=== PATIENT | male | born 1965 | race Caucasian/White ===

== ENCOUNTER 2021-10-19 17:02 | Emergency (ER) | payer OTHER, SELFPAY ==
[2021-10-19 17:09] VITALS: BP 161/99; PULSE 106; RESP 18; TEMP 36.9; O2SAT 98
--- NOTE | 2021-10-19 17:16 | ED.URI ---
HPI - URI/Sore Throat General Chief Complaint: Upper Respiratory Infection Stated Complaint: sinu drainage and ear pain Time Seen by Provider: 10/19/21 17:18 Source: patient and RN notes reviewed Mode of arrival: ambulatory Limitations: no limitations History of Present Illness HPI Narrative: 56-year-old male presents with concern for 7-day history of facial pressure, nasal congestion, cough, chest congestion, postnasal drip, left ear pain. Reports he is taking multisymptom cold medicine for 3 days without relief. He denies fever, bodies, chills, sweats, nausea, vomit, diarrhea. Denies drainage from left ear. MD elicited complaint: cough and sore throat Related Data Home Medications Medication Instructions Recorded Confirmed amlodipine 5 mg tablet 5 mg DAILY 10/19/21 10/19/21 atenolol 50 mg tablet 50 mg DAILY 10/19/21 10/19/21 atorvastatin 40 mg tablet 1 tablet DAILY 10/19/21 10/19/21 budesonide-formoterol HFA 160 2 inh inhalation BID 10/19/21 10/19/21 mcg-4.5 mcg/actuation aerosol inhaler (Symbicort) citalopram 40 mg tablet 40 tablet DAILY 10/19/21 10/19/21 hydrocodone 10 mg-acetaminophen 1 tablet TID 10/19/21 10/19/21 325 mg tablet methocarbamol 500 mg tablet 1 tablet BID 10/19/21 10/19/21 pantoprazole 40 mg tablet,delayed 1 tablet PO DAILY 10/19/21 10/19/21 release trazodone 50 mg tablet 1 tablet DAILY 10/19/21 10/19/21 Allergies Allergy/AdvReac Type Severity Reaction Status Date / Time No Known Allergies Allergy Verified 10/19/21 17:15 Review of Systems Review of Systems: CONSTITUTIONAL: Denies malaise chills, sweats, or fever. EYES: Denies visual changes, redness, or discharge. ENT: Reports rhinorrhea, congestion, sinus pain, otalgia. Sore throat. CARDIOVASCULAR: Denies chest pain, palpitations, or edema. RESPIRATORY: Reports cough. Denies dyspnea. GASTROINTESTINAL: Denies abdominal pain, nausea, vomiting, diarrhea SKIN: Denies rash or itching. MUSCULOSKELETAL: Denies myalgia. NEUROLOGIC: Denies headache. All systems reviewed & are unremarkable except as noted in HPI and below PMFSH Comments At time of signature, agree with nursing past medical, surgical, social and family history. There is no relevant family history pertinent to the presenting complaint Exam Narrative: GENERAL: Nontoxic-appearing and in no acute distress. HEAD: Normocephalic EYES: PERRLA, conjunctivae clear ENT: Nares clear, turbinates edematous and erythematous, sinus tenderness. Mucous membranes moist. Right TM pearly avilez with dull light reflex, left TM erythematous and bulging; no tragal tenderness. Oropharynx not erythematous without lesions. Tonsils not enlarged and without exudate, no drooling, no hoarseness, no trismus, uvula midline. NECK: Supple. No lymphadenopathy CHEST: Clear to auscultation, breath sounds equal. No wheezing, rhonchi, rales, or stridor. No respiratory distress, speaks in full sentences. HEART: Regular rate and rhythm. No murmur heard. SKIN: Warm, dry, no rash. NEURO: Alert and oriented x3. PSYCH: Normal mood and affect Course Course Emergency Course: Patient is aware of diagnosis, understands and agrees to treatment plan. Anticipatory guidance given. Patient agrees to follow-up as directed and is aware of reasons to seek care at the emergency department. Portions of this record may have been created with voice recognition software Level of Care: Express Care Visit Vital Signs Vital signs: Vital Signs Temperature 98.4 F 10/19/21 17:09 Pulse Rate 106 H 10/19/21 17:09 Respiratory Rate 18 10/19/21 17:09 Blood Pressure 161/99 H 10/19/21 17:09 Pulse Oximetry 98 10/19/21 17:09 Oxygen Delivery Room Air 10/19/21 17:09 Temperature 98.4 F 10/19/21 17:09 Pulse Rate 106 H 10/19/21 17:09 Respiratory Rate 18 10/19/21 17:09 Blood Pressure 161/99 H 10/19/21 17:09 Pulse Oximetry 98 10/19/21 17:09 Oxygen Delivery Room Air 10/19/21 17:09 Reviewed. MDM - URI/So
== END 2021-10-19 17:38 | disposition home or self-care (01) ==
PROVIDERS: Emergency Provider Nurse Practitioner; PCP Internal Medicine
DX: H66.002 Acute suppurative otitis media without spontaneous rupture of ear drum, left ear (principal); E78.00 Pure hypercholesterolemia, unspecified; I10 Essential (primary) hypertension; J44.9 Chronic obstructive pulmonary disease, unspecified; G62.9 Polyneuropathy, unspecified
CPT/HCPCS: 99213; G0463

== ENCOUNTER 2022-09-06 15:20 | Emergency (ER) | payer OTHER, SELFPAY ==
[2022-09-06 15:27] VITALS: BP 144/85; PULSE 100; RESP 16; TEMP 37.2; O2SAT 97
--- NOTE | 2022-09-06 15:29 | ED.URI ---
HPI - URI/Sore Throat General Chief Complaint: Upper Respiratory Infection Stated Complaint: head/throat/ears Source: patient and RN notes reviewed History of Present Illness HPI Narrative: 57 yo M presents to urgent care with complaints of worsening congestion, facial pressure and pain behind the corners of the eyes, cough, and chest congestion. Pt states he has had his symptoms for the last 3 days. Denies any fevers, chills, vomiting, diarrhea, chest pain, or SOB. PT has been taking OTC cold and flu meds with minimal relief. Related Data Home Medications Medication Instructions Recorded Confirmed amlodipine 5 mg tablet 5 mg DAILY 10/19/21 10/19/21 atenolol 50 mg tablet 50 mg DAILY 10/19/21 10/19/21 atorvastatin 40 mg tablet 1 tablet DAILY 10/19/21 10/19/21 budesonide-formoterol HFA 160 2 inh inhalation BID 10/19/21 10/19/21 mcg-4.5 mcg/actuation aerosol inhaler (Symbicort) citalopram 40 mg tablet 40 tablet DAILY 10/19/21 10/19/21 hydrocodone 10 mg-acetaminophen 1 tablet TID 10/19/21 10/19/21 325 mg tablet methocarbamol 500 mg tablet 1 tablet BID 10/19/21 10/19/21 pantoprazole 40 mg tablet,delayed 1 tablet PO DAILY 10/19/21 10/19/21 release trazodone 50 mg tablet 1 tablet DAILY 10/19/21 10/19/21 Allergies Allergy/AdvReac Type Severity Reaction Status Date / Time No Known Allergies Allergy Verified 10/19/21 17:15 Review of Systems Review of Systems: Pertinent positives and pertinent negatives per HPI. PMFSH Comments At the time of my signature, I reviewed and agree with the nursing past medical, surgical, social, and family history. There is no relevant family history pertinent to the patient complaint. Exam Narrative: GENERAL: This is a well-nourished, well-developed patient, in no apparent distress. HEAD: normocephalic, atraumatic. EYES: Sclera clear/white. Vision is grossly intact. EARS: External ears normal, auditory canals clear and without drainage, TMs normal without perforation. Hearing grossly intact. NOSE: External nose normal with no obvious nasal discharge, nares erythremic and slightly edematous. THROAT: Mucous membranes moist, posterior pharynx clear. NECK: Neck supple, non-tender without lymphadenopathy, masses or thyromegaly. CARDIOVASCULAR: Regular rate and rhythm without murmurs, gallops, or rubs. RESPIRATORY: Clear to auscultation. Breath sounds equal bilaterally. No wheezes, rales, or rhonchi. SKIN: warm, intact with no suspicious lesions or rash, good texture and turgor. NEURO: awake, alert, and oriented to person, place and time. There were no obvious focal neurologic abnormalities. Course Course Level of Care: Express Care Visit Vital Signs Vital signs: Vital Signs Temperature 99 F 09/06/22 15:27 Pulse Rate 100 09/06/22 15:27 Respiratory Rate 16 09/06/22 15:27 Blood Pressure 144/85 H 09/06/22 15:27 Pulse Oximetry 97 09/06/22 15:27 Oxygen Delivery Room Air 09/06/22 15:27 Temperature 99 F 09/06/22 15:27 Pulse Rate 100 09/06/22 15:27 Respiratory Rate 16 09/06/22 15:27 Blood Pressure 144/85 H 09/06/22 15:27 Pulse Oximetry 97 09/06/22 15:27 Oxygen Delivery Room Air 09/06/22 15:27 Reviewed MDM - URI/Sore Throat MDM Narrative Medical decision making narrative: Go to the ER for any new or worsening symptoms. Avoid smoking/second-hand smoke. Continue to take Tylenol or Motrin for pain. Increase your Vitamin C intake. Use a humidifier or vaporizer at night. Take Medications as prescribed. Drink plenty of water. 8-10 glasses per day. Use flonase 2 times per day for 5 days then as needed Take mucinex 2 times per day and be sure to take with 8oz of water. Follow up with Primary provider if not getting better. Differential Diagnosis Differential diagnosis: Likely upper respiratory infection, otitis media and sinusitis Critical Care Time Critical Care Time Critical Care Time: No Discharge Plan Discharge Clinical Impress
== END 2022-09-06 15:44 | disposition home or self-care (01) ==
PROVIDERS: Emergency Provider Nurse Practitioner Family; PCP Internal Medicine
DX: J32.9 Chronic sinusitis, unspecified (principal); E78.00 Pure hypercholesterolemia, unspecified; I10 Essential (primary) hypertension; J44.9 Chronic obstructive pulmonary disease, unspecified
CPT/HCPCS: 99213; G0463

== ENCOUNTER 2023-06-20 13:47 | Emergency (ER) | payer OTHER, SELFPAY ==
[2023-06-20 13:50] VITALS: BP 113/72; PULSE 73; RESP 20; TEMP 37.1; O2SAT 97
--- NOTE | 2023-06-20 14:05 | ED.URI ---
HPI - URI/Sore Throat General Chief Complaint: Upper Respiratory Infection Stated Complaint: chills/weak/headache Time Seen by Provider: 06/20/23 14:05 Source: patient, RN notes reviewed and old records reviewed Mode of arrival: ambulatory Limitations: no limitations History of Present Illness HPI Narrative: 57 year old male old male presents to express care with complaints of feeling weak, having headache, body aches,cough, with some shortness of breath, fevers with chills which started suddenly yesterday. Patient reports history of COPD and continues to use tobacco daily, patient reports that he has Albuterol inhaler at home.Patient has no tachypnea noted, respirations even and nonlabored SAO2 97% on room air MD elicited complaint: fever, cough (shortness of breath) and other (headache, body aches) Pertinent past history: COPD Onset (ago): day(s) (day 2 of symptoms) Pain scale (0-10): 9 Able to tolerate fluids by mouth: Yes Treatments prior to arrival: acetaminophen Related Data Home Medications Medication Instructions Recorded Confirmed amlodipine 5 mg tablet 5 mg DAILY 10/19/21 06/20/23 atenolol 50 mg tablet 50 mg DAILY 10/19/21 06/20/23 atorvastatin 40 mg tablet 1 tablet DAILY 10/19/21 06/20/23 citalopram 40 mg tablet 40 tablet DAILY 10/19/21 06/20/23 methocarbamol 500 mg tablet 1 tablet BID 10/19/21 06/20/23 pantoprazole 40 mg tablet,delayed 1 tablet PO DAILY 10/19/21 06/20/23 release trazodone 50 mg tablet 1 tablet DAILY 10/19/21 06/20/23 Allergies Allergy/AdvReac Type Severity Reaction Status Date / Time No Known Allergies Allergy Verified 06/20/23 14:06 Review of Systems Review of Systems: CONSTITUTIONAL: Reports malaise, chills, sweats, or fever. EYES: Denies visual changes, redness, or discharge. ENT: Reports rhinorrhea, congestion,no sinus pain, otalgia and no sore throat. CARDIOVASCULAR: Denies chest pain, palpitations, or edema. RESPIRATORY: Reports cough.? Denies acute dyspnea, reports some ALFONSO. GASTROINTESTINAL: Denies abdominal pain, nausea, vomiting, diarrhea SKIN: Denies rash or itching. MUSCULOSKELETAL: Reports myalgia. NEUROLOGIC: Reports headache. All systems reviewed & are unremarkable except as noted in HPI and below PMFSH Past Medical History Medical History (Updated 06/21/23 @ 10:51 by Karrie Alba NP) COPD (chronic obstructive pulmonary disease) DDD (degenerative disc disease) Elevated cholesterol GERD (gastroesophageal reflux disease) Hypertension Surgical History Surgical History (Updated 06/21/23 @ 10:53 by Karrie Alba NP) H/O cervical spine surgery History of sinus surgery Social History Social History (Updated 06/21/23 @ 10:51 by Karrie Alba NP) Smoking packs per day: 1 Smoking cigarettes per day: 20.0 Smoking status: Current every day smoker Tobacco type: cigarettes Alcohol intake: unknown Substance use type: does not use Living arrangements: with family Gender identity (if verbalized by the patient): Male Comments At time of signature, agree with nursing past medical, surgical, social and family history. There is no relevant family history pertinent to the presenting complaint Exam Narrative: GENERAL: Well-appearing, well-nourished, and in no acute distress. HEAD: Normocephalic EYES: PERRLA, conjunctivae clear ENT: Nares clear, turbinates edematous and erythematous, clear discharge. Mucous membranes moist. TM pearly avilez with dull light reflex bilaterally; no tragal tenderness. Oropharynx erythematous without lesions. Tonsils not enlarged and without exudate, no drooling, no hoarseness, no trismus, uvula midline.post nasal drainage NECK: Supple. No lymphadenopathy CHEST: Clear to auscultation, breath sounds equal. No wheezing, rhonchi, rales, or stridor. No respiratory distress, speaks in full sentences.cough noted SAO2 97% on room air HEART: Regular rate and rhythm. No murmur heard. SKIN: [place]
== END 2023-06-20 14:20 | disposition home or self-care (01) ==
PROVIDERS: Emergency Provider Registered Nurse; PCP Internal Medicine
DX: U07.1 COVID-19 (principal); J44.9 Chronic obstructive pulmonary disease, unspecified; E78.00 Pure hypercholesterolemia, unspecified; K21.9 Gastro-esophageal reflux disease without esophagitis; I10 Essential (primary) hypertension; F17.210 Nicotine dependence, cigarettes, uncomplicated
CPT/HCPCS: 87426; 87804; 99213; G0463

== ENCOUNTER 2025-01-08 18:53 | Emergency (ER) | payer OTHER, SELFPAY ==
--- NOTE | 2025-01-08 18:54 | ED.EXTPRO ---
HPI - Extremity Problem General Chief complaint: Extremity Injury, Lower Stated complaint: right knee swollen/itchy Time Seen by Provider: 01/08/25 18:54 Source: patient Mode of arrival: ambulatory Limitations: no limitations History of Present Illness HPI Narrative: Jose is a 59-year-old male patient presenting to the clinic today with complaints of right knee swelling/itching. He reports he thinks he got bitten by an insect. Has a couple spots on the right knee in 1 spot on the left knee that are itching and painful when he itches some. Denies any fevers, chills, body aches. No difficulty breathing, chest pain, shortness of breath. Related Data Home Medications ?Medication ?Instructions ?Recorded ?Confirmed ?Last Taken ?Type amlodipine 5 mg tablet 5 mg DAILY 10/19/21 06/20/23 Unknown History atenolol 50 mg tablet 50 mg DAILY 10/19/21 06/20/23 Unknown History atorvastatin 40 mg tablet 1 tablet DAILY 10/19/21 06/20/23 Unknown History citalopram 40 mg tablet 40 tablet DAILY 10/19/21 06/20/23 Unknown History methocarbamol 500 mg tablet 1 tablet BID 10/19/21 06/20/23 Unknown History pantoprazole 40 mg tablet,delayed 1 tablet PO DAILY 10/19/21 06/20/23 Unknown History release trazodone 50 mg tablet 1 tablet DAILY 10/19/21 06/20/23 Unknown History clopidogrel 75 mg tablet mg 01/08/25 Unknown History hydrocodone 10 mg-acetaminophen tablet 01/08/25 Unknown History 325 mg tablet Allergies Allergy/AdvReac Type Severity Reaction Status Date / Time No Known Allergies Allergy Verified 01/08/25 18:57 Review of Systems Review of Systems: Pertinent positives per HPI. Patient denies any fever, chills, rash, headache, visual changes, dizziness, cough, runny nose, sore throat, shortness of breath, chest pain, palpitations, nausea, vomiting, diarrhea, constipation, abdominal pain, or any urinary issues. [facility] Past Medical History Medical History GERD (gastroesophageal reflux disease) DDD (degenerative disc disease) Hypertension Elevated cholesterol COPD (chronic obstructive pulmonary disease) Surgical History Surgical History History of sinus surgery H/O cervical spine surgery Social History Social History Smoking packs per day: 1 Smoking cigarettes per day: 20.0 Smoking status: Current every day smoker Tobacco type: cigarettes Alcohol intake: unknown Substance use type: does not use Living arrangements: with family Gender identity (if verbalized by the patient): Male Comments At the time of my signature, I reviewed and agree with the nursing past medical, surgical, social, and family history. There is no relevant family history pertinent to the patient complaint. Exam Narrative: General: Well-developed, well nourished, in no apparent distress Head: Normocephalic, atraumatic. Cardio: Regular rate and rhythm, s1 and s2 normal, no murmur appreciated. Resp: Clear to auscultation bilaterally, no rhonchi, rales, wheezing or rubs. Integumentary: [place], warm, and dry, itching, raised, mildly indurated insect bites to the right knee and left knee Course Course Emergency Course: Portions of this record may have been created with voice recognition software. Level of Care: Express Care Visit Vital Signs Vital signs: Vital signs reviewed MDM - Extremity (Nontraumatic) MDM Narrative Medical decision making narrative: At the time of visit patient is resting comfortably on the exam table. Patient appears to be nontoxic. Complaints of right knee swelling/itching. He reports he thinks he got bitten by an insect. Has a couple spots on the right knee in 1 spot on the left knee that are itching and painful when he itches some. Denies any fevers, chills, body aches. No difficulty breathing, chest pain, shortness of breath. Plan: I suspect patient has general allergic reaction to insect bite to bilateral knees. Prescription for triamcinolone cream was sent to the pharmacy. Supportive measures were discussed with the patient and they voiced understanding discharge instructions and agrees to treatment plan. Return precautions reviewed Differential Diagnosis Differential diagnosis: Likely herpes zoster, gout, cellulitis and other (Insect bite, general allergic reaction, eczema,) Discharge Plan Discharge Clinical Impression: Allergic reaction to insect bite Patient Disposition: Home Condition: Stable Instructions: Antibiotic Form, Insect Bite or Sting (ED), General Allergic Reaction (ED) Additional Instructions: I suspect you have allergic reaction due to an insect bite Apply triamcinolone cream to the affected area twice daily as directed Avoid hot showers Avoid scratching and this causes rash to spread May take benadryl 25-50mg every 6 hours as needed for itching. Follow up with your PCP in 3-5 days if symptoms persist or sooner if they worsen Go to the Emergency Room if symptoms worsen- fever, rash spreading with treatment, shortness of breath, tongue swelling, drooling, or chest pain Patient Language: Macedonian Prescriptions: New triamcinolone acetonide 0.1 % cream 1 applic topical BID 7 Days Qty: 30 0RF No Action atorvastatin 40 mg tablet 1 tablet DAILY methocarbamol 500 mg tablet 1 tablet BID citalopram 40 mg tablet 40 tablet DAILY trazodone 50 mg tablet 1 tablet DAILY amlodipine 5 mg tablet 5 mg DAILY pantoprazole 40 mg tablet,delayed release (DR/EC) 1 tablet PO DAILY atenolol 50 mg tablet 50 mg DAILY clopidogrel 75 mg tablet hydrocodone-acetaminophen 10-325 mg tablet Follow-up/Referrals: Dyllan,Benny More MD [Primary Care Provider] - Time of Disposition: 19:10 Quality NIHSS Nursing Documentation ED NIHSS nursing documentation: reviewed/agree
--- OUTSIDE RECORDS SUMMARY | 2025-01-08 18:56 | XMS_ITS | Clinical Summary ---
Author Organization [facility] Address [address] [place] [address] Care Team Providers Care Small Business Consultant Name Role Phone Unavailable Primary Care Provider Unavailabl e Source Comments [facility],non-owned Affiliates and Associated Physician Practices is amultiple site organization consisting of ambulatory clinics and hospital sitesin [place], [place], [place] and [place]. This disclosure is being madepursuant to the Care Everywhere program and may not contain all information available regarding this patient. Last updated 18.[employer] Allergies No known active allergies Medications * Be aware that medications may not be up to date on this document. Alwaysverify current medications with the patient. gabapentin (NEURONTIN) 300 MG capsule Take 300 mg by mouth at bedtime. Active Active Problems Problem Noted Date Diagnosed Date Pain in joint, shoulder region 07/25/2011 Social History Tobacco Use Types Packs/Day Years Used Date Smoking Tobacco: Every Day Sex and Gender Information Value Date Recorded Sex Assigned at Not on file Legal Sex Male 6:19 AM [employer] Gender Identity Not on file Sexual Orientation Not on file Last Filed Vital Signs Vital Sign Reading Time Taken Comments Blood Pressure 130/86 07/25/2011 11:05 AM [employer] Pulse 69 07/25/2011 11:05 AM [employer] Temperature - - Respiratory Rate 16 07/25/2011 11:05 AM [employer] Oxygen Saturation 97% 07/25/2011 11:05 AM [employer] Inhaled Oxygen Concentration - - Weight - - Height - - Body Mass Index - - Plan of Treatment Health Maintenance Due Date Last Done Comments COLOGUARD (AGES 45-75) - COL ON CA SCREENING 1967 COLON MONITORING 1967 COLONOSCOPY - COLON CA SCREENING 1967 CT COLONOGRAPHY - COLON CA SCREENING 1967 Colorectal Cancer Screening 1967 FIT - COLON CA SCREENING 1967 FLEX SIG - COLON CA SCREENING 1967 LIPID TESTING 1967 HIV SCREENING 08/23/1982 HEPATITIS C SCREENING 08/19/1985 DTAP/TDAP/TD VACCINES (1 - Tdap) 08/23/1986 HEPATITIS B VACCINE (1 of 3 - 19+ 3-dose series) 08/23/1986 PNEUMOCOCCAL VACCINE 50+ (1 of 1 - PCV) 08/23/2017 ZOSTER VACCINE (1 of 2) 08/23/2017 COVID-19 VACCINE (1 - 2023-2 5 season) 2024 DEPRESSION SCREENING 05/29/2024 INFLUENZA VACCINE (#1) 2025 HIB VACCINE Aged Out No longer eligi ble based on patient's age to complete this topic HPV VACCINE Aged Out No longer eligi ble based on patient's age to complete this topic MENINGOCOCCAL (Group B) VACC INE SHARED DECISION-MAKING Aged Out No longer eligibl e based on patient's age to complete this topic MENINGOCOCCAL GROUPS A/C/Y/W VACCINE Aged Out No longer eligible b ased on patient's age to complete this topic Insurance MEDICARE [facility] MEDICAID - OUT OF STATE
--- OUTSIDE RECORDS SUMMARY | 2025-01-08 18:56 | XMS_ITS | Clinical Summary ---
Author Organization [facility] Address [address] [place] [address] Phone Care Team Providers Care Forging Machine Operator Name Role Phone Jacque Ryder APRN, DRAFTER MARINE Unavailable Benny Mijares MD Primary Care Provider [phone] Maeve Lopez ELECTRICAL DESIGN ENGINEER, DRAFTER MARINE Unavailable Blaine Ashby MD Unavailable Chau Rush MD Unavailable Francesco Junior MD Unavailable [phone] Allergies No known active allergies Medications traZODone (DESYREL) 50 MG Tablet nightly as needed. 07/14/19 23 Active furosemide (LASIX) 20 MG Tablet Take 1 Tablet by mouth daily as needed (leg edema). 30 Tablet 3 03/14/20 23 Active Additional Information Patient not taking.Reported on 12/30/2024 citalopram (CeleXA) 40 MG Tablet Take 40 mg by mouth every morning. 05/31/19 24 Active cyclobenzaprine (FLEXERIL) 10 MG Tablet Take 1 Tablet by mouth 3 times daily as needed for Muscle spasms. 42 Tablet 05/21/20 24 Active HYDROcodone-acetam inophen (NORCO) 10-325 MG TabletIndications: Chronic pain syndrome Take 1 Tablet by mouth 3 times daily. By Pain Specialist 90 Tablet 06/18/19 25 Active albuterol 108 (90 Base) MCG/ACT Aerosol Solution take 1-2 Puffs by inhalation every 6 hours as needed for Wheezing. 18 g 2 07/16/19 25 Active gabapentin (NEURONTIN) 100 MG Capsule 100 mg 3 times daily as needed. 08/23/19 25 Active clopidogrel (Plavix) 75 MG Tablet Take 1 Tablet by mouth daily. 90 Tablet 3 09/28/19 25 Active aspirin 81 MG Chewable Tablet Take 1 Tablet by mouth daily. 09/28/19 25 Active amLODIPine (NORVASC) 5 MG Tablet Take 1 Tablet by mouth every morning. 90 Tablet 3 10/24/19 25 Active pantoprazole (PROTONIX) 40 MG Tablet Delayed ResponseIndication s:Gastroesophageal reflux disease, unspecified whether esophagitis present Take 1 Tablet by mouth daily. 90 Tablet 3 12/31/19 25 Active atenolol (TENORMIN) 50 MG TabletIndications: Primary hypertension Take 1 Tablet by mouth 2 times daily. 180 Tablet 3 12/31/19 25 Active atorvastatin (LIPITOR) 40 MG TabletIndications: Mixed hyperlipidemia Take 1 Tablet by mouth nightly. 90 Tablet 3 12/31/19 25 Active atorvastatin (LIPITOR) 40 MG Tablet Take 1 Tablet by mouth nightly. 90 Tablet 1 06/28/19 25 025 Discontinu ed(Reorder ) atenolol (TENORMIN) 50 MG Tablet Take 1 Tablet by mouth 2 times daily. 180 Tablet 1 08/22/19 25 025 Discontinu ed(Reorder ) pantoprazole (PROTONIX) 40 MG Tablet Delayed ResponseIndication s:Gastroesophageal reflux disease, unspecified whether esophagitis present Take 1 Tablet by mouth daily. 90 Tablet 3 08/30/19 25 025 Discontinu ed(Reorder ) ergocalciferol (VITAMIN D) 58509 UNIT CapsuleIndications :Vitamin D deficiency Take 1 Capsule by mouth once a week for 12 doses. 12 Capsule 10/07/19 25 025 Active Problems Problem Noted Date Diagnosed Date COVID-19 10/23/2024 Dizziness 10/06/2024 Dysphagia 10/01/2024 History of coronary artery stent placement 10/01 2-vessel coronary artery disease 09/27/2024 Abnormal findings on diagnos tic imaging of heart and coronary circulation 09/06/2024 Gastroesophageal reflux disease 08/29/[address] lung nodules on CT 08/29/2024 Positive cardiac stress test 08/29/2024 Thoracic outlet syndrome 08/29/2024 Abnormal cardiovascular stress test 08/10/2024 Tobacco abuse 05/13/2024 Chronic obstructive pulmonary disease 05/13/2024 Primary hypertension 05/13/2024 Chronic pain syndrome 05/13/2024 Stenosis of right carotid artery 05/13/2024 Chest pain 05/13/2024 Abnormal EKG 05/13/2024 Personal history of tobacco use, presenting hazards to health 05/13/2024 Hyperglycemia 05/13/2024 Vitamin D deficiency 05/13/2024 Mixed hyperlipidemia 11/07/2022 Centrilobular emphysema 11/07/2022 Benign essential HTN 09/21/2022 Hx of degenerative disc disease 09/21/2022 Herniated lumbar intervertebral disc 09/21/2022 Herniated cervical disc 09/21/2022 Dysthymic disorder 09/21/2022 Tobacco use 03/19/2020 Chronic bilateral low back pain with bilateral s ciatica 03/19/2020 Neuropathy 03/19/2020 Overview (09/21/2022): feet and legs GERD without esophagitis 02/18/2020 Resolved Problems Problem Noted Date Diagnosed Date Resolved Date GI bleed 09/21/2022 11/07/2022 Encounters Date Type Department Care Team Description 01/02/2025 1:00 PM CDT Office Visit [facility] - Cardiology [facility] [address] [place] [phone] Francesco Junior MD PAD (peripheral artery disease) (HCC) (Primary Dx); Benign essential HTN; Mixed hyperlipidemia; Primary hypertension; 2-vessel coronary artery disease Discharge Disposition: Discharged to home or Selfcare 12/31/2024 [facility] [address] [place] [address] Benny Mijares MD Medication Management 12/30/2024 11:15 AM CDT Office Visit [facility] Family Medicine [facility] [address] [place] [address] Benny Mijares MD Gastroesophageal reflux disease, unspecified whether esophagitis present (Primary Dx); Therapeutic drug monitoring; Primary hypertension; Mixed hyperlipidemia Discharge Disposition: Discharged to home or Selfcare 12/30/2024 Travel 12/23/2024 Telephone [facility] [address] [place] [address] Benny Mijares MD 11/05/2024 12:35 PM CDT - 11/05/2024 2:38 PM CDT Surgery [facility] Cardiac Head Sulfide Operator [address] [place] [address] Francesco Junior MD Staged PCI to RCA 11/05/2024 12:03 PM CDT - 11/05/2024 4:07 PM CDT Hospital Encounter [facility] Cardiac Head S[facility] Operator [address] [place] [address] Francesco Junior MD Discharge Disposition: Discharged to home or Selfcare 11/05/2024 Travel 11/04/2024 Prep for Procedure [facility] Laboratory Services [address] [place] [address] Francesco Junior MD Abnormal cardiovascular stress test (Primary Dx) 10/24/2024 11:37 AM CDT - 10/24/2024 2:40 PM CDT Hospital Encounter [facility] Cardiac Head Sulfide Operator [address] [place] [address] Francesco Junior MD 2-vessel coronary artery disease Discharge Disposition: Discharged to home or Selfcare 10/23/2024 11:30 AM CDT Telemedicine [facility] [address] [place] [address] Benny Mijares MD Primary hypertension (Primary Dx); COVID-19; Dizziness; Screening for prostate cancer 10/22/2024 10:30 AM CDT Office Visit [facility] General Surgery - [place] [address] [address] Benny Mijares MD Kumar, Raman, MD Esophageal spasm (Primary Dx); Gastroesophageal reflux disease, unspecified whether esophagitis present; Dysphagia, unspecified type Discharge Disposition: Discharged to home or Selfcare 10/22/2024 Results Follow-Up [facility] Adult Pediatric Inpatient Virtual [address] [place] [address] Maeve Lopez APRN, TORRIE ADULT TRANS THORACIC ECHO 2D COMPLETE 10/22/2024 Telephone [facility] Cardiology [facility] [address] [place] [address] Francesco Junior MD Results 10/22/2024 Travel 10/18/2024 Telephone [facility] Cardiology [facility] [address] [place] [address] Francesco Junior MD 10/17/2024 10:54 AM CDT - 10/17/2024 12:28 PM CDT Emergency [facility] Emergency [address] [place] [address] Qing Romero APRN, DRAFTER MARINE COVID Discharge Disposition: Discharged to home or Selfcare 10/17/2024 Telephone [facility] Family Medicine [facility] [address] [place] [address] Benny Mijares MD 10/17/2024 Travel 10/15/2024 4:57 PM CDT - 10/15/2024 11:59 PM CDT Hospital Encounter [facility] Cardiology Services [address] [place] [address] Maeve Lopez APRN, DRAFTER MARINE Discharge Disposition: Discharged to home or Selfcare 10/15/2024 Travel 10/08/2024 Telephone [facility] [address] [place] [address] Benny Mijares MD Referral from Last 3 Months Immunizations Immunization Administration Dates Next Due Influenza Vaccine 04/19/2024 Influenza Vaccine, MDCK,quad rivalent, pres free 03/17/2022,04/01/2021 Influenza Vaccine, Quadrivalent, PF 03/22/2023,0 02/18/2020,01/18/2016 Influenza, Seasonal, Injectable, Undefined 01/26 Pneumococcal conjugate PCV20 , polysaccharide [id number] conjugate, adjuvant, PF 12/26/2022 TDAP Vaccine 02/01/2016 Zoster Vaccine Recombinant 11/22/2022 Family History Medical History Relation Name Comments No Known Problems Daughter Hypertension Father No Known Problems Maternal Grandfather Diabetes Maternal Grandmother Aneurysm Mother brain Breast Cancer Mother Cancer Mother breast Osteoarthritis Mother Other-comment Mother DEGENERATIVE D ISC DISEASE No Known Problems Paternal Grandfather Heart Attack Paternal Grandmother Relation Name Status Comments Daughter Alive Father Alive Maternal Grandfather Maternal Grandmother Mother pulmonary embol ism Paternal Grandfather Paternal Grandmother Social History Tobacco Use Types Packs/Day Years Used Date Smoking Tobacco: Every Day Cigarettes 1 41.6 Started: 1983 Passive Smoke Exposure: Current Smokeless Tobacco: Former Chew Quit: 1989 Tobacco Cessation:Ready to Q uit: No; Counseling Given: Yes Alcohol Use Standard Drinks/Week Comments Yes 1 (1 standard drink = 0.6 oz pur e alcohol) once a month 6-7 beers [facility] Utilities Answer Date Recorded In the past 12 months has rumr, oil, or water [employer] threatened to shut off services in your home? No 08/29/2023 Social Connection and Isolation Panel Answer Date Recorded In a typical week, how many times do you talk on the phone with family, friends, or neighbors? More than three times a week 08/29/2023 How often do you get togethe r with friends or relatives? More than three times a week 08/29/2023 How often do you attend chur or quaker services? Never 08/29/2023 Do you belong to any clubs o r organizations such as mandaen groups, unions, fraternal or athletic groups, or school groups? No 08/29/2023 How often do you attend meet ings of the clubs or organizations you belong to? Never 08/29/2023 Are you , , di vorced, , never , or living with a partner? 08/29/2023 AUDIT-C Answer Date Recorded Q1: How often do you have a drink containing alc ohol? Monthly or less 08/29/2023 Q2: How many drinks containi ng alcohol do you have on a typical day when you are drinking? 1 or 2 08/29/2023 Q3: How often do you have si x or more drinks on one occasion? Less than monthly 08/29/2023 Overall Financial Resource Strain (CARDIA) Answe r Date Recorded How hard is it for you to pa y for the very basics like food, housing, medical care, and heating? Not hard at all 08/29/2023 PHQ-2 Answer Date Recorded Total Score - Questions 1-9 0 10/2024 [facility] - Occupational Stress Questionnaire Answer Date Recorded Do you feel stress - tense, restless, nervous, or anxious, or unable to sleep at night because your mind is troubled all the time - these days? Not at all 08/29/2023 Exercise Vital Sign Answer Date Recorde d On average, how many days pe r week do you engage in moderate to strenuous exercise (like a brisk walk)? 0 days 08/29/2023 On average, how many minutes do you engage in exercise at this level? 0 min 08/29/2023 Hunger Vital Sign Answer Date Recorded Within the past 12 months, y ou worried that your food would run out before you got the money to buy more. Never true 08/29/19 24 Within the past 12 months, t he food you bought just didn't last and you didn't have money to get more. Never true 08/29/2023 PRAPARE - Transportation Answer Date Re corded In the past 12 months, has l ack of transportation kept you from medical appointments or from getting medications? No 06/2023 In the past 12 months, has l ack of transportation kept you from meetings, work, or from getting things needed for daily living? No 08/29/2023 Housing Stability Vital Sign Answer Israel e Recorded In the last 12 months, was t here a time when you were not able to pay the mortgage or rent on time? No 08/29/2023 In the last 12 months, how many places have you lived? 2 08/29/2023 In the last 12 months, was t here a time when you did not have a steady place to sleep or slept in a half-way (including now)? No 08/29/2023 Sexually Active Control Partners Comments Not Currently Female Sex and Gender Information Value Date Recorded Sex Assigned at Male 01/10/2023 2:18 PM CDT Legal Sex Male 9:45 PM CDT Gender Identity Male 01/10/2023 2:18 PM CDT Sexual Orientation Not on file Last Filed Vital Signs Vital Sign Reading Time Taken Comments Blood Pressure 130/84 01/02/2025 1:01 PM CDT Pulse 84 01/02/2025 1:01 PM CDT Temperature 36.6 C (97.9 F) 01/02/2025 1:01 PM CDT Respiratory Rate 16 01/02/2025 1:01 PM CDT Oxygen Saturation 97% 01/02/2025 1:01 PM CDT Inhaled Oxygen Concentration - - Weight 104.3 kg (230 lb) 01/02/2025 1:01 PM CDT Height 175.3 cm (5' 9) 01/02/2025 1:01 PM CDT Body Mass Index 33.97 01/02/2025 1:01 PM CDT Plan of Treatment Upcoming Encounters Date Type Department Care Team (Late st Contact Info) Description 04/08/2025 2:00 PM PEOPLESOFT HCM DEVELOPER Office Visit [facility] - Cardiology [facility] [address] [place] [address] Francesco Junior MD [address] [address] [place] [address] 05/08/2025 11:00 AM PEOPLESOFT HCM DEVELOPER Office Visit [facility] - Family Medicine [facility] [address] [place] [address] Benny Mijares MD [address] [address] Health Maintenance Due Date Last Done Comments Hepatitis C Virus (HCV) Screening 1965 Hepatitis B Immunization (1 of 3 - 19+ 3-dose series) 08/23/1986 Cologuard 08/23/2012 Zoster Immunization (2 of 2) 01/17/2023 11/22/2022 Immunochemical Fecal Occult Blood 09/22/2023 09/21/2022 SARS-COV-2 Immunization (2 - season) 2024 10/09/2020 Influenza Immunization (#1) 01/27/202503/30, 03/22/2023, 03/17/2022, Additional history exists Td Immunization Every 10 Years (Adults With 1 Tdap) 01/31/2026 02/01/2016 Colonoscopy 10/01/2027 09/30/2022, 08/13/2018 Colorectal Cancer Screening 10/01/2027 Respiratory Syncytial Virus (RSV) Immunization (Adult) (1 - 1-dose 75+ series) 08/23/2042 DTaP/Tdap/Td Immunization Discontinued 02/01/2016 Pneumococcal Immunization (50+ years) Completed 12/26/2022 Pneumococcal Immunization Combined Discontinued 12/26/2022 PSA Discussion Completed 09/23/2023, 06/24/2021 Lung Cancer Screening Discontinued 06/10/2024 Human Papillomavirus (HPV) Immunization Aged Out No longer eligible based on patient's age to complete this topic Meningococcal Immunization (ACWY) Aged Out No longer eligible based on patient's age to complete this topic Rotavirus Immunization Aged Out No lo nger eligible based on patient's age to complete this topic Medical Devices Implanted Type Area Air Dispatcher Device Identifier Shelf Expiration Date Model / Serial / Lot System Coronary Stent Xience Skypoint Everolimus Eluting 3.25 Mm X 38 Mm / Rapid-Exchang e - [id number] Implanted:Qty : 1 on 09/26/2024 by Francesco Junior MD at [facility] IMPLANT [employer] [id number] 11/18/2026 [id number] / / [id number] System Coronary Stent Xience Skypoint Everolimus Eluting 4.00 Mm X 18 Mm / Rapid-Exchang e - [id number] Implanted:Qty : 1 on 11/05/2024 by Francesco Junior MD at [facility] IMPLANT N/A: Coronary [employer] [id number] 07/14/2027 [id number] / / [id number] Procedures Procedure Name Priority Date/Time Associated Diagnosis Comments URINE DRUG SCREEN Today 12/30/2024 Therapeutic drug monitoring PAIN CONSULT 12/26/2024 12:00 AM CDT PAIN CONSULT 11/25/2024 12:00 AM CDT INTERVENTIONAL CATH PROCEDURE Routine 11/05/2024 1:43 PM CDT 2-vessel coronary artery disease CBC WITH AUTO DIFFERENTIAL STAT 11/05/2024 12:07 PM CDT Abnormal cardiovascular stress test CMP (COMPREHENSIVE METABOLIC PANEL) STAT 11/05/2024 12:07 PM CDT Abnormal cardiovascular stress test COMPLETE BLOOD COUNT (CBC) WITH DIFF STAT 11/05/2024 12:07 PM CDT Abnormal cardiovascular stress test PAIN CONSULT 10/28/2024 12:00 AM CDT SARS-COV-2 BY MOLECULAR STAT 10/24/2024 1:15 PM CDT XR CHEST SINGLE VIEW STAT 10/17/2024 11:17 AM CDT RSV,SARS-COV-2,INFLUEN ZA A&B BY PCR STAT 10/17/2024 10:53 AM CDT ADULT TRANS THORACIC ECHO 2D COMPLETE Routine 10/15/2024 5:49 PM CDT Abnormal cardiovascular stress test Primary hypertension CT CHEST SCREENING WO Routine 06/10/2024 9:34 AM PEOPLESOFT HCM DEVELOPER Personal history of tobacco use, presenting hazards to health PSA SCREEN Routine 09/23/2023 11:14 AM CDT Screening for prostate cancer STOOL, OCCULT BLOOD, DIAGNOSTIC, VIA GUAIAC STAT 09/21/2022 3:49 PM CDT from Last 3 Months or Most Recently Relevant to Health Maintenance Results * URINE DRUG SCREEN (12/30/2024) Urine 12/30/2024 Benny Mijares MD URINE ORDERABLES Final Re sult * PAIN CONSULT (12/26/2024 12:00 AM CDT) Only the most recent of3 resultswithin the time period is included. 12/26/2024 us Provider Scan GENERIC SCAN ORDERS CONSULT Chelsea l Result SCAN * INTERVENTIONAL CATH PROCEDURE (11/05/2024 1:43 PM CDT) Anatomical Region Laterality Modality CARDIO N/A X-Ray Angiograph y Narrative 11/05/2024 1:42 PM CDT Cardiac Catheterization intervention Post-procedure note Date of Procedure: 11/05/24 Surgeon(s): Francesco Junior MD Procedure(s): Cardiac Cath Pre-operative Diagnosis: Coronary artery disease Post-operative Diagnosis: PCI to RCA Access: radial Estimated Blood Loss: Minimal Procedure details: Access obtained from the right radial artery with a 6 Anguillan sheath. Heparin and Nitroglycerine was used for anticoagulation and as an antispasmodic. A 6Fr JR4 guide catheter was passed into the left ventricle across aortic valve. LVEDP was documented. The catheter was then pulled back and placed in the right coronary artery. Angiographic report contrast injection in multiple planes. Angiography performed in multiple planes. The catheter was then removed. Sedation: 22 minutes of moderate sedation was provided under my direct supervision by a trained observer in the dye lab technician. Findings: Hemodynamics: Heart rate: 45 , BPM Blood pressure:118/89 mmHg, LVEDP: 8 mmHg Intervention details: Staged intervention to mid RCA. Patient was heparinized with ACT >300. The RCA was engaged using 6 Fr JR4 guide catheter. The mid RCA lesion was crossed using rebekah blue coronary wire. The mid RCA lesion was dilated with 3.0 x 8 mm NC balloon. IVUS was advanced distal to the lesion. The distal reference was 4.5 mm and proximal reference was 4.7 mm. The lesion consist of mixed plaque(mostly soft). Considering there was no plaque free area to land the stent. We decided to place 4.0 mm stent. The mid RCA lesion was stented with 4.0 x 18 mm Xience drug eluting stent at nominal pressure. The final angiogram showed no residual stenosis with ANDREA 3 flow without any dissection or perforation. Sedation: 1 mg Versed, 2 mg Morphine. Fluroscopy: Air Kerma: 261 mgy. Fluoro time: 4.7 Min Contrast Use: 50 Ml Complications: None Impression/assessment /plan Successful IVUS guided mid RCA PCI with 4.0 x 18 mm Xience drug eluting stent. Continue with aspirin 81 mg daily indefinitely Continue with Plavix 75 mg daily for at least 1 year Continue with high intensity statins. Follow up in 1 month with me. Signed: Francesco Junior MD, 11/05/2024, 1:35 PM CDT Francesco Junior MD IMG CARDIAC CATH Final Resul t * (ABNORMAL) CBC WITH AUTO DIFFERENTIAL (11/05/2024 12:07 PM CDT) WBC 8.64 4.00 - 12.00 10(3)/mcL 11/05/2024 12:26 PM CDT [facility] RBC 4.94 4.40 - 5.80 10(6)/mcL 11/05/2024 12:26 PM CDT [facility] HEMOGLOBIN (HGB) 15.4 13.0 - 16.5 g/dL 11/05/2024 12:26 PM CDT [facility] HEMATOCRIT (HCT) 46.1 38.0 - 50.0 % 11/05/2024 12:26 PM CDT [facility] MCV 93.3 82.0 - 96.0 fL 11/05/2024 12:26 PM CDT [facility] MCH 31.2 26.0 - 32.0 pg 11/05/2024 12:26 PM CDT [facility] MCHC 33.4 31.0 - 36.0 g/dL 11/05/2024 12:26 PM CDT [facility] PLATELET COUNT 281 140 - 440 10(3)/mcL 11/05/2024 12:26 PM CDT [facility] RDW 13.0 11.8 - 15.5 % 11/05/2024 12:26 PM CDT [facility] MPV 8.5 8.0 - 12.6 fL 11/05/2024 12:26 PM CDT [facility] NEUTROPHILS 68.7(H) 40.0 - 68.0 % 11/05/2024 12:26 PM CDT [facility] LYMPHOCYTES 19.7 19.0 - 49.0 % 11/05/2024 12:26 PM CDT [facility] MONOCYTES 9.3 3.0 - 13.0 % 11/05/2024 12:26 PM CDT [facility] EOSINOPHILS 2.1 0.0 - 8.0 % 11/05/2024 12:26 PM CDT [facility] BASOPHILS 0.2 0.0 - 1.0 % 11/05/2024 12:26 PM CDT [facility] ABSOLUTE NEUTROPHILS 5.94(H) 1.40 - 5.30 10(3)/mcL 11/05/2024 12:26 PM CDT [facility] ABSOLUTE LYMPHOCYTES 1.70 0.90 - 3.30 10(3)/mcL 11/05/2024 12:26 PM CDT [facility] ABSOLUTE MONOCYTES 0.80 0.10 - 0.90 10(3)/mcL 11/05/2024 12:26 PM CDT [facility] ABSOLUTE EOSINOPHIL 0.18 0.00 - 0.50 10(3)/mcL 11/05/2024 12:26 PM CDT [facility] ABSOLUTE BASOPHILS 0.02 0.00 - 0.10 10(3)/mcL 11/05/2024 12:26 PM CDT [facility] NRBC PER 100 WBC 0 11/06/19 25 12:26 PM CDT [facility] Blood Venipuncture / Unknown 11/05/2024 12:07 PM CDT 11/05/2024 12:18 PM CDT Francesco Junior MD HEMATOLOGY ORDERABLES Final Result [facility] [address] [place] [address] * (ABNORMAL) CMP (COMPREHENSIVE METABOLIC PANEL) (11/05/2024 12:07 PM CDT) SODIUM 139 136 - 145 mmol/L 11/05/2024 12:43 PM CDT [facility] POTASSIUM 4.6 3.5 - 5.1 mmol/L 11/05/2024 12:43 PM CDT [facility] CHLORIDE 103 98 - 107 mmol/L 11/05/2024 12:43 PM CDT [facility] CO2, VENOUS 27 22 - 30 mmol/L 11/05/2024 12:43 PM CDT [facility] ANION GAP 13.6 <18.0 mmol/L 11/05/2024 12:43 PM CDT [facility] GLUCOSE 130(H) 70 - 99 mg/dL 11/05/2024 12:43 PM CDT [facility] BUN 11 8 - 26 mg/dL 11/05/2024 12:43 PM CDT [facility] CREATININE, BLOOD 0.90 0.70 - 1.30 mg/dL 11/05/2024 12:43 PM CDT [facility] BUN/CREATININE RATIO 12 12 - 20 ratio 11/05/2024 12:43 PM CDT [facility] TOTAL PROTEIN 7.2 6.0 - 8.0 g/dL 11/05/2024 12:43 PM CDT [facility] ALBUMIN 4.0 3.5 - 5.0 g/dL 11/05/2024 12:43 PM CDT [facility] A/G RATIO 1.3 1.0 - 2.2 11/05/2024 12:43 PM CDT [facility] CALCIUM 9.1 8.7 - 10.5 mg/dL 11/05/2024 12:43 PM CDT [facility] T BILI 0.7 0.2 - 1.2 mg/dL 11/05/2024 12:43 PM CDT [facility] SGOT (AST) 19 <43 U/L 11/05/2024 12:43 PM CDT [facility] SGPT (ALT) 11 <56 U/L 11/05/2024 12:43 PM CDT [facility] ALKALINE PHOSPHATASE 108 40 - 150 U/L 11/05/2024 12:43 PM CDT [facility] IS THE PATIENT REQUIRED TO BE FASTING? No 11/05/2024 12:43 PM CDT [facility] GFR, ESTIMATED >60 >=60 11/05/2024 12:43 PM CDT [facility] Comment: Creatinine Clearance is the preferred criteria for selecting drug dose adjustments in renally impaired patients. The GFR is provided as additional pertinent clinical information. GFR is reported in mL/min/1.73 sq m. Calculation based on the Chronic Kidney Disease Epidemiology Collaboration (CKD- EPI) equation refit without adjustment for race. GFR, EST. >60 >=60 025 12:43 PM CDT [facility] GFR, EST. NONAFRICAN >60 >=60 11/05/2024 12:43 PM CDT [facility] Blood Venipuncture / Unknown 11/05/2024 12:07 PM CDT 11/05/2024 12:18 PM CDT us Francesco Junior MD CHEMISTRY ORDERABLES Final R esult [facility] [place] [address] * (ABNORMAL) SARS-COV-2 BY MOLECULAR (10/24/2024 1:15 PM CDT) SARSCOV2 DETECTED( A) (Referenc e Range for this test is Not Detected) 10/24/2024 2:08 PM CDT [facility] Comment:This test was perfor med by a Reverse Floorhand PCR Method. Other NASOPHARYNGEAL STRUCTURE / Unknown Non-Phlebotomy Collection / Unknown 10/24/2024 1:15 PM CDT 10/24/2024 1:36 PM CDT Francesco Junior MD MICROBIOLOGY - GENERAL ORDER HOA Final Result [facility] [place] [address] * XR CHEST SINGLE VIEW (10/17/2024 11:17 AM CDT) Anatomical Region Laterality Modality Chest N/A Digital Radiogra phy 10/17/2024 11:5 3 AM CDT Impressions 10/17/2024 11:55 AM CDT IMPRESSION: No acute cardiopulmonary abnormality. Narrative 10/17/2024 11:55 AM CDT EXAM DESCRIPTION: XR CHEST SINGLE VIEW REASON FOR STUDY: pt c/o generalized body aches, headache, fever, chills, and nonprodctive cough since last night around 2200. hx of CAD, COPD, HTN, and current smoker TECHNIQUE: 1 radiographic view(s) of the chest. COMPARISON: 04/19/2024 FINDINGS: LUNGS: No focal opacity, pleural effusion, or pneumothorax. HEART/MEDIASTINUM: Cardiac silhouette normal in size. Mediastinal and hilar contours appear normal. LINES/TUBES: None. BONES: No acute osseous abnormality. THIS IS AN ELECTRONICALLY VERIFIED FINAL REPORT 10/17/2024 11:53 AM - Electronically signed by Sarath Kinney M.D. KR: CHRISTINA Report ID: [id number] Reading Location: [id number] Procedure Note Sarath Kinney MD - 10/17/2024 EXAM DESCRIPTION: XR CHEST SINGLE VIEW REASON FOR STUDY: pt c/o generalized body aches, headache, fever, chills, and nonprodctive cough since last night around 2200. hx of CAD, COPD, HTN, and current smoker TECHNIQUE: 1 radiographic view(s) of the chest. COMPARISON: 04/19/2024 FINDINGS: LUNGS: No focal opacity, pleural effusion, or pneumothorax. HEART/MEDIASTINUM: Cardiac silhouette normal in size. Mediastinal and hilar contours appear normal. LINES/TUBES: None. BONES: No acute osseous abnormality. THIS IS AN ELECTRONICALLY VERIFIED FINAL REPORT 10/17/2024 11:53 AM - Electronically signed by Sarath Kinney M.D. KR: CHRISTINA Report ID: [id number] Reading Location: [id number] IMPRESSION: No acute cardiopulmonary abnormality. Qing Romero APRN, CNP IM DIAGNOSTIC ORD ERABLES Final Result * (ABNORMAL) RSV,SARS-COV-2,INFLUENZA A&B BY PCR (10/17/2024 10:53 AM CDT) FLU A Negative Negative, Error 10/17/2024 11:52 AM CDT [facility] FLU B Negative Negative 10/17/2024 11:52 AM CDT [facility] RESP SYNC VIRUS Negative Negative 10/17/2024 11:52 AM CDT [facility] SARSCOV2 DETECTED(A) (Reference Range for this test is Not Detected) 10/17/2024 11:52 AM CDT [facility] Swab NASOPHARYNGEAL WASHINGS / Unknown Non-Phlebotomy Collection / Unknown 10/17/2024 10:53 AM CDT 10/17/2024 11:08 AM CDT us Qasim Dotson DO MICROBIOLOGY - GENERAL ORDERABLES Final Result [facility] [address] [place] [address] * ADULT TRANS THORACIC ECHO 2D COMPLETE (10/15/2024 5:49 PM CDT) AV Peak Grad mmHg 4.33 mmHg RESULTING AGENCY Mean Aortic Valve Gradient (MAVG) 3 mmHg RESULTING AGENCY LV end sade diam cm 4.8 cm RESULTING AGENCY LV end sys diam cm 3.1 cm RESULTING AGENCY Aortic Root Diam cm 3.2 cm RESULTING AGENCY LA vol index ml/m2 13 ml/m2 RESULTING AGENCY LVOT Peak Hunter m/sec 0.846 m/sec RESULTING AGENCY AV Peak Hunter m/sec 1.04 m/sec RESULTING AGENCY MV Mean Grad mmHg 1 mmHg RESULTING AGENCY MVA by PHT cm2 3.1 cm2 RESUL TING AGENCY E/A Ratio 1.11 RESULTING AGENCY E/E' 6.3 RESULTING AGENCY AV Area (VTI) cm2 3.06 cm2 RESULTING AGENCY SEPTUM DIASTOLIC CM 1 cm RESULTING AGENCY PW DIASTOLIC CM 0.9 cm RESU LTING AGENCY LA VOLUME 28.8 ml RESULTING AGENCY LV EF(estimated)% 63 RESULTING AGENCY Anatomical Region Laterality Modality CARDIO N/A Ultrasound Narrative 10/17/2024 7:11 AM CDT Transthoracic Echocardiography Report (TTE) Patient name MILADYS Masters 1965 Patient ID (UPI) [id number] Indications: Abnormal ECG, Abnormal Stress Test, Hypertension and Chest pain. Study Date10/15/2024 Technical quality: Adequate Type of Study: TTE procedure: Adult Trans Thoracic Echo 2D Complete. Priority:RoutineHR: 54 bpmBP: 113/71 mmHg Conclusions Summary The left ventricle is normal in size. Wall thickness is normal. LV function is normal. There are no regional wall motion abnormalities. LV EF of 60-65%. Normal LV diastolic function. Findings Mitral Valve The mitral valve is normal. There is no evidence of mitral stenosis. There is no significant mitral regurgitation. Aortic Valve The aortic valve is trileaflet with normal leaflet excursion. There is no evidence of aortic valve stenosis. There is no significant aortic valve insufficiency. Tricuspid Valve The tricuspid valve is normal. There is no evidence of tricuspid stenosis. There is no significant tricuspid regurgitation. There is no evidence of pulmonary hypertension. Pulmonic Valve The pulmonic valve structure appears normal. There is no evidence of pulmonic stenosis. There is no significant pulmonic valve regurgitation. Left Atrium The left atrium size is normal. Left Ventricle The left ventricle is normal in size. Wall thickness is normal. LV function is normal. There are no regional wall motion abnormalities. LV EF of 60-65%. Normal LV diastolic function. Right Atrium The right atrium size is normal. Right Ventricle Normal right ventricular cavity size and normal systolic function. Pericardial Effusion Epicardial fat pad noted. Miscellaneous Aortic root and proximal ascending aorta are normal in size. Atrial septum appears intact. IVC is normal in size and respiratory response. Aortic arch appears normal. Valves Mitral Valve Area (PHT): 3.1 cm^2 Area (continuity): 3.09 cm^2 Peak E-Wave: 0.72 m/s Mean Velocity: 0.36 m/s Peak A-Wave: 0.65 m/s Mean Gradient: 1 mmHg Peak Gradient: 2.09 mmHg Deceleration Time: 241 msec P1/2t: 71 msec Tissue Doppler E' Velocity: 0.07 m/s E/E':6.3 E/A Ratio: 1.11 E/Lat E': 6.3 E/Med E':9.9 Aortic Valve Area (continuity): 3.06 cm^2 Mean Velocity: 0.75 m/s Area (VTI):3.06 cm^2 Mean Gradient: 3 mmHg Peak Velocity: 1.04 m/s AV VTI: 24 cm Peak Gradient: 4.33 mmHg Tricuspid Valve Peak E-Wave: 0.59 m/s Peak Gradient: 1.43 mmHg Pulmonic Valve Peak Velocity: 0.91 m/s Mean Velocity: 0.69 m/s Peak Gradient: 3.36 mmHg Mean Gradient: 2 mmHg LVOT Peak Velocity: 0.84 m/s Mean Velocity: 0.57 m/s Peak Gradient: 3 mmHg Mean Gradient: 2 mmHg LVOT Diameter: 2.2 cm LVOT VTI: 19.3 cm Stroke Volume: 73 ml Stroke Volume Index: 33.33 ml/m^2 Structures Left Ventricle Diastolic Dimension: 4.8 cm Systolic Dimension: 3.1 cm Septum Diastolic: 1 cm Septum Systolic: 1.3 cm PW Diastolic: 0.9 cm PW Systolic: 1.5 cm Diastolic Length: 31.1 cm Systolic Length: 17.1 cm EF Calculated: 61.39% CI: 1.81 l/min*m^2 CO: 3.96 l/min RWT: 0.38 LV EDV: 96.6 ml FS: 35.42 % LV EDV Index: 44 m^2 LV Length: 8.08 cm LV ESV: 37.3 ml LVOT Diameter: 2.2 cm LV ESV Index: 17 m^2 Global Longitudinal Strain:-15.8 Right Ventricle RVOT (PLAX) diameter:4.1 cm Tissue Doppler RV S': 15 TAPSE: 2.8 cm Left Atrium LA Systolic Pressure: 9.86 mmHg LA Area: 13.6 cm^2 LA Volume: 28.8 ml LA Index: 13ml/m^2 Right Atrium RA Area: 10.3 cm^2 Great Vessels Aorta Ascending Aorta: 3.3 cm Aorta Root:3.2 cm Ascending Aorta Index:1.51 cm/m^2 Demographics Age 59 Gender Male Race Height 69.02 in. Weight 230.01 lbs. BMI (BSA) 33.95 kg/m^2 (2.19 m^2) Seismograph Observer Angel Edgar Interpreting Vernon Referring Physician Francesco Physician Procedure Note Francesco Junior MD - 10/17/2024 Transthoracic Echocardiography Report (TTE) Patient name MILADYS Masters Dipika 1965 Patient ID (I) [id number] Indications: Abnormal ECG, Abnormal Stress Test, Hypertension and Chest pain. Study Date10/15/2024 Technical quality: Adequate Type of Study: TTE procedure: Adult Trans Thoracic Echo 2D Complete. Priority:RoutineHR: 54 bpmBP: 113/71 mmHg Conclusions Summary The left ventricle is normal in size. Wall thickness is normal. LV function is normal. There are no regional wall motion abnormalities. LV EF of 60-65%. Normal LV diastolic function. Findings Mitral Valve The mitral valve is normal. There is no evidence of mitral stenosis. There is no significant mitral regurgitation. Aortic Valve The aortic valve is trileaflet with normal leaflet excursion. There is no evidence of aortic valve stenosis. There is no significant aortic valve insufficiency. Tricuspid Valve The tricuspid valve is normal. There is no evidence of tricuspid stenosis. There is no significant tricuspid regurgitation. There is no evidence of pulmonary hypertension. Pulmonic Valve The pulmonic valve structure appears normal. There is no evidence of pulmonic stenosis. There is no significant pulmonic valve regurgitation. Left Atrium The left atrium size is normal. Left Ventricle The left ventricle is normal in size. Wall thickness is normal. LV function is normal. There are no regional wall motion abnormalities. LV EF of 60-65%. Normal LV diastolic function. Right Atrium The right atrium size is normal. Right Ventricle Normal right ventricular cavity size and normal systolic function. Pericardial Effusion Epicardial fat pad noted. Miscellaneous Aortic root and proximal ascending aorta are normal in size. Atrial septum appears intact. IVC is normal in size and respiratory response. Aortic arch appears normal. Valves Mitral Valve Area (PHT): 3.1 cm^2 Area (continuity): 3.09 cm^2 Peak E-Wave: 0.72 m/s Mean Velocity: 0.36 m/s Peak A-Wave: 0.65 m/s Mean Gradient: 1 mmHg Peak Gradient: 2.09 mmHg Deceleration Time: 241 msec P1/2t: 71 msec Tissue Doppler E' Velocity: 0.07 m/s E/E':6.3 E/A Ratio: 1.11 E/Lat E': 6.3 E/Med E':9.9 Aortic Valve Area (continuity): 3.06 cm^2 Mean Velocity: 0.75 m/s Area (VTI):3.06 cm^2 Mean Gradient: 3 mmHg Peak Velocity: 1.04 m/s AV VTI: 24 cm Peak Gradient: 4.33 mmHg Tricuspid Valve Peak E-Wave: 0.59 m/s Peak Gradient: 1.43 mmHg Pulmonic Valve Peak Velocity: 0.91 m/s Mean Velocity: 0.69 m/s Peak Gradient: 3.36 mmHg Mean Gradient: 2 mmHg LVOT Peak Velocity: 0.84 m/s Mean Velocity: 0.57 m/s Peak Gradient: 3 mmHg Mean Gradient: 2 mmHg LVOT Diameter: 2.2 cm LVOT VTI: 19.3 cm Stroke Volume: 73 ml Stroke Volume Index: 33.33 ml/m^2 Structures Left Ventricle Diastolic Dimension: 4.8 cm Systolic Dimension: 3.1 cm Septum Diastolic: 1 cm Septum Systolic: 1.3 cm PW Diastolic: 0.9 cm PW Systolic: 1.5 cm Diastolic Length: 31.1 cm Systolic Length: 17.1 cm EF Calculated: 61.39% CI: 1.81 l/min*m^2 CO: 3.96 l/min RWT: 0.38 LV EDV: 96.6 ml FS: 35.42 % LV EDV Index: 44 m^2 LV Length: 8.08 cm LV ESV: 37.3 ml LVOT Diameter: 2.2 cm LV ESV Index: 17 m^2 Global Longitudinal Strain:-15.8 Right Ventricle RVOT (PLAX) diameter:4.1 cm Tissue Doppler RV S': 15 TAPSE: 2.8 cm Left Atrium LA Systolic Pressure: 9.86 mmHg LA Area: 13.6 cm^2 LA Volume: 28.8 ml LA Index: 13ml/m^2 Right Atrium RA Area: 10.3 cm^2 Great Vessels Aorta Ascending Aorta: 3.3 cm Aorta Root:3.2 cm Ascending Aorta Index:1.51 cm/m^2 Demographics Age 59 Gender Male Race Height 69.02 in. Weight 230.01 lbs. BMI (BSA) 33.95 kg/m^2 (2.19 m^2) Seismograph Observer Angel Edgar Interpreting Junior Referring Physician Francesco Physician Maeveseble Early Jessica ELECTRICAL DESIGN ENGINEER, DRAFTER MARINE IMG ECHO ORDER HOA Edited Result - Final * CT CHEST SCREENING WO (06/10/2024 9:34 AM [employer] HCM DEVELOPER) Anatomical Region Laterality Modality Chest N/A Computed Tomogra phy 06/11/2024 8:05 AM [employer] HCM DEVELOPER Impressions 06/11/2024 8:07 AM [employer] HCM DEVELOPER IMPRESSION: Scattered pulmonary nodules with the largest measuring up to 0.5 cm. Mild emphysematous changes of lungs with scattered mild subsegmental atelectasis and scarring. Scattered mild bronchial wall thickening, which is likely related to mild chronic bronchitis/bronchiolitis. Lung-RADS category 2: Benign appearance or behavior. Recommendation: Low dose Screening CT of chest in 12 months. Narrative 06/11/2024 8:07 AM [employer] HCM DEVELOPER EXAM DESCRIPTION: CT CHEST SCREENING WO REASON FOR STUDY: Screening CT of the chest in a current smoker with a 30 pack year smoking history. Additional history: History of COPD and emphysema. History of exposure to diesel fumes.. TECHNIQUE: Low dose CT scan of the chest was performed without intravenous contrast using helical scanning technique. The exam extends from the lung apices through the lung bases. Automatic exposure control was used as a dose optimization technique. NOTE: This study was performed for the specific purposes of lung cancer screening and is not an alternative to diagnostic chest CT. RADIATION DOSE: CT dose index volume (CTDIvol) = 3.62 mGy COMPARISON: None FINDINGS: SMOKING RELATED LUNG DISEASE: There are mild emphysematous changes of lungs with scattered mild subsegmental atelectasis and scarring. There is no definite evidence of a pneumothorax. The central airways are grossly patent. There is scattered mild bronchial wall thickening, which is likely related to mild chronic bronchitis/bronchiolitis. There is no definite evidence of a focal consolidation or pleural effusion. LUNG NODULES: There are scattered pulmonary nodules noted. There is an elongated pulmonary nodule in the anterior right upper lobe measuring 0.5 cm (axial image 92). There is a subtle 0.3 cm pulmonary nodule in the posterolateral right upper lobe (axial image 100). There is a 0.3 cm pulmonary nodule in the lateral right upper lobe (axial image 83). There is a 0.4 cm pulmonary nodule in the lateral left upper lobe (axial image 117). There is a 0.4 cm pulmonary nodule in the lateral left upper lobe (axial image 119). There is a 0.4 cm pulmonary nodule in the lateral left upper lobe (axial image 123). CORONARY ARTERY CALCIFICATION: Present. OTHER: There is mild cardiomegaly. There is no definite evidence of pericardial effusion. There are mild atherosclerotic changes of the thoracic aorta and coronary vessels. There is no definite unenhanced CT evidence of mediastinal, hilar, or axillary lymphadenopathy. There are scattered prominent subcentimeter mediastinal lymph nodes noted with the largest measuring 0.9 cm in the subcarinal region (axial image 110). There is a small hiatal hernia. The visualized portions of the bilateral adrenal glands are grossly unremarkable. There is minimal levoscoliotic curvature of the spine with degenerative changes. THIS IS AN ELECTRONICALLY VERIFIED FINAL REPORT 06/11/2024 8:05 AM - Electronically signed by Jorge Melo D.O. PS: PS Report ID: [id number] Reading Location: [id number] Procedure Note Jorge Melo DO - 06/11/2024 EXAM DESCRIPTION: CT CHEST SCREENING WO REASON FOR STUDY: Screening CT of the chest in a current smoker with a 30 pack year smoking history. Additional history: History of COPD and emphysema. History of exposure to diesel fumes.. TECHNIQUE: Low dose CT scan of the chest was performed without intravenous contrast using helical scanning technique. The exam extends from the lung apices through the lung bases. Automatic exposure control was used as a dose optimization technique. NOTE: This study was performed for the specific purposes of lung cancer screening and is not an alternative to diagnostic chest CT. RADIATION DOSE: CT dose index volume (CTDIvol) = 3.62 mGy COMPARISON: None FINDINGS: SMOKING RELATED LUNG DISEASE: There are mild emphysematous changes of lungs with scattered mild subsegmental atelectasis and scarring. There is no definite evidence of a pneumothorax. The central airways are grossly patent. There is scattered mild bronchial wall thickening, which is likely related to mild chronic bronchitis/bronchiolitis. There is no definite evidence of a focal consolidation or pleural effusion. LUNG NODULES: There are scattered pulmonary nodules noted. There is an elongated pulmonary nodule in the anterior right upper lobe measuring 0.5 cm (axial image 92). There is a subtle 0.3 cm pulmonary nodule in the posterolateral right upper lobe (axial image 100). There is a 0.3 cm pulmonary nodule in the lateral right upper lobe (axial image 83). There is a 0.4 cm pulmonary nodule in the lateral left upper lobe (axial image 117). There is a 0.4 cm pulmonary nodule in the lateral left upper lobe (axial image 119). There is a 0.4 cm pulmonary nodule in the lateral left upper lobe (axial image 123). CORONARY ARTERY CALCIFICATION: Present. OTHER: There is mild cardiomegaly. There is no definite evidence of pericardial effusion. There are mild atherosclerotic changes of the thoracic aorta and coronary vessels. There is no definite unenhanced CT evidence of mediastinal, hilar, or axillary lymphadenopathy. There are scattered prominent subcentimeter mediastinal lymph nodes noted with the largest measuring 0.9 cm in the subcarinal region (axial image 110). There is a small hiatal hernia. The visualized portions of the bilateral adrenal glands are grossly unremarkable. There is minimal levoscoliotic curvature of the spine with degenerative changes. THIS IS AN ELECTRONICALLY VERIFIED FINAL REPORT 06/11/2024 8:05 AM - Electronically signed by Jorge Melo D.O. PS: HILARIO Report ID: [id number] Reading Location: [place] [id number] IMPRESSION: Scattered pulmonary nodules with the largest measuring up to 0.5 cm. Mild emphysematous changes of lungs with scattered mild subsegmental atelectasis and scarring. Scattered mild bronchial wall thickening, which is likely related to mild chronic bronchitis/bronchiolitis. Lung-RADS category 2: Benign appearance or behavior. Recommendation: Low dose Screening CT of chest in 12 months. Benny Mijares MD IMG CT ORDERABLES Final R esult * PSA SCREEN (09/23/2023 11:14 AM CDT) PSA SCREEN, TOTAL 2.44 <4.00 ng/mL 09/23/2023 1:11 PM CDT [facility] Blood Venipuncture / Unknown 09/23/2023 11:14 AM CDT 09/23/2023 12:18 PM CDT Narrative [facility] - 09/23/2023 1:11 PM CDT The Legal [employer] Total PSA assay is a Chemiluminescent Microparticle Immunoassay (CMIA) for the quantitative determination of total PSA (both free PSA and PSA complexed to [id number]) in human serum. Total PSA values obtained with different assay methods, including Alonso PSA assays, cannot be used interchangeably. Shravna Og MD CHEMISTRY ORDERABLES Final Result [facility] [address] [place] [address] * STOOL, OCCULT BLOOD, DIAGNOSTIC (09/21/2022 3:49 PM CDT) OCCULT BLOOD DIAG Negative Negative 09/21/2022 4:21 PM CDT [facility] Stool STOOL SPECIMEN / Unknown Non-Phlebotomy Collection / Unknown 09/21/2022 3:49 PM CDT 09/21/2022 4:21 PM CDT Tameka Zamarripa APRN, DRAFTER MARINE BODY FLUIDS & STOOLS ORDERABLES Final Result [facility] [address] [place] [address] from Last 3 Months or Most Recently Relevant to Health Maintenance Insurance MEDICARE C [employer] [facility] Advance Directives * Full Code (Latest Code Status on File) Date Activated Date Inactivated Comments 09/21/2022 9:58 PM 09/22/2022 7:14 AM CPR-Full Devon atment: FULL ARREST: Attempt Resuscitation/CPR wit intubation and mechanical ventilation. PRE-ARREST: Use entire range of life support measures to stabilize the patient. Care Teams Forging Machine Operator Relationship Specialty Start Date End Date Benny Mijares MD [address] [address] PCP - General Family Medicine 04/19/24 Jacque Ryder APRN, DRAFTER MARINE [address] [place] [address] Nurse Practitioner Advanced Practice Nurse 09/23/22 Maeve Lopez APRN, DRAFTER MARINE [address] [place] [phone] Nurse Practitioner Cardiology 09/06/24 Blaine Ashby MD [address] [place] [phone] Consulting Physician Pulmonary Disease 10/16/24 Chau Rush MD #[address] [address] Consulting Physician Colon and Rectal Surgery 10/16/24 Francesco Junior MD 2 [facility] [address] [address] Consulting Physician Cardiology 01/03/25
--- OUTSIDE RECORDS SUMMARY | 2025-01-08 18:56 | XMS_ITS | Encounter Summary ---
Author Organization [facility] Address [address] [facility] [facility] [place] [address] Phone Care Team Providers Care Research Geologist Name Role Phone Shravan Og MD Primary Care Provider [phone] Godfrey Villarreal MD Unavailable Jacque Mathew APRN, WHEEL BLOCKER Unavailable Benny Mijares MD Primary Care Provider [phone] Maeve Lopez APRN, WHEEL BLOCKER Unavailable Blaine Ashby MD Unavailable Chau Rush MD Unavailable Francesco Junior MD Unavailable [phone] Reason for Visit * Reason Comments Medication Refill Encounter Details Date Type Department Care Team (Late st Contact Info) Description 09/29/2023 Refill [facility] Medical Group - Internal Medicine - [place] [address] [place] [address] Shravan Og MD [address] [place] [address] Medication Refill Social History Tobacco Use Types Packs/Day Years Used Date Smoking Tobacco: Every Day Cigarettes 0.5 20 Passive Smoke Exposure: Current Smokeless Tobacco: Former Comments:only used chew for about a year, quit chewing about 25 years ago Alcohol Use Standard Drinks/Week Comments Yes 6 (1 standard drink = 0.6 oz pur e alcohol) ONCE EVERY THREE WEEKS [facility] Utilities Answer Date Recorded In the past 12 months has e electric, gas, oil, or water company threatened to shut off services in your [...] 08/29/2023 How often do you attend chur ch or buddhism services? Never 08/29/2023 Do you belong to any clubs o r organizations such as zoroastrianism groups, unions, fraternal or athletic groups, or [...] Recorded Total Score - Questions 1-9 0 06/2023 [facility] of Occupat ional Health - Occupational Stress Questionnaire Answer Date Recorded [...] place to sleep or slept in a detention (including now)? No 08/29/2023 Sexually Active Control Partners Comments Not Currently Sex and Gender Information Value Date Recorded Sex Assigned at Male 01/10/2023 2:18 PM CDT Legal Sex Male 9:45 PM CDT Gender Identity Male 01/10/2023 2:18 PM CDT Sexual Orientation Not on file documented as of this encounter Miscellaneous Notes * Telephone Encounter - Nadia Sotelo RN - 09/29/2023 2:42 PM CDT Medication(s) refilled and signed per [facility] Chronic Medication Refill Standing Order for Pediatricand Adult Patients. Requested Prescriptions Pending Prescriptions Disp Refills atenolol (TENORMIN) 50 MG Tablet [Pharmacy Med Name: ATENOLOL 50MG TABLETS] 180 Tablet 1 Sig: TAKE 1 TABLET BY MOUTH TWICE DAILY Atenolol Protocol Passed - 09/29/2023 2:32 PM Passed - BP on record in the past year Clinician-entered: BP Readings from Last 3 Encounters: 08/29/23 124/72 05/24/23 130/78 03/14/23 122/70 Patient-entered: No data recorded Passed - Visit with relevant provider in past 12 months or upcoming 90 days Recent Visits Date Type Provider Dept 08/29/23 Office Visit Shravan Og MD [facility] [place] 05/24/23 Office Visit Shravan Og MD [facility] [place] 03/14/23 Office Visit Shravan Og MD [facility] [place] 11/07/22 Office Visit Shravan Og MD [facility] [place] Showing recent visits within past 365 days and meeting all other requirements Future Appointments Date Type Provider Dept 11/15/23 Appointment Shravan Og MD [facility] [place] Showing future appointments within next 90 days and meeting all other requirements documented in this encounter Plan of Treatment Upcoming Encounters Date Type Department Care Team (Late st Contact Info) Description 04/08/2025 2:00 PM STAFF COUNSELOR Office Visit [facility] - Cardiology [facility] [address] [place] [address] Francesco Junior MD 2 [facility] [address] [place] [address] 05/08/2025 11:00 AM STAFF COUNSELOR Office Visit [facility] - Family Medicine - [place] [address] [place] [address] Benny Mijares MD #[address] [address] documented as of this encounter Visit Diagnoses Not on filedocumented in this encounter Additional Health Concerns Infection Onset Date Last Indicated Resolved Time COVID - 19 10/17/2024 10/17/2024 10/17/2024 11:5 2 AM CDT COVID - 19 Confirmed 10/17/2024 10/24/2024 025 11:00 PM CDT COVID - 19 10/24/2024 10/24/2024 10/24/2024 2:08 PM CDT Assessment Noted Time PHQ-9 Depression Total Score: 0 08/29/19 10:50 AM CDT documented as of this encounter Care Teams Research Geologist Relationship Specialty Start Date End Date Shravan Og MD PCP - General Internal Medicine 05/27/20 02/12/24 Benny Mijares MD #[address] [address] PCP - General Family Medicine 04/19/24 Godfrey Villarreal MD Consulting Physician Cardiovascular Disease - Cardiology 11/15/22 05/07/24 Jacque Ryder APRN, WHEEL BLOCKER [address] [place] [address] Nurse Practitioner Advanced Practice Nurse 09/23/22 Maeve Lopez APRN, WHEEL BLOCKER [address] [place] [address] Nurse Practitioner Cardiology 09/06/24 Blaine Ashby MD #2 [place] [address] Consulting Physician Pulmonary Disease 10/16/24 Chau Rush MD #[address] [address] Consulting Physician Colon and Rectal Surgery 10/16/24 Francesco Junior MD [address] [facility] [place]. [address] [place] [address] Consulting Physician Cardiology 01/03/25 documented as of this encounter
--- OUTSIDE RECORDS SUMMARY | 2025-01-08 18:56 | XMS_ITS | Encounter Summary ---
Author Organization [facility] Address [address] [facility] [place] [address] Phone Care Team Providers Care Insurance Underwriting Assistant Name Role Phone Jacque Ryder NIEVES, SHIPPING PACKER Unavailable Benny Mijares MD Primary Care Provider [phone] Maeve Lopez APRN, SHIPPING PACKER Unavailable Blaine Ashby MD Unavailable Chau Rush MD Unavailable Francesco Junior MD Unavailable [phone] Reason for Visit * Reason Comments Medication Refill Encounter Details Date Type Department Care Team (Late st Contact Info) Description 06/13/2024 Refill [facility] Medical Group - Internal Medicine - [place] [address] [place] [address] Shravan Og MD [address] [place] [address] Medication Refill Social History Tobacco Use Types Packs/Day Years Used Date Smoking Tobacco: Every Day Cigarettes 0.5 20 Passive Smoke Exposure: Current Smokeless Tobacco: Former Comments:only used chew for about a year, quit chewing about 25 years ago Alcohol Use Standard Drinks/Week Comments Yes 6 (1 standard drink = 0.6 oz pur e alcohol) ONCE EVERY THREE WEEKS [facility] Utilities Answer Date Recorded In the [...] often do you attend chur ch or protestant services? Never 08/29/2023 Do you belong to any clubs o r organizations such as buddhism groups, unions, fraternal or athletic groups, or [...] Recorded Total Score - Questions 1-9 0 04/28 [facility] of Occupat ional Health - Occupational Stress [...] place to sleep or slept in a mcc (including now)? No 08/29/2023 Sexually Active Control Partners Comments Not Currently Sex and Gender Information Value Date Recorded Sex Assigned at Male 01/10/2023 2:18 PM CDT Legal Sex Male 9:45 PM CDT Gender Identity Male 01/10/2023 2:18 PM CDT Sexual Orientation Not on file documented as of this encounter Plan of Treatment Upcoming Encounters Date Type Department Care Team (Late st Contact Info) Description 04/08/2025 2:00 PM FLOW MANAGER Office Visit [facility] Medical Group - Cardiology - [place] [address] [place] [address] Francesco Junior MD [facility] [address] [place] [address] 05/08/2025 11:00 AM FLOW MANAGER Office Visit [facility] Medical Group - Family Medicine [facility] [address] [place] [address] Benny Mijares MD [address] [facility] [address] [place] [address] documented as of this encounter Visit Diagnoses Not on filedocumented in this encounter Additional Health Concerns Infection Onset Date Last Indicated Resolved Time COVID - 19 10/17/2024 10/17/2024 10/17/2024 11:5 2 AM CDT COVID - 19 Confirmed 10/17/2024 10/24/2024 025 11:00 PM CDT COVID - 19 10/24/2024 10/24/2024 10/24/2024 2:08 PM CDT Assessment Noted Time PHQ-9 Depression Total Score: 0 05/13/20 1:23 PM FLOW MANAGER documented as of this encounter Care Teams Insurance Underwriting Assistant Relationship Specialty Start Date End Date Benny Mijares MD #[address] [address] PCP - General Family Medicine 04/19/24 Jacque Ryder APRN, SHIPPING PACKER [address] [place] [address] Nurse Practitioner Advanced Practice Nurse 09/23/22 Maeve Lopez APRN, SHIPPING PACKER [address] [place] [address] Nurse Practitioner Cardiology 09/06/24 Blaine Ashby MD #2 [place] [address] Consulting Physician Pulmonary Disease 10/16/24 Chau Rush MD #[address] [address] Consulting Physician Colon and Rectal Surgery 10/16/24 Francesco Junior MD [address] [facility]. [address] [place] [address] Consulting Physician Cardiology 01/03/25 documented as of this encounter
--- OUTSIDE RECORDS SUMMARY | 2025-01-08 18:56 | XMS_ITS | Clinical Summary ---
Author Organization [facility] Address [address] [place] [address] Care Team Providers Care Chief Procurement Officer Name Role Phone Mann Mijares MD Primary Care Provider [phone] Allergies No known active allergies Medications methocarbamol (ROBAXIN-750) 750 mg tablet take 1 tablet by oral route every 4 hours 0 0 6 Active HYDROcodone-francy taminophen (VICODIN) 5-300 mg per tablet take 1 tablet by oral route every 4 - 6 hours as needed for pain 0 0 6 Active atorvastatin (LIPITOR) 10 mg tablet take 1 tablet by oral route every day 0 0 6 Active gabapentin (NEURONTIN) 800 mg tablet take 1 tablet by oral route 3 times every day 0 0 6 Active citalopram (CeleXA) 20 mg tablet take 1 tablet by oral route every day 0 0 6 Active atenolol (TENORMIN) 25 mg tablet take 1 tablet by oral route every day 0 0 6 Active omeprazole (PriLOSEC) 20 mg capsule take 1 capsule by oral route every day before a meal 0 0 6 Active diazePAM (VALIUM) 5 mg tablet take 1 tablet by oral route 2 times every day 0 0 6 Active methylPREDNISol one (MEDROL DOSEPACK) 4 mg tablet take as directed by Oral route 1 0 6 Active cyclobenzaprine (FLEXERIL) 10 mg tablet take 1 tablet by oral route 3 times every day prn 30 1 6 Active mupirocin (BACTROBAN) 2 % ointment Apply topically 3 (three) times a day 22 g 9 Active ibuprofen (ADVIL,MOTRIN) 800 mg tablet Take 1 tablet (800 mg total) by mouth 3 (three) times a day 21 tablet 9 Active oxyCODONE-aceta minophen (PERCOCET) 10-325 mg per tabletIndicatio ns:Pain Take one tablet every 12 hours as needed for pain. 10 tablet 9 Active Active Problems Problem Noted Date Diagnosed Date Cellulitis of face 12/01/2018 History of spinal surgery 04/15/2016 Overview (09/01/2016): H/O Spinal surgery Cervical spondylosis with radiculopathy 03/03/20 16 Overview (09/01/2016): Cervical spondylosis with radiculopathy Chronic infection of sinus 01/19/2012 Encounters Date Type Department Care Team Description 10/18/2024 Documentation [facility] Surgery [address] [facility] Advanced Medicine 8th [place] [address] [place] [address] Lucy Metcalf RMA 10/16/2024 Telephone [facility] Surgery [address] [facility] 8th [place] [address] [place] [address] Lucy Metcalf RMA from Last 3 Months Immunizations Immunization Administration Dates Next Due Influenza, Trivalent, IM (MDV) 01/27/2016 Surgical History Surgery Date Site/Laterality Comments CERVICAL FUSION SINUS SURGERY Medical History Medical History Date Comments Hypertension Neuropathy COPD (chronic obstructive pulmonary disease) Degenerative lumbar disc Social History Tobacco Use Types Packs/Day Years Used Date Smoking Tobacco: Every Day Smokeless Tobacco: Never Sex and Gender Information Value Date Recorded Sex Assigned at Not on file Legal Sex Male 4:17 PM INFECTION CONTROL RN Gender Identity Not on file Sexual Orientation Not on file Obstetrics History Last Filed Vital Signs Vital Sign Reading Time Taken Comments Blood Pressure 140/90 01/30/2019 9:36 AM CDT Pulse 84 01/30/2019 9:36 AM CDT Temperature 37 C (98.6 F) 01/27/2019 10:03 AM CDT Respiratory Rate 15 01/27/2019 10:57 AM CDT Oxygen Saturation 95% 01/27/2019 10:57 AM CDT Inhaled Oxygen Concentration - - Weight 94.8 kg (209 lb) 01/30/2019 9:36 AM CDT Height 177.8 cm (5' 10) 01/30/2019 9:36 AM CDT Body Mass Index 29.99 01/30/2019 9:36 AM CDT Plan of Treatment Not on file Insurance [facility] [place] [facility] [place] [facility] [facility] [place] Care Teams Chief Procurement Officer Relationship Specialty Start Date End Date Mann Mijares MD [address] [place] [address] PCP - General 03/03/16
--- OUTSIDE RECORDS SUMMARY | 2025-01-08 18:56 | XMS_ITS | Encounter Summary ---
Author Organization [facility] Address [address] [facility] [place] [address] Phone Care Team Providers Care Accredited Pharmacy Technician Name Role Phone Jacque Ryder NIEVES, YEAST DISTILLER Unavailable Benny Mijares MD Primary Care Provider [phone] Maeve Lopez APRN, YEAST DISTILLER Unavailable Blaine Ashby MD Unavailable Chau Rush MD Unavailable Francesco Junior MD Unavailable Reason for Visit * Reason Comments Medication Refill Encounter Details Date Type Department Care Team (Late st Contact Info) Description 07/30/2024 Refill [facility] Medical Group - Internal Medicine - [place] [address] [place] [address] Shravan Og MD [address] [place] [address] Medication Refill Social History Tobacco Use Types Packs/Day Years Used Date Smoking Tobacco: Every Day Cigarettes 0.5 20 Passive Smoke Exposure: Current Smokeless Tobacco: Former Comments:only used chew for about a year, quit chewing about 25 years ago Alcohol Use Standard Drinks/Week Comments Yes 6 (1 standard drink = 0.6 oz pur e alcohol) ONCE EVERY THREE WEEKS [facility] Utilities Answer Date Recorded In the past [...] often do you attend chur ch or uatsdin services? Never 08/29/2023 Do you belong to any clubs o r organizations such as quaker groups, unions, fraternal or athletic groups, or [...] Total Score - Questions 1-9 0 04/28 [facility] of Occupat ional Health - Occupational Stress [...] place to sleep or slept in a prison (including now)? No 08/29/2023 Sexually Active Control [...] st Contact Info) Description 04/08/2025 2:00 PM ATOMIZER ASSEMBLER Office Visit [facility] Medical Group - Cardiology - [place] [address] [place] [address] Francesco Junior MD [address] [facility] [address] [place] [address] 05/08/2025 11:00 AM ATOMIZER ASSEMBLER Office Visit [facility] Medical Group - Family Medicine [facility] #[address] [place] [address] Benny Mijares MD [address] [facility] [address] [place] [address] documented as of this encounter Visit Diagnoses Not on filedocumented in this encounter Additional Health Concerns Infection Onset Date Last Indicated Resolved Time COVID - 19 10/17/2024 10/17/2024 10/17/2024 11:5 2 AM CDT COVID - 19 Confirmed 10/17/2024 10/24/2024 025 11:00 PM CDT COVID - 19 10/24/2024 10/24/2024 10/24/2024 2:08 PM CDT Assessment Noted Time PHQ-9 Depression Total Score: 0 05/13/20 1:23 PM ATOMIZER ASSEMBLER documented as of this encounter Care Teams Accredited Pharmacy Technician Relationship Specialty Start Date End Date Benny Mijares MD #[address] [address] PCP - General Family Medicine 04/19/24 Jacque Ryder APRN, YEAST DISTILLER [address] [place] [address] Nurse Practitioner Advanced Practice Nurse 09/23/22 Maeve Lopez APRN, YEAST DISTILLER [address] [place] [address] Nurse Practitioner Cardiology 09/06/24 Blaine Ashby MD #2 [place] [address] Consulting Physician Pulmonary Disease 10/16/24 Chau Rush MD #[address] [address] Consulting Physician Colon and Rectal Surgery 10/16/24 Francesco Junior MD [address] [address]. [address] [place] [address] Consulting Physician Cardiology 01/03/25 documented as of this encounter
--- OUTSIDE RECORDS SUMMARY | 2025-01-08 18:56 | XMS_ITS | Encounter Summary ---
Author Organization [facility] Address [address] [facility] [place] [address] Phone Care Team Providers Care Review Assistant Name Role Phone Godfrey Villarreal MD Unavailable Jacque Mathew APRN, MACHINE PULLER AND LASTER Unavailable Benny Mijares MD Primary Care Provider [phone] Maeve Lopez APRN, MACHINE PULLER AND LASTER Unavailable Blaine Ashby MD Unavailable Chau Rush MD Unavailable Francesco Junior MD Unavailable [phone] Reason for Visit * Reason Comments Medication Refill Encounter Details Date Type Department Care Team (Late st Contact Info) Description 03/29/2024 Refill [facility] Medical Group - Internal Medicine - [place] [address] [facility] [place] [address] Shravan Og MD [address] [place] [address] Medication Refill Social History Tobacco Use Types Packs/Day Years Used Date Smoking Tobacco: Every Day Cigarettes 0.5 20 Passive Smoke Exposure: Current Smokeless Tobacco: Former Comments:only used chew for about a year, quit chewing about 25 years ago Alcohol Use Standard Drinks/Week Comments Yes 6 (1 standard drink = 0.6 oz pur e alcohol) ONCE EVERY THREE WEEKS [facility] Utilities Answer Date Recorded In the [...] often do you attend chur ch or orthodox services? Never 08/29/2023 Do you belong to any clubs o r organizations such as jew groups, unions, fraternal or athletic groups, or [...] Recorded Total Score - Questions 1-9 0 12/28 [facility] [place] of Occupat ional Health - Occupational Stress [...] place to sleep or slept in a halfway (including now)? No 08/29/2023 Sexually Active Control [...] st Contact Info) Description 04/08/2025 2:00 PM TREAD BOOKER Office Visit [facility] Medical Group - Cardiology [facility] [address] [place] [address] [address] [facility]. [address] [place] [address] 05/08/2025 11:00 AM TREAD BOOKER Office Visit [facility] Medical Group - Family Medicine - [place] [address] [place] [address] Benny Mijares MD #[address] [address] documented as of this encounter Visit Diagnoses Not on filedocumented in this encounter Additional Health Concerns Infection Onset Date Last Indicated Resolved Time COVID - 19 10/17/2024 10/17/2024 10/17/2024 11:5 2 AM CDT COVID - 19 Confirmed 10/17/2024 10/24/2024 025 11:00 PM CDT COVID - 19 10/24/2024 10/24/2024 10/24/2024 2:08 PM CDT Assessment Noted Time PHQ-9 Depression Total Score: 0 01/16/20 3:36 PM CDT documented as of this encounter Care Teams Review Assistant Relationship Specialty Start Date End Date Benny Mijares MD #[address] [address] PCP - General Family Medicine 04/19/24 Godfrey Villarreal MD Consulting Physician Cardiovascular Disease - Cardiology 11/15/22 05/07/24 Jacque Ryder APRN, MACHINE PULLER AND LASTER [address] [place] [address] Nurse Practitioner Advanced Practice Nurse 09/23/22 Maeve Lopez APRN, MACHINE PULLER AND LASTER [address] [place] [address] Nurse Practitioner Cardiology 09/06/24 Blaine Ashby MD #2 [place] [address] Consulting Physician Pulmonary Disease 10/16/24 Chau Rush MD [address] [place] [address] Consulting Physician Colon and Rectal Surgery 10/16/24 Francesco Junior MD [address] [address] Consulting Physician Cardiology 01/03/25 documented as of this encounter
--- OUTSIDE RECORDS SUMMARY | 2025-01-08 18:56 | XMS_ITS | Encounter Summary ---
Author Organization [facility] Address [address] [facility] [place] [address] Phone Care Team Providers Care Gunner'S Mate Name Role Phone Shravan Og MD Primary Care Provider [phone] Godfrey Villarreal MD Unavailable Jacque Mathew APRN, SURVEYOR HELPER ROD Unavailable Benny Mijares MD Primary Care Provider [phone] Maeve Lopez APRN, SURVEYOR HELPER ROD Unavailable Blaine Ashby MD Unavailable Chau Rush MD Unavailable Francesco Junior MD Unavailable [phone] Reason for Visit * Reason Comments Medication Refill Encounter Details Date Type Department Care Team (Late st Contact Info) Description 11/13/2023 Refill [facility] - Internal Medicine - [place] [address] [place] [address] Shravan Og MD [address] [place] [address] Medication Refill Social History Tobacco Use Types Packs/Day Years Used Date Smoking Tobacco: Every Day Cigarettes 0.5 20 Passive Smoke Exposure: Current Smokeless Tobacco: Former Comments:only used chew for about a year, quit chewing about 25 years ago Alcohol Use Standard Drinks/Week Comments Yes 6 (1 standard drink = 0.6 oz pur e alcohol) ONCE EVERY THREE WEEKS [facility] Utilities Answer Date Recorded In [...] often do you attend chur ch or jehovah's witness services? Never 08/29/2023 Do you belong to any clubs o r organizations such as yarsanism groups, unions, fraternal or athletic groups, or [...] Total Score - Questions 1-9 0 06/2023 [facility] of Occupat ional Health - Occupational Stress [...] Telephone Encounter - Nadia Sotelo RN - 11/13/2023 12:46 PM CDT Medication(s) refilled and signed per [facility] Chronic Medication Refill Standing Order for Pediatricand Adult Patients. Requested Prescriptions Pending Prescriptions Disp Refills atorvastatin (LIPITOR) 40 MG Tablet [Pharmacy Med Name: ATORVASTATIN 40MG TABLETS] 90 Tablet 1 Sig: TAKE 1 TABLET BY MOUTH EVERY NIGHT Hmg CoA Reductase Inhibitors Protocol Passed - 11/13/2023 11:52 AM Passed - Visit with relevant provider in past 12 months or upcoming 90 days Recent Visits Date Type Provider Dept 08/29/23 Office Visit Shravan Og MD [facility] 05/24/23 Office Visit Shravan Og MD [facility] 03/14/23 Office Visit Shravan Og MD [facility] Showing recent visits within past 365 days and meeting all other requirements Future Appointments Date Type Provider Dept 11/15/23 Appointment Shravan Og MD [facility] Showing future appointments within next 90 days and meeting all other requirements Passed - Lipid panel in past 12 months LDL Date Value Ref Range Status 09/23/2023 72 <130 mg/dL Final HDL CHOLESTEROL Date Value Ref Range Status 09/23/2023 32 (L) >40 mg/dL Final CHOLESTEROL Date Value Ref Range Status 09/23/2023 129 <200 mg/dL Final TRIGLYCERIDES Date Value Ref Range Status 09/23/2023 126 <150 mg/dL Final VLDL Date Value Ref Range Status 09/23/2023 25 10 - 50 mg/dL Final CHOL/HDL RATIO Date Value Ref Range Status 09/23/2023 4.0 0.0 - 4.4 Final NON-HDL CHOLESTEROL Date Value Ref Range Status 09/23/2023 97 <130 mg/dL Final Passed - CMP in past 12 months SODIUM Date Value Ref Range Status 09/23/2023 140 136 - 145 mmol/L Final POTASSIUM Date Value Ref Range Status 09/23/2023 4.5 3.5 - 5.1 mmol/L Final CHLORIDE Date Value Ref Range Status 09/23/2023 102 98 - 107 mmol/L Final CO2, VENOUS Date Value Ref Range Status 09/23/2023 27 22 - 30 mmol/L Final ANION GAP Date Value Ref Range Status 09/23/2023 15.5 <18.0 mmol/L Final GLUCOSE Date Value Ref Range Status 09/23/2023 91 70 - 99 mg/dL Final BUN Date Value Ref Range Status 09/23/2023 7 (L) 8 - 26 mg/dL Final CREATININE, BLOOD Date Value Ref Range Status 09/23/2023 0.88 0.70 - 1.30 mg/dL Final BUN/CREATININE RATIO Date Value Ref Range Status 09/23/2023 8 (L) 12 - 20 ratio Final TOTAL PROTEIN Date Value Ref Range Status 09/23/2023 7.4 6.3 - 8.2 g/dL Final ALBUMIN Date Value Ref Range Status 09/23/2023 4.0 3.5 - 5.0 g/dL Final A/G RATIO Date Value Ref Range Status 09/23/2023 1.2 1.0 - 2.2 Final CALCIUM Date Value Ref Range Status 09/23/2023 9.3 8.7 - 10.5 mg/dL Final T BILI Date Value Ref Range Status 09/23/2023 0.5 0.2 - 1.2 mg/dL Final SGOT (AST) Date Value Ref Range Status 09/23/2023 18 5 - 34 U/L Final SGPT (ALT) Date Value Ref Range Status 09/23/2023 13 0 - 55 U/L Final ALKALINE PHOSPHATASE Date Value Ref Range Status 09/23/2023 105 40 - 150 U/L Final GFR, EST. NONAFRICAN Date Value Ref Range Status 09/23/2023 >60 >=60 Final GFR, EST. Date Value Ref Range Status 09/23/2023 >60 >=60 Final GFR, ESTIMATED Date Value Ref Range Status 09/23/2023 >60 >=60 Final Comment: Creatinine Clearance is the preferred criteria for selecting drug dose adjustments in renally impaired patients. The GFR is provided as additional pertinent clinical information. GFR is reported in mL/min/1.73 sq m. Calculation based on the Chronic Kidney Disease Epidemiology Collaboration (CKD- EPI) equation refitwithout adjustment for race. IS THE PATIENT REQUIRED TO BE FASTING? Date Value Ref Range Status 09/23/2023 No Final documented in this encounter Plan of Treatment Upcoming Encounters Date Type Department Care Team (Late st Contact Info) Description 04/08/2025 2:00 PM CORPORATE DEVELOPMENT OFFICER Office Visit [facility] - Cardiology - [place] [address] [place] [address] Francesco Junior MD [address] [place] [place] [address] 05/08/2025 11:00 AM CORPORATE DEVELOPMENT OFFICER Office Visit [facility] Family [facility] [address] [place] [address] Benny Mijares MD [address] [address] documented as of this encounter Visit Diagnoses [...] documented as of this encounter Care Teams Gunner'S Mate Relationship Specialty Start Date End Date Shravan Og MD PCP - General Internal Medicine 05/27/20 02/12/24 Benny Mijares MD [address] [address] PCP - General Family Medicine 04/19/24 Godfrey Villarreal MD Consulting Physician Cardiovascular Disease - Cardiology 11/15/22 05/07/24 Jacque Ryder APRN, SURVEYOR HELPER ROD [address] [place] [address] Nurse Practitioner Advanced Practice Nurse 09/23/22 Maeve Lopez APRN, SURVEYOR HELPER ROD [address] [place] [address] Nurse Practitioner Cardiology 09/06/24 Blaine Ashby MD [address] [place] [address] Consulting Physician Pulmonary Disease 10/16/24 Chau Rush MD [address] [address] Consulting Physician Colon and Rectal Surgery 10/16/24 Francesco Junior MD [address] [address] Consulting Physician Cardiology 01/03/25 documented as of this encounter
--- OUTSIDE RECORDS SUMMARY | 2025-01-08 18:56 | XMS_ITS | Encounter Summary ---
Author Organization [facility] Address [address] [place] [address] Phone Care Team Providers Care Pump And Still Operator Name Role Phone Jacque Ryder NIEVES, BUDGET ASSISTANT Unavailable Benny Mijares MD Primary Care Provider [phone] Maeve Lopez APRN, BUDGET ASSISTANT Unavailable Blaine Ashby MD Unavailable Chau Rush MD Unavailable Francesco Junior MD Unavailable [phone] Reason for Visit * Reason Comments Medication Refill Encounter Details Date Type Department Care Team (Late st Contact Info) Description 08/13/2024 Refill [facility] - Internal Medicine - [place] [address] [place] [address] Shravan Og MD [address] [place] [address] Medication Refill Social History Tobacco Use Types Packs/Day Years Used Date Smoking Tobacco: Every Day Cigarettes 0.5 20 Passive Smoke Exposure: Current Smokeless Tobacco: Former Comments:only used chew for about a year, quit chewing about 25 years ago Alcohol Use Standard Drinks/Week Comments Yes 6 (1 standard drink = 0.6 oz pur e alcohol) ONCE EVERY THREE WEEKS [facility] Utilities Answer Date Recorded In the [...] any clubs o r organizations such as rastafari groups, unions, fraternal or athletic groups, or [...] Total Score - Questions 1-9 0 04/28 [facility] of Occupat ional Health - Occupational [...] place to sleep or slept in a retirement (including now)? No 08/29/2023 Sexually Active Control [...] st Contact Info) Description 04/08/2025 2:00 PM AUDIOMETRIC TECHNICIAN Office Visit [facility] - Cardiology - [place] [address] [place] [address] Francesco Junior MD [address] [facility] [address] [place] [address] 05/08/2025 11:00 AM AUDIOMETRIC TECHNICIAN Office Visit [facility] - Family Medicine [facility] [address] [place] [address] Benny Mijares MD [address] [facility] [address] [place] [address] documented as of this encounter Visit Diagnoses Not on filedocumented in this encounter Additional Health Concerns Infection Onset Date Last Indicated Resolved Time COVID - 19 10/17/2024 10/17/2024 10/17/2024 11:5 2 AM CDT COVID - 19 Confirmed 10/17/2024 10/24/2024 025 11:00 PM CDT COVID - 19 10/24/2024 10/24/2024 10/24/2024 2:08 PM CDT Assessment Noted Time PHQ-9 Depression Total Score: 0 05/13/20 1:23 PM AUDIOMETRIC TECHNICIAN documented as of this encounter Care Teams Pump And Still Operator Relationship Specialty Start Date End Date Benny Mijares MD [address] [address] PCP - General Family Medicine 04/19/24 Jacque Ryder APRN, BUDGET ASSISTANT [address] [place] [address] Nurse Practitioner Advanced Practice Nurse 09/23/22 Maeve Lopez APRN, BUDGET ASSISTANT [address] [place] [address] Nurse Practitioner Cardiology 09/06/24 Blaine Ashby MD [address] [place] [phone] Consulting Physician Pulmonary Disease 10/16/24 Chau Rush MD [address] [address] Consulting Physician Colon and Rectal Surgery 10/16/24 Francesco Junior MD [address] [facility]. [address] [place] [address] Consulting Physician Cardiology 01/03/25 documented as of this encounter
[2025-01-08 19:05] VITALS: BP 157/73; PULSE 68; RESP 18; TEMP 36.8; O2SAT 98
== END 2025-01-08 19:28 | disposition home or self-care (01) ==
PROVIDERS: Emergency Provider Nurse Practitioner Family; PCP Family Medicine
DX: S80.261A Insect bite (nonvenomous), right knee, initial encounter (principal); S80.262A Insect bite (nonvenomous), left knee, initial encounter; W57.XXXA Bitten or stung by nonvenomous insect and other nonvenomous arthropods, initial encounter; I10 Essential (primary) hypertension; J44.9 Chronic obstructive pulmonary disease, unspecified; E78.00 Pure hypercholesterolemia, unspecified; K21.9 Gastro-esophageal reflux disease without esophagitis
CPT/HCPCS: 99213; G0463

== ENCOUNTER 2025-05-18 13:52 | Emergency (ER) | payer OTHER, SELFPAY ==
--- NOTE | ~2025-05-18 | XR_ITS ---
EXAMINATION: XR chest 2V DATE: 05/18/2025 14:41 INDICATION: Cough. TECHNIQUE: Frontal and lateral views of the chest were obtained. COMPARISON: None. FINDINGS: Borderline size heart. Lungs are clear of acute processes. Irma and mediastinum are normal. IMPRESSION: 1. No acute pulmonary findings. Reviewed, dictated and finalized at location T. /DC REWINDER
[2025-05-18 13:54] VITALS: BP 134/7; PULSE 87; RESP 24; TEMP 37.3; O2SAT 97
--- OUTSIDE RECORDS SUMMARY | 2025-05-18 13:54 | XMS_ITS | Encounter Summary ---
Author Organization [facility] Address [address] [place] [address] Phone Care Team Providers Care Social Sciences Professor Name Role Phone Mann Mijares MD Primary Care Provider [phone] Encounter Details Date Type Department Care Team (Latest Contact Info) Description 09/26/2024 Orders Only [facility] CARDIOLOGY Scanning, Provider Social History Tobacco Use Types Packs/Day Years Used Date Smoking Tobacco: Every Day Smokeless Tobacco: Never Sex and Gender Information Value Date Recorded Sex Assigned at Not on file 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 Gender Identity Not on file Sexual Orientation Not on file documented as of this encounter Plan of Treatment Not on file documented as of this encounter Procedures Procedure Name Priority Date/Time Associated Diagnosis Comments CARDIOLOGY DOCUMENT SCAN 09/26/2024 documented in this encounter Results * Cardiology Document Scan (09/26/2024) Anatomical Region Laterality Modality Other us Provider Scanning CV CARDIAC SERVICES PROCEDURES Final Result documented in this encounter Visit Diagnoses Not on filedocumented in this encounter Care Teams Social Sciences Professor Relationship Specialty Start Date End Date Mann Mijares MD [address] [place] [address] PCP - General 03/03/16 documented as of this encounter
--- OUTSIDE RECORDS SUMMARY | 2025-05-18 13:54 | XMS_ITS | Encounter Summary ---
Author Organization [facility] Address [address] [place] [address] Phone Care Team Providers Care Network Manager Name Role Phone Mann Mijares MD Primary Care Provider [phone] Encounter Details Date Type Department Care Team (Latest Contact Info) Description 10/15/2024 Orders Only [facility] CARDIOLOGY Scanning, Provider Social History Tobacco Use Types Packs/Day Years Used Date Smoking Tobacco: Every Day Smokeless Tobacco: Never Sex and Gender Information Value Date Recorded Sex Assigned at Not on file 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 Gender Identity Not on file Sexual Orientation Not on file documented as of this encounter Plan of Treatment Not on file documented as of this encounter Procedures Procedure Name Priority Date/Time Associated Diagnosis Comments CARDIOLOGY DOCUMENT SCAN 10/15/2024 documented in this encounter Results * Cardiology Document Scan (10/15/2024) Anatomical Region Laterality Modality Other us Provider Scanning CV CARDIAC SERVICES PROCEDURES Final Result documented in this encounter Visit Diagnoses Not on filedocumented in this encounter Care Teams Network Manager Relationship Specialty Start Date End Date Mann Mijares MD [address] [place] [address] PCP - General 03/03/16 documented as of this encounter
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
--- OUTSIDE RECORDS SUMMARY | 2025-05-18 13:54 | XMS_ITS ---
Author Organization Unknown Address [address] [place] [phone] Phone Care Team Providers Care Resident Care Manager Name Role Phone SASHA BRUNNER Attending Unavailable [...] 212 CVX Pneumococcal conjugate PCV20 , polysaccharide WSZ231 conjugate, adjuvant, PF 12/26/2022 Completed 216 CVX Social History Type Status Start Date End Date Code Code Syst em Smoking History Unknown if ever smoked [address] Sex Male Vital Signs Vital Sign Value Unit [place] Value [place] Unit Date/Time Recent/Initial? Code Code System Body Mass Index 32.69 kg/m2 12/26/2024 15:20 Initial 01442 -5 LOINC Systolic Blood Pressure 139 mm[Hg] 12/26/2024 15:20 Initial 8480- 6 LOINC Diastolic Blood Pressure 84 mm[Hg] 12/26/2024 15:20 Initial 8462- 4 LOINC Body Surface Area 2.16 m2 12/26/2024 15:20 Initial 3140- 1 LOINC Height 172.720 0 cm 68.00 in 12/26/2024 15:20 Initial 8302- 2 [facility] O2 Saturation 97 % 2024 15:20 Initial 40624 -5 [facility] Pulse 64.0 /min 12/26/2024 15:20 Initial 8867- 4 [facility] Temperature 36.2 [place] 97.1 F 12/27/19 15:20 Initial 8310- 5 [facility] Weight 97.52 kg 215.00 lbs 12/26/2024 15:20 Initial 18227 -7 [facility] Medications Medication Start Date End Date Route Frequency Dose Code Code System Medication Instructions Home Meds Atenolol 50MG Oral Tablet 07/04/2024 Unknown ORAL TWICE A DAY 50 MILLIGRAMS 028721 RxNorm TAKE 50 MILLIGRAMS ORAL TWICE A DAY Atorvastatin Calcium 40MG Oral Tablet 07/04/2024 Unknown ORAL AT BEDTIME 40 MILLIGRAMS 983161 RxNorm TAKE 40 MILLIGRAMS ORAL AT BEDTIME Citalopram 40MG Oral Tablet 07/04/2024 Unknown ORAL ONCE A DAY 40 MILLIGRAMS 720914 RxNorm TAKE 40 MILLIGRAMS ORAL ONCE A DAY Cyclobenzapri ne HCl 5MG Oral Tablet 07/04/2024 Unknown ORAL NEEDED 3 TIMES A DAY 10 MILLIGRAMS 264869 RxNorm TAKE 10 MILLIGRAMS ORAL NEEDED 3 TIMES A DAY Pantoprazole Sodium 40 MG Oral Tablet, Delayed Release 07/04/2024 Unknown ORAL ONCE A DAY 40 MG 303074 RxNorm TAKE 40 MG ORAL ONCE A DAY amLODIPine Besylate 5MG Oral Tablet 07/04/2024 Unknown ORAL ONCE A DAY 5 MILLIGRAMS 757758 RxNorm TAKE 5 MILLIGRAMS ORAL ONCE A DAY traZODone hydrochloride 50MG Oral Tablet 07/04/2024 Unknown ORAL AT BEDTIME 50 MILLIGRAMS 868604 RxNorm TAKE 50 MILLIGRAMS ORAL AT BEDTIME Albuterol Sulfate 0.09MG/1Actua tion Inhalation Suspension 07/22/2024 Unknown INHALATI ON NEEDED 1 unit(s) 1094472 RxNorm 1 EACH INHALATION NEEDED Aspirin 81MG Oral Tablet, Enteric Coated 09/30/2024 Unknown ORAL ONCE A DAY 81 MILLIGRAMS 758845 RxNorm TAKE 81 MILLIGRAMS ORAL ONCE A DAY Plavix 75MG Oral Tablet 09/30/2024 Unknown ORAL ONCE A DAY 75 MILLIGRAMS 480160 RxNorm TAKE 75 MILLIGRAMS ORAL ONCE A DAY HYDROcodone bitartrate-ac etaminophen 10MG-325MG Oral Tablet 11/27/2024 12/27/19 25 BY MOUTH NEEDED 3 TIMES A DAY 1 TABLET 445616 RxNorm TAKE 1 TABLET BY MOUTH NEEDED 3 TIMES A DAY FOR PAIN HYDROcodone bitartrate-ac etaminophen 10MG-325MG Oral Tablet 12/26/2024 Unknown BY MOUTH NEEDED 3 TIMES A DAY 1 TABLET 926091 RxNorm TAKE 1 TABLET UP TO 2 [...] physician. Reason For Referral No Data Found Procedures Procedure Name Date Status Code Code Syste m INJECTION SINGLE/SUPERVISOR EXTRUSION TRIGGER POINT 3/> MUSCLES 12/26/2024 completed CPT Problems Problem Start Date Resolved Date Status Code Code System GERD WITHOUT ESOPHAGITIS active 103765953 SNOMED-CT LOW BACK PAIN CO-OCCURRENT AND DUE TO BILATERAL SCIATICA active 38783138193001108 SNOM ED-CT NEUROPATHY active 841304080 SNOMED-CT DEGENERATIVE DISC DISEASE active 32533749 SNOMED-CT HERNIATED LUMBAR INTERVERTEBRAL DISC active 051815916 SNOMED-C T HERNIATED CERVICAL DISC active 361854 009 SNOMED-CT CHRONIC PAIN SYNDROME active 54482870 6 SNOMED-CT CHRONIC LOWER BACK PAIN active 923622 009 SNOMED-CT MYALGIA OF AUXILIARY MUSCLES, HEAD AND NECK active 07514584 SNOME D-CT Allergies and Adverse Reactions Allergy Substance Reaction Severity Start Date Concern Status Co de Code System No Known Drug Allergies Active 362717903 SNOMED-CT Plan of Treatment New Patient 07/04/2024 Epidural 07/22/2024 OR Epidural 07/22/2024 Epidural 07/22/2024 OR Epidural 07/22/2024 Encounters Encounter Diagnosis Start Date Code Code Sys tem Myositis, unspecified 12/26/2024 SNOMED -CT Personal Care Team Section Performer Name Performer Role Active Date Inactive Da peter CHRISTIE WATTS PCP - Primary care physician CHRISTIE WATTS PCP - Primary care physician Progress Notes [facility] 12/26/2024 16:03 All Demographics Patient Name Age Sex Visit Number Admission Date/Time Attending Physician Date of Service Room and Bed Emergency Contact ENE GUAMAN 1965 59 years Male [id number] 12/26/2024 15:07 rBandon Marshall 12/26/2024 15-OP Pain Management Follow Up Vital Signs: This [...] Rate Method Fundal Height Most Recent Vitals 12/26/2024 15:20 139/84 Sitting/Left Arm 102 64 Pulse Ox 36.2 Tympanic 97.1 Tympanic 97 % Room Air 21% 5 172.7 cm 68 in 97.52 kg 215.0 Stated 32.69 2.16 139 84 false Chief Complaint: Cervical radiculopathy History of Present Illness: Cervical Radiculopathy Patient here today, for pain management follow up for Medication Management and Trigger Point Injections. Location: The pain is located in the base of the skull, shoulders, left leg and back. States his neck pain is worse, ears are ringing and its causing his jaw to hurt. The pain does radiate down arms, legs, and hands. Quality: Patient rates the pain today, as a 5/10 at this time, and at times the [...] have a cardiac catheterization tomorrow Monday10/29/24. His manager web said he cannot stop his blood thinners (Plavix) for 6 months. Discussed pausing any future INGA's until that time. We discussed proceeding with bilateral SI joint injections for SI joint pain. We discussed risks and benefits of the procedure. Patient wishes to proceed. Discussed reducing opioid dose and frequency following cardiac procedure. CHIEF PROCUREMENT OFFICER checked and patient offered Narcan. Date of appointment: 12/26/24 Patient reports ongoing cervical pain. We are unable to perform the cervical epidural due to the Plavix he must be on for the next 6 months. He states that he is interested in doing cervical trigger point injections in the meantime. We discussed risks and benefits of trigger point injections. Patient verbalizes understanding and wishes to proceed. We discussed the policy about weening pain medications once again. He is no longer interested in SI joint injections since he started feeling better after walking more. Patient reports that his gabapentin is working and would like to stay at this dose. Cervical Trigger Assessment: Patient had palpatory trigger points and tenderness at his bilateral trapezius/ levator scap/ and rhomboids. Palpation reproduced sharp pain. Anterior head carriage. Trigger Points of the trapezius/rhomboid/levator scapulae Provider: EDSON Arcos Pre-Operative Diagnosis: Myositis 71009 - 3-4 muscle groups Post-Operative Diagnosis: Same Location of procedure: [ ] OR [ X] Clinic Complications: None Description of Procedure in Detail: Trigger point injections of the trapezius /rhomboid/levator scapulae on the left Patient was placed in sitting position. Trigger points palpated in the cervical region. Skin was prepped with ChloraPrep. 3-minute dry time was allowed. A 25 gauge 1.5-inch echogenic inch needle the body of the trapezius muscle at left border and injected with 2mL of injectate. The injectate is a mix of 2.5ml of 0.5% Ropivacaine and 1 mL 10 mg decadron and 2.5mL of 2% lidocaine. A muscle twitch was observed. The injection duplicated send of the patient's pain. The injection was repeated into the levator scapulae muscle on the left side at the spinal border and the rhomboid on the left. The patient tolerated the procedure well. The patient experienced some relief immediately. Provider Signature: AIDE Arcos CRNA-Gordon ROPIVACAINE HCL INJECTION 0.5% [facility]: 85553-081-19 LOT [id number] EXP 2025-05 LIDOCAINE 2% [facility] 46441-572-72 LOT [id number] EXP DEXAMETHASONE SODIUM 10MG/ML [facility] 42591-591-36 LOT [id number] EXP Radiology imaging reviewed at appointment: MRI from 06/05/23 reviewed 11/25/24. Radiology: Imaging reviewed with patient Pain Treatment History: Conservative Measures Tried and Failed: PT, heat/ice, rest Medications Trialed: opioids, gabapentin, muscle relaxers, anti depressants, nsaids, tylenol Previous Interventional Pain Procedures: Cervical INGA - significant relief Plan Hydrocodone 10/325 3 times daily PRN. Total 73 pills. 30 days. F/U 30 Problem List GERD without esophagitis Low back pain co-occurrent and due to bilateral sciatica Neuropathy Degenerative disc disease Herniated lumbar intervertebral disc Herniated cervical disc Chronic pain syndrome Surgery List History of tonsillectomy, Surgery on nasal sinus, Smoking Status: Unknown if ever smoked, Cessation Education: Allergy List No Known Drug Allergies, Medication Home Meds: Dose and Freq Medication Dosage Frequency Atenolol 50MG Oral Tablet 50 MILLIGRAMS TWICE A DAY Atorvastatin Calcium 40MG Oral Tablet 40 MILLIGRAMS AT BEDTIME Citalopram 40MG Oral Tablet 40 MILLIGRAMS ONCE A DAY Cyclobenzaprine HCl 5MG Oral Tablet 10 MILLIGRAMS NEEDED 3 TIMES A DAY Pantoprazole Sodium 40 MG Oral Tablet, Delayed Release 40 MG ONCE A DAY amLODIPine Besylate 5MG Oral Tablet 5 MILLIGRAMS ONCE A DAY traZODone hydrochloride 50MG Oral Tablet 50 MILLIGRAMS AT BEDTIME Albuterol Sulfate 0.09MG/1Actuation Inhalation Suspension 1 EACH NEEDED Aspirin 81MG Oral Tablet, Enteric Coated 81 MILLIGRAMS ONCE A DAY Plavix 75MG Oral Tablet 75 MILLIGRAMS ONCE A DAY HYDROcodone bitartrate-acetaminophen 10MG-325MG Oral Tablet 1 TABLET NEEDED 3 TIMES A DAY [facility] 03/10/2025 16:19 Demographics Basic Patient Name Age Sex ENE GUAMAN 1965 59 years Male Date/Time: 01/02/2055 Discussion with Zeus Kuo NP, related to the UDS (urine drug screen) results for Shalom Guaman. Results scanned into chart. Zeus wanted it note that patient may come here for injections Shalom will require another UDS, at next point of contact with our office. Per Zeus: UDS will be unknown to patient. Next appt. is booked for clinic visit, on 01/23/25 at 11am. Demographics Basic Patient Name Age Sex ENE GUAMAN 1965 59 years Male Date/Time: 01/21 left - returned call at 1605 Caller Name: pharmacy Voicemail (VM) received from the pharmacist at [facility] in [place] r/t concerns for Pamela current [place] order Called Pharmacy back and spoke to pharmacist Chika. Pharmacist reports a medication order was received today, from patients PCP Dr. Watts, for [place] 10mg 90# for 30days, the patient sig, includes per patients pain specialist. Notified Pharmacist that we are still managing Eugenios pain medications, at this time, with an upcoming appt. on this week. We (this pain management office and either provider) are not aware of this order and did not ask for assistance from the PCP; however, the patient may have. FY patient no showed at appt today called pharmacy and spoke to Chika, Pharmacist. She reports: PCP provider called on 01/21. PCP stated they are aware of the previous pain management prescription, and PCP will now manage the patient narcotics, at this time. PCP stated aware Pain Management is no longer prescribing for Ene. Notified Chika, patient did not keep appt today. Pain management provider Zeus, notified, verbally and via patients chart. This staff will call patient to schedule a r/s appt.
--- OUTSIDE RECORDS SUMMARY | 2025-05-18 13:54 | XMS_ITS | Encounter Summary ---
Author Organization [facility] Address [address] [place] [address] Phone Care Team Providers Care Canceling Machine Operator Name Role Phone Mann Mijares MD Primary Care Provider [phone] Encounter Details Date Type Department Care Team (Latest Contact Info) Description 11/05/2024 Orders Only [facility] Scanning, Provider Social History Tobacco Use Types Packs/Day Years Used Date Smoking Tobacco: Every Day Smokeless Tobacco: Never Sex and Gender Information Value Date Recorded Sex Assigned at Not on file Legal Sex Male 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 Gender Identity Not on file Sexual Orientation Not on file documented as of this encounter Plan of Treatment Not on file documented as of this encounter Procedures Procedure Name Priority Date/Time Associated Diagnosis Comments CARDIOLOGY DOCUMENT SCAN 11/05/2024 documented in this encounter Results * Cardiology Document Scan (11/05/2024) Anatomical Region Laterality Modality Other us Provider Scanning CV CARDIAC SERVICES PROCEDURES Final Result documented in this encounter Visit Diagnoses Not on filedocumented in this encounter Care Teams Canceling Machine Operator Relationship Specialty Start Date End Date Mann Mijares MD [address] [place] [address] PCP - General 03/03/16 documented as of this encounter
--- OUTSIDE RECORDS SUMMARY | 2025-05-18 13:54 | XMS_ITS | Clinical Summary ---
Author Organization [facility] [employer] Address [address] [place] [address] Care Team Providers Care Complaint Evaluation Officer Name Role Phone Unavailable Primary Care Provider Unavailabl e Source Comments [facility] [employer],non-owned Affiliates and Associated Physician Practices is amultiple site organization consisting of ambulatory clinics and hospital sitesin [place], [place], [place] and [place]. This disclosure is being madepursuant to the Care Everywhere program and may not contain all information available regarding this patient. 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 Gender Identity Not on file Sexual Orientation Not on file Last Filed Vital Signs Vital Sign Reading Time Taken Comments Blood Pressure 130/86 07/25/2011 11:05 AM MILLINERY WORKER Pulse 69 07/25/2011 11:05 AM MILLINERY WORKER Temperature - - Respiratory Rate 16 07/25/2011 11:05 AM MILLINERY WORKER Oxygen Saturation 97% 07/25/2011 11:05 AM MILLINERY WORKER Inhaled Oxygen Concentration - - Weight - [...] 08/23/2017 ZOSTER VACCINE (1 of 2) 08/23/2017 DEPRESSION SCREENING 05/29/2024 COVID-19 VACCINE (1 - 2024-2 6 season) 2025 INFLUENZA VACCINE (#1) 2025 HIB VACCINE Aged [...] age to complete this topic Insurance MEDICARE [facility] MEDICAID - OUT OF STATE
--- OUTSIDE RECORDS SUMMARY | 2025-05-18 13:55 | XMS_ITS ---
Author Organization Unknown Address [address] [place] [address] [phone] Phone Care Team Providers Care Warehouse Person Name Role Phone SASHA BRUNNER Attending Unavailable [...] 212 CVX Pneumococcal conjugate PCV20 , polysaccharide [id number] conjugate, adjuvant, PF 12/26/2022 Completed 216 CVX Social History Type Status Start Date End Date Code Code Syst em Smoking History Unknown if ever smoked [id number] Sex Male Vital Signs Vital Sign Value Unit [place] Value [place] Unit Date/Time Recent/Initial? Code Code System Body Mass Index 32.69 kg/m2 07/04/2024 09:23 Initial 29323 -5 LOINC Systolic Blood Pressure 128 mm[Hg] 07/04/2024 09:23 Initial 8480- 6 LOINC Diastolic Blood Pressure 80 mm[Hg] 07/04/2024 09:23 Initial 8462- 4 LOINC Body Surface Area 2.16 m2 07/04/2024 09:23 Initial 3140- 1 LOINC Height 172.720 0 cm 68.00 in 07/04/2024 09:23 Initial 8302- 2 [facility] O2 Saturation 96 % 2024 09:23 Initial 18987 -5 [facility] Pulse 56.0 /min 07/04/2024 09:23 Initial 8867- 4 [facility] Temperature 36.2 Sab[place] 97.1 F 07/04/19 09:23 Initial 8310- 5 [facility] Weight 97.52 kg 215.00 lbs 07/04/2024 09:23 Initial 76514 -7 [facility] Medications Medication Start Date End Date Route Frequency Dose Code Code System Medication Instructions Home Meds Gabapentin 100MG Oral Capsule 07/04/2024 08/22/2024 BY MOUTH THREE TIMES A DAY 1 CAPSULE 237569 RxNorm TAKE 1 CAPSULE BY MOUTH THREE TIMES A DAY FOR PAIN HYDROcodone bitartrate-ac etaminophen 10MG-325MG Oral Tablet 07/04/2024 07/22/2024 BY MOUTH NEEDED 3 TIMES A DAY 1 TABLET 396753 RxNorm TAKE 1 TABLET BY MOUTH NEEDED 3 TIMES A DAY FOR PAIN Atenolol 50MG Oral Tablet 07/04/2024 Unknown ORAL TWICE A DAY 50 MILLIGRAMS 847080 RxNorm TAKE 50 MILLIGRAM S ORAL TWICE A DAY Atorvastatin Calcium 40MG Oral Tablet 07/04/2024 Unknown ORAL AT BEDTIME 40 MILLIGRAMS 279205 RxNorm TAKE 40 MILLIGRAM S ORAL AT BEDTIME Citalopram 40MG Oral Tablet 07/04/2024 Unknown ORAL ONCE A DAY 40 MILLIGRAMS 760012 RxNorm TAKE 40 MILLIGRAM S ORAL ONCE A DAY Cyclobenzapri ne HCl 5MG Oral Tablet 07/04/2024 Unknown ORAL NEEDED 3 TIMES A DAY 10 MILLIGRAMS 343789 RxNorm TAKE 10 MILLIGRAM S ORAL NEEDED 3 TIMES A DAY Furosemide 20MG Oral Tablet 07/04/2024 07/17/2024 ORAL NEEDED 20 MILLIGRAMS 004105 RxNorm TAKE 20 MILLIGRAM S ORAL NEEDED Pantoprazole Sodium 40 MG Oral Tablet, Delayed Release 07/04/2024 Unknown ORAL ONCE A DAY 40 MG 940573 RxNorm TAKE 40 MG ORAL ONCE A DAY amLODIPine Besylate 5MG Oral Tablet 07/04/2024 Unknown ORAL ONCE A DAY 5 MILLIGRAMS 368319 RxNorm TAKE 5 MILLIGRAM S ORAL ONCE A DAY traZODone hydrochloride 50MG Oral Tablet 07/04/2024 Unknown ORAL AT BEDTIME 50 MILLIGRAMS 941773 RxNorm TAKE 50 MILLIGRAM S ORAL AT BEDTIME Albuterol Sulfate 0.09MG/1Actua tion Inhalation Suspension 07/22/2024 Unknown INHALATI ON NEEDED 1 unit(s) 8766724 RxNorm 1 EACH INHALATIO N NEEDED HYDROcodone bitartrate-ac etaminophen 10MG-325MG Oral Tablet 07/26/2024 08/22/2024 BY MOUTH ONCE A DAY 1 TABLET 886192 RxNorm TAKE 1 TABLET BY MOUTH ONCE A DAY FOR PAIN HYDROcodone bitartrate-ac etaminophen 10MG-325MG Oral Tablet 07/26/2024 08/22/2024 BY MOUTH NEEDED 3 TIMES A DAY 1 TABLET 260319 RxNorm TAKE 1 TABLET BY MOUTH NEEDED 3 TIMES A DAY FOR PAIN Gabapentin 100MG Oral Capsule 08/22/2024 09/23/2024 BY MOUTH THREE TIMES A DAY 1 CAPSULE 544489 RxNorm TAKE 1 CAPSULE BY MOUTH THREE TIMES A DAY FOR PAIN HYDROcodone bitartrate-ac etaminophen 10MG-325MG Oral Tablet 08/23/2024 09/22/2024 BY MOUTH NEEDED 3 TIMES A DAY 1 TABLET 949206 RxNorm TAKE 1 TABLET BY MOUTH NEEDED 3 TIMES A DAY FOR PAIN HYDROcodone bitartrate-ac etaminophen 10MG-325MG Oral Tablet 08/28/2024 08/23/2024 BY MOUTH ONCE A DAY 1 TABLET 242429 RxNorm TAKE 1 TABLET BY MOUTH ONCE A DAY FOR PAIN Aspirin 81MG Oral Tablet, Enteric Coated 09/30/2024 Unknown ORAL ONCE A DAY 81 MILLIGRAMS 124900 RxNorm TAKE 81 MILLIGRAM S ORAL ONCE A DAY HYDROcodone bitartrate-ac etaminophen 10MG-325MG Oral Tablet 09/30/2024 10/28/2024 BY MOUTH NEEDED 3 TIMES A DAY 1 TABLET 668672 RxNorm TAKE 1 TABLET BY MOUTH NEEDED 3 TIMES A DAY Plavix 75MG Oral Tablet 09/30/2024 Unknown ORAL ONCE A DAY 75 MILLIGRAMS 508514 RxNorm TAKE 75 MILLIGRAM S ORAL ONCE A DAY HYDROcodone bitartrate-ac etaminophen 10MG-325MG Oral Tablet 10/28/2024 11/25/2024 BY MOUTH NEEDED 3 TIMES A DAY 1 TABLET 374566 RxNorm TAKE 1 TABLET BY MOUTH NEEDED 3 TIMES A DAY FOR PAIN HYDROcodone bitartrate-ac etaminophen 10MG-325MG Oral Tablet 11/27/2024 12/26/2024 BY MOUTH NEEDED 3 TIMES A DAY 1 TABLET 299850 RxNorm TAKE 1 TABLET BY MOUTH NEEDED 3 TIMES A DAY FOR PAIN HYDROcodone bitartrate-ac etaminophen 10MG-325MG Oral Tablet 12/26/2024 Unknown BY MOUTH NEEDED 3 TIMES A DAY 1 TABLET 175272 RxNorm TAKE 1 TABLET UP TO 2 [...] Code Code System GERD WITHOUT ESOPHAGITIS active 148931941 SNOMED-CT LOW BACK PAIN CO-OCCURRENT AND DUE TO BILATERAL SCIATICA active 27224746741038795 SNOM ED-CT NEUROPATHY active 417718314 SNOMED-CT DEGENERATIVE DISC DISEASE active 31709149 SNOMED-CT HERNIATED LUMBAR INTERVERTEBRAL DISC active 523898714 SNOMED-C T HERNIATED CERVICAL DISC active 611336 009 SNOMED-CT CHRONIC PAIN SYNDROME active 95061279 6 SNOMED-CT CHRONIC LOWER BACK PAIN active 257076 009 SNOMED-CT MYALGIA OF AUXILIARY MUSCLES, HEAD AND NECK active 11434605 SNOME D-CT Allergies and Adverse Reactions Allergy Substance Reaction Severity Start Date Concern Status Co de Code System No Known Drug Allergies Active 554993787 SNOMED-CT Plan of Treatment New Patient 07/04/2024 Epidural 07/22/2024 OR Epidural 07/22/2024 Epidural 07/22/2024 OR Epidural 07/22/2024 Plan Zynex Machine Gabapentin 100 mg 3 times a day Cervical INGA C6-7 with moderate sedation Hydrocodone 10/325 3 times daily as needed fill date of July 22 Follow-up 2 weeks after INGA Encounters Encounter Diagnosis Start Date Code Code Sys tem Other spondylosis with radiculopathy, cervical region 07/04/2024 SNOMED-CT Personal Care Team Section Performer Name Performer Role Active Date Inactive Da te CHRISTIE WATTS PCP - Primary care physician CHRISTIE WATTS PCP - Primary care physician Progress Notes [facility] 07/04/2024 11:19 All Demographics Patient Name Age Sex Visit Number Admission Date/Time Attending Physician Date of Service Room and Bed Emergency Contact JOSE HOOK 1965 58 years Male [id number] 07/04/2024 09:13 Brandon Marshall 07/04/2024 05-OP PAIN MANAGEMENT HISTORY & PHYSICAL Vital Signs: Most Recent Today Date/Time BP (mm/Hg) BP Position/Site Heart Rate Resp Temp (F) SPO2% O2 Device Pain Score Height (in) Weight (lbs/ozs) BMI Systolic Diastolic Pulse Site O2 L/min 07/04/2024 09:23 128/80 Sitting/Left Arm 56 97.1 Tympanic 96 % Simple Mask 5 68 in 215.0 32.69 128 80 Pulse Ox Chief Complaint: Chronic pain syndrome History of Present Illness: 58 year old patient here today, for pain management evaluation for chronic pain syndrome. Location: The pain is located in the base of skull, in neck, shoulders (Right) leg - in back. The pain does radiate from arms, legs, and hands. Quality: Patient rates the pain today, as a 5/10 at this time, and at times the pain may be as severe as a 10+/10. The pain may be described as numb, achey, sharp, stabbing, burning, throbbing, and sharp. Duration: constant. Timing: Patient reports this pain has been present for 31 years. Alleviating Factors: Pain is relieved by massage therapy, and TNS unit. Associated Symptoms: Pain is worsened by standing a long time, and lifting Pain History: Jose is with a history of neck surgery. Patient reports that they have had no recent falls. PHQ-9 Depression Screening Patient condition has declined since last screening Patient condition has improved since last screening X No previous Screening Patient Declined Screening Score has not changed significantly since last visit PHQ-9 Score Assessment: N/A: PHQ-9 not performed/Patient declined 0-4: Not an indicator of depression 7 5-9: Indicates mild depression 10-14: Indicates moderate depression 15-19: Indicates moderately severe depression 20-27: Indicates severe depression Depression Remission Indicated: Yes, previous PHQ-9 score >9 in the past 12 months with current score <5 Previous PHQ-9 score or date is unknown Previous PHQ-9 score is 5 or higher KEHINDE-7 Score Assessment: N/A: KEHINDE-7 not performed/Patient declined 0-4: Minimal Anxiety 5 5-9: Mild Anxiety 10-14: Moderate Anxiety 15-21: [...] bilateral neuroforaminal stenosis at C5-6. Patient has multi level degenerative changes of the cervical spine and [...] as attempting interventions and weaning the hydrocodone. Patient would benefit from IFC/NMES to reduce pain, muscle atrophy and spasms, and edema in addition to a multimodal approach for treatment of their condition. This device would decrease their use and exposure to pain medications including opioid based medications. This device is medically necessary and is being prescribed in compliance with multiple medical guidelines, including Official Disability Guidelines (ODG) and [employer] guidelines (ACOEM). Axial Low Back Pain Assessment Patient ambulates [...] bilateral severe neural foraminal stenosis at C5-6. We discussed an epidural steroid injection as well as risk and benefits and expectations at C5 67. Patient agrees and wishes to proceed. Radiology: Imaging reviewed with patient Pain Treatment History: Conservative Measures Tried and Failed: PT, heat/ice, rest Medications Trialed: opioids, gabapentin, muscle relaxers, anti depressants, nsaids, tylenol Previous Interventional Pain Procedures: yes - request for records pending Plan Zynex Machine Gabapentin 100 mg 3 times a day Cervical INGA C6-7 with moderate sedation Hydrocodone 10/325 3 times daily as needed fill date of July 22 Follow-up 2 weeks after INGA Problem List GERD without esophagitis Low back pain co-occurrent and due to bilateral sciatica Neuropathy Degenerative disc disease Herniated lumbar intervertebral disc Herniated cervical disc Chronic pain syndrome Surgery List: No Surgical History Available Smoking Status List: No Social History Available Allergy List No Known Drug Allergies, Medication Home Meds: Dose and Freq Medication Dosage Frequency amLODIPine Besylate 5MG Oral Tablet 5 MILLIGRAMS ONCE A DAY Citalopram 40MG Oral Tablet 40 MILLIGRAMS ONCE A DAY Cyclobenzaprine HCl 5MG Oral Tablet 10 MILLIGRAMS NEEDED 3 TIMES A DAY Furosemide 20MG Oral Tablet 20 MILLIGRAMS NEEDED HYDROcodone bitartrate-acetaminophen 10MG-325MG Oral Tablet 1 EACH THREE TIMES A DAY Pantoprazole Sodium 40 MG Oral Tablet, Delayed Release 40 MG ONCE A DAY traZODone hydrochloride 50MG Oral Tablet 50 MILLIGRAMS AT BEDTIME Atorvastatin Calcium 40MG Oral Tablet 40 MILLIGRAMS AT BEDTIME Atenolol 50MG Oral Tablet 50 MILLIGRAMS TWICE A DAY
--- OUTSIDE RECORDS SUMMARY | 2025-05-18 13:55 | XMS_ITS ---
Author Organization Unknown Address [address] [place] [address] [phone] Phone Care Team Providers Care Freelance Copywriter Name Role Phone SASHA BRUNNER Attending Unavailable [...] 212 CVX Pneumococcal conjugate PCV20 , polysaccharide [id number] conjugate, adjuvant, PF 12/26/2022 Completed 216 CVX Social History Type Status Start Date End Date Code Code Syst em Smoking History Unknown if ever smoked [id number] Sex Male Vital Signs Vital Sign Value Unit [place] Value [place] Unit Date/Time Recent/Initial? Code Code System Body Mass Index 32.69 kg/m2 10/28/2024 09:30 Most Recent 65667 -5 LOINC Body Mass Index 32.69 kg/m2 10/28/2024 09:25 Initial 58094 -5 LOINC Systolic Blood Pressure 124 mm[Hg] 10/28/2024 09:30 Initial 8480- 6 LOINC Diastolic Blood Pressure 75 mm[Hg] 10/28/2024 09:30 Initial 8462- 4 LOINC Body Surface Area 2.16 m2 10/28/2024 09:30 Most Recent 3140- 1 LOINC Body Surface Area 2.16 m2 10/28/2024 09:25 Initial 3140- 1 LOINC Height 172.720 0 cm 68.00 in 10/28/2024 09:30 Most Recent 8302- 2 LOINC Height 172.720 0 cm 68.00 in 10/28/2024 09:25 Initial 8302- 2 LOINC O2 Saturation 99 % 2024 09:30 Initial 08067 -5 INC Pulse 61.0 /min 10/28/2024 09:30 Initial 8867- 4 INC Temperature 36.2 Sabine 97.1 F 10/29/19 09:30 Initial 8310- 5 LOINC Weight 97.52 kg 215.00 lbs 10/28/2024 09:30 Most Recent 78068 -7 LOINC Weight 97.52 kg 215.00 lbs 10/28/2024 09:25 Initial 48035 -7 [facility] Medications Medication Start Date End Date Route Frequency Dose Code Code System Medication Instructions Home Meds Atenolol 50MG Oral Tablet 07/04/2024 Unknown ORAL TWICE A DAY 50 MILLIGRAMS 315548 RxNorm TAKE 50 MILLIGRAMS ORAL TWICE A DAY Atorvastatin Calcium 40MG Oral Tablet 07/04/2024 Unknown ORAL AT BEDTIME 40 MILLIGRAMS 608161 RxNorm TAKE 40 MILLIGRAMS ORAL AT BEDTIME Citalopram 40MG Oral Tablet 07/04/2024 Unknown ORAL ONCE A DAY 40 MILLIGRAMS 997790 RxNorm TAKE 40 MILLIGRAMS ORAL ONCE A DAY Cyclobenzapri ne HCl 5MG Oral Tablet 07/04/2024 Unknown ORAL NEEDED 3 TIMES A DAY 10 MILLIGRAMS 435077 RxNorm TAKE 10 MILLIGRAMS ORAL NEEDED 3 TIMES A DAY Pantoprazole Sodium 40 MG Oral Tablet, Delayed Release 07/04/2024 Unknown ORAL ONCE A DAY 40 MG 472332 RxNorm TAKE 40 MG ORAL ONCE A DAY amLODIPine Besylate 5MG Oral Tablet 07/04/2024 Unknown ORAL ONCE A DAY 5 MILLIGRAMS 843499 RxNorm TAKE 5 MILLIGRAMS ORAL ONCE A DAY traZODone hydrochloride 50MG Oral Tablet 07/04/2024 Unknown ORAL AT BEDTIME 50 MILLIGRAMS 703296 RxNorm TAKE 50 MILLIGRAMS ORAL AT BEDTIME Albuterol Sulfate 0.09MG/1Actua tion Inhalation Suspension 07/22/2024 Unknown INHALATI ON NEEDED 1 unit(s) 2725389 RxNorm 1 EACH INHALATION NEEDED HYDROcodone bitartrate-ac etaminophen 10MG-325MG Oral Tablet 09/30/2024 10/29/19 25 BY MOUTH NEEDED 3 TIMES A DAY 1 TABLET 353327 RxNorm TAKE 1 TABLET BY MOUTH NEEDED 3 TIMES A DAY Aspirin 81MG Oral Tablet, Enteric Coated 09/30/2024 Unknown ORAL ONCE A DAY 81 MILLIGRAMS 040825 RxNorm TAKE 81 MILLIGRAMS ORAL ONCE A DAY Plavix 75MG Oral Tablet 09/30/2024 Unknown ORAL ONCE A DAY 75 MILLIGRAMS 038874 RxNorm TAKE 75 MILLIGRAMS ORAL ONCE A DAY HYDROcodone bitartrate-ac etaminophen 10MG-325MG Oral Tablet 10/28/2024 11/26/19 25 BY MOUTH NEEDED 3 TIMES A DAY 1 TABLET 913428 RxNorm TAKE 1 TABLET BY MOUTH NEEDED 3 TIMES A DAY FOR PAIN HYDROcodone bitartrate-ac etaminophen 10MG-325MG Oral Tablet 11/27/2024 12/27/19 25 BY MOUTH NEEDED 3 TIMES A DAY 1 TABLET 586245 RxNorm TAKE 1 TABLET BY MOUTH NEEDED 3 TIMES A DAY FOR PAIN HYDROcodone bitartrate-ac etaminophen 10MG-325MG Oral Tablet 12/26/2024 Unknown BY MOUTH NEEDED 3 TIMES A DAY 1 TABLET 466723 RxNorm TAKE 1 TABLET UP TO 2 [...] Code Code System GERD WITHOUT ESOPHAGITIS active 132162386 SNOMED-CT LOW BACK PAIN CO-OCCURRENT AND DUE TO BILATERAL SCIATICA active 69285842669273498 SNOM ED-CT NEUROPATHY active 922293069 SNOMED-CT DEGENERATIVE DISC DISEASE active 48904775 SNOMED-CT HERNIATED LUMBAR INTERVERTEBRAL DISC active 115174939 SNOMED-C T HERNIATED CERVICAL DISC active 701239 009 SNOMED-CT CHRONIC PAIN SYNDROME active 21911124 6 SNOMED-CT CHRONIC LOWER BACK PAIN active 989540 009 SNOMED-CT MYALGIA OF AUXILIARY MUSCLES, HEAD AND NECK active 09336230 SNOME D-CT Allergies and Adverse Reactions Allergy Substance Reaction Severity Start Date Concern Status Co de Code System No Known Drug Allergies Active 692105008 SNOMED-CT Plan of Treatment New Patient 07/04/2024 Epidural 07/22/2024 OR Epidural 07/22/2024 Epidural 07/22/2024 OR Epidural 07/22/2024 Encounters Encounter Diagnosis Start Date Code Code Sys tem Sacrococcygeal disorders, not elsewhere classified 06/2024 SNOMED-CT Personal Care Team Section Performer Name Performer Role Active Date Inactive Da te CHRISTIE WATTS PCP - Primary care physician CHRISTIE WATTS PCP - Primary care physician Progress Notes [facility] 10/28/2024 10:05 All Demographics Patient Name Age Sex Visit Number Admission Date/Time Attending Physician Date of Service Room and Bed Emergency Contact ENE HOOK 1965 59 years Male [id number] 10/28/2024 09:25 Brandon Marshall 10/28/2024 03-OP Pain Management Follow Up Vital Signs: Today Date/Time BP (mm/Hg) BP Position/Site MAP (mm/Hg) Heart Rate Pulse Site Resp Temp (C) Temp (F) SPO2% O2 L/min FiO2 EtCO2 (mm/Hg) O2 Device Blood Sugar Pain Score Height (cm) Height (in) Weight (kg) Weight (lbs/ozs) Scale BMI BSA Head Cir (cm) 10/28/2024 09:30 124/75 Sitting/Left Arm 91 61 Pulse Ox 36.2 Tympanic 97.1 Tympanic 99 % Room Air 21% 6 172.7 cm 68 in 97.52 kg 215.0 Stated 32.69 2.16 10/28/2024 09:25 172.7 cm 68 in 97.52 kg 215.0 Stated 32.69 2.16 Chief Complaint: SI joint inflammation History of Present Illness: Cervical Radiculopathy Patient here today, for pain management follow up for Medication Management. Location: The pain is located in the base of the skull, shoulders, left leg and back. The pain does radiate down arms, legs, [...] declined 0-4: Not an indicator of depression 5 5-9: Indicates mild depression 10-14: Indicates moderate [...] bilateral severe neural foraminal stenosis at C5-6. Date of appointment: 10/28/24 Discussion: Patient stated he had great relief for 3 weeks following previous cervical INGA. He is scheduled to have a cardiac catheterization tomorrow Monday10/29/24. His student development advisor said he cannot stop his blood thinners (Plavix) for 6 months. Discussed pausing any future INGA's until that time. We discussed proceeding with bilateral SI joint injections for SI joint pain. We discussed risks and benefits of the procedure. Patient wishes to proceed. Discussed reducing opioid dose and frequency following cardiac procedure. CONSUMER RELATIONS COMPLAINT CLERK checked and patient offered Narcan. Radiology imaging reviewed at appointment: MRI from 06/05/23 reviewed Radiology: Imaging reviewed with patient Pain Treatment History: Conservative Measures Tried and Failed: PT, heat/ice, rest Medications Trialed: opioids, gabapentin, muscle relaxers, anti depressants, nsaids, tylenol Previous Interventional Pain Procedures: Cervical INGA - significant relief Plan Hydrocodone 10/325 3 times daily PRN Bilateral SI joint injections- November 2024 F/U 4 weeks Problem List GERD without esophagitis Low back [...] Sulfate 0.09MG/1Actuation Inhalation Suspension 1 EACH NEEDED HYDROcodone bitartrate-acetaminophen 10MG-325MG Oral Tablet 1 TABLET NEEDED 3 TIMES A DAY Aspirin 81MG Oral Tablet, Enteric Coated 81 MILLIGRAMS ONCE A DAY Plavix 75MG Oral Tablet 75 MILLIGRAMS ONCE A DAY
--- OUTSIDE RECORDS SUMMARY | 2025-05-18 13:55 | XMS_ITS | Encounter Summary ---
Author Organization [facility] Address [address] [place] [address] Phone Care Team Providers Care Lead Ios Developer Name Role Phone Godfrey Villarreal MD Unavailable Jacque Mathew APRN, CREDIT VERIFIER Unavailable Benny Mijares MD Primary Care Provider [phone] Maeve Lopez APRN, CREDIT VERIFIER Unavailable Blaine Ashby MD Unavailable Chau Rush MD Unavailable Francesco Junior MD Unavailable [phone] Charles Miguel MD Unavailable Reason for Visit * Reason Comments Medication Refill Encounter Details Date Type Department Care Team (Late st Contact Info) Description 03/29/2024 Refill [facility] - Internal Medicine - [place] [address] [place] [address] Shravan Og MD [address] [place] [address] Medication Refill Social History Tobacco Use Types Packs/Day Years Used Date Smoking Tobacco: Every Day Cigarettes 0.5 20 Passive Smoke Exposure: Current Smokeless Tobacco: Former Comments:only used chew for about a year, quit chewing about 25 years ago Alcohol Use Standard Drinks/Week Comments Yes 6 (1 standard drink = 0.6 oz pur e alcohol) ONCE EVERY THREE WEEKS [facility] Utilities Answer Date Recorded In the past 12 months has grace e electric, gas, oil, or water company [...] often do you attend chur ch or worship services? Never 08/29/2023 Do you belong to any clubs o r organizations such as restorationist groups, unions, fraternal or athletic groups, or [...] Total Score - Questions 1-9 0 12/28 [facility] [place] of Occupat ional Health - Occupational Stress [...] place to sleep or slept in a jail (including now)? No 08/29/2023 Sexually Active Control [...] Care Team (Late st Contact Info) Description 06/26/2025 2:45 PM HISTORICAL INTERPRETER Office Visit [facility] - Cardiology - [place] [address] [place] [phone] Francesco Junior MD [address] [facility]. [address] [place] [address] 07/24/2025 2:45 PM HISTORICAL INTERPRETER Office Visit [facility] Medical [facility] - Family Medicine - [place] [address] [place] [phone] Benny Mijares MD [address] [address] documented as of this encounter Visit Diagnoses Not on filedocumented in this encounter Additional Health Concerns Infection Onset Date Last Indicated Resolved Time COVID - 19 10/17/2024 10/17/2024 10/17/2024 11:5 2 AM CDT COVID - 19 Confirmed 10/17/2024 10/24/2024 025 11:00 PM CDT COVID - 19 10/24/2024 10/24/2024 10/24/2024 2:08 PM CDT Respiratory Rule-Out 01/29/2025 01/29/2025 025 8:01 PM CDT Assessment Noted Time PHQ-9 Depression Total Score: 0 01/16/20 3:36 PM CDT documented as of this encounter Care Teams Lead Ios Developer Relationship Specialty Start Date End Date Benny Mijares MD [address] [address] PCP - General Family Medicine 04/19/24 Godfrey Villarreal MD Consulting Physician Cardiovascular Disease - Cardiology 11/15/22 05/07/24 Jacque Ryder APRN, CREDIT VERIFIER [address] [place] [address] Nurse Practitioner Advanced Practice Nurse 09/23/22 Maeve Lopez APRN, CREDIT VERIFIER [address] [place] [phone] Nurse Practitioner Cardiology 09/06/24 Blaine Ashby MD [address] [place] [phone] Consulting Physician Pulmonary Disease 10/16/24 Chau Rush MD [address] [address] Consulting Physician Colon and Rectal Surgery 10/16/24 Francesco Junior MD [address] [address] Consulting Physician Cardiology 01/03/25 Charles Miguel MD [address] [address] Consulting Physician Urology 03/12/25 documented as of this encounter
--- OUTSIDE RECORDS SUMMARY | 2025-05-18 13:55 | XMS_ITS | Clinical Summary ---
Author Organization [facility] Address [address] [place] [address] Phone Care Team Providers Care Case Finisher Name Role Phone Benny Mijares MD Primary Care Provider [phone] Allergies No known active allergies Medications albuterol sulfate HFA 90 mcg/actuation aerosol inhaler Take 2 Puffs by inhalation every 6 hours as needed for Shortness of Breath or Wheezing. Active amLODIPine (NORVASC) 5 mg tablet Take 5 mg by mouth daily. Active aspirin (DAYANNA CHEWABLE) 81 mg Tablet, Chewable Take 81 mg by mouth daily. Active atenoloL (TENORMIN) 50 mg tablet Take 50 mg by mouth daily. Active atorvastatin (LIPITOR) 40 mg tablet Take 40 mg by mouth daily at bedtime. Active citalopram (CeleXA) 40 mg tablet Take 40 mg by mouth daily. Active clopidogreL (PLAVIX) 75 mg Tablet Take 75 mg by mouth daily. Active cyclobenzaprine (FLEXERIL) 10 mg tablet Take 10 mg by mouth 3 times daily as needed for Spasm. Active furosemide (LASIX) 20 mg tablet Take 20 mg by mouth 1 time daily as needed for Other (See Comment) (leg swelling). Active gabapentin (NEURONTIN) 100 mg capsule Take 100 mg by mouth every 8 hours as needed for Pain. Active HYDROcodone-francy taminophen (NORCO) 10-325 mg Tablet Take 1 Tablet by mouth every 8 hours as needed for Pain, Moderate. Active pantoprazole (PROTONIX) 40 mg Tablet, Delayed Release (E.C.) Take 40 mg by mouth daily. Active traZODone (DESYREL) 50 mg tablet Take 50 mg by mouth 1 time daily as needed for Insomnia. Active ferrous sulfate 325 mg (65 mg iron) tablet Take 1 Tablet (325 mg) by mouth daily. 90 Tablet Active Active Problems Problem Noted Date Diagnosed Date CAD (coronary atherosclerotic disease) COPD (chronic obstructive pulmonary disease) 01/2025 Major depression 02/04/2025 Herniated cervical disc 02/04/2025 Herniated lumbar intervertebral disc 02/04/2025 Benign hypertension 02/04/2025 Hyperlipidemia 02/04/2025 Neuropathy 02/04/2025 Thoracic outlet syndrome 02/04/2025 Lower GI bleed 02/04/2025 Diverticulitis 02/04/2025 Syncope 02/04/2025 Unintentional weight loss 02/04/2025 Acute blood loss anemia 02/04/2025 Encounters Date Type Department Care Team Description 04/29/2025 External Device Data [facility] Provider, Abstract 04/15/2025 External Device Data [facility] Provider, Abstract 04/15/2025 External Device Data [facility] Provider, Abstract 04/15/2025 External Device Data [facility] Provider, Abstract 04/02/2025 External Device Data [facility] Provider, Abstract 03/19/2025 External Device Data [facility] Provider, Abstract 03/18/2025 External Device Data [facility] Provider, Abstract 03/11/2025 External Device Data [facility] Provider, Abstract 03/11/2025 External Device Data [facility] Provider, Abstract 03/11/2025 External Device Data [facility] Provider, Abstract from Last 3 Months Family History Medical History Relation Name Comments Heart Disease Maternal Grandmother Diverticulosis Mother Heart Disease Paternal Grandmother Relation Name Status Comments Maternal Grandmother Mother Paternal Grandmother Social History Tobacco Use Types Packs/Day Years Used Date Smoking Tobacco: Every Day Cigarettes Tobacco Cessation:Ready to Q uit: Not Asked; Counseling Given: Not Answered Comments:1 pack/day for 41.7 years, quit [id number] for 2 years Still smoking half pack a day Alcohol Use Standard Drinks/Week Comments Yes 0 (1 standard drink = 0.6 oz pur e alcohol) occasionally Feeling Safe Answer Date Recorded Are you in a relationship wi th someone who hurts you emotionally and/or physically? No 02/07/2025 Food Insecurity Answer Date Recorded Patient needs follow up regardin 02/04/2025 Transportation Needs Answer Date Record ed Patient needs follow up regardin 02/04/2025 Utility Needs Answer Date Recorded Patient needs follow up regardin 02/04/2025 Sex and Gender Information Value Date Recorded Sex Assigned at Not on file Legal Sex Male 5:19 PM CDT Gender Identity Not on file Sexual Orientation Not on file Last Filed Vital Signs Vital Sign Reading Time Taken Comments Blood Pressure 100/51 02/07/2025 10:52 AM CDT Pulse 79 02/07/2025 10:52 AM CDT Temperature 36.2 C (97.1 F) 02/07/2025 10:13 AM CDT Respiratory Rate 17 02/07/2025 10:52 AM CDT Oxygen Saturation 94% 02/07/2025 10:52 AM CDT Inhaled Oxygen Concentration - - Weight 99.9 kg (220 lb 3.2 oz) 02/04/2025 3:25 A M CDT Height 175.3 cm (5' 9) 02/04/2025 3:25 AM CDT Body Mass Index 32.52 02/04/2025 3:25 AM CDT Plan of Treatment Health Maintenance Due Date Last Done Comments Pre-Diabetes and Diabetes Screening 1965 HEPATITIS B VACCINES (1 of 3 - 19+ 3-dose series) 08/23/1986 FIT-DNA Q 3 years 08/23/2012 FIT/FOBT Q 1 year 08/23/2012 Flex Sig/CT Colonography Q 5 years 08/23/2012 ZOSTER VACCINE (2 of 2) 01/17/2023 11/22/2022 INFLUENZA VACCINE (#1) 2024 4, 03/22/2023, 03/17/2022, Additional history exists DTAP/TDAP/TD VACCINES (2 - T d or Tdap) 01/31/2026 02/01/2016 COLORECTAL SCREENING 02/07/2035 02/07/2025, 02/08/20 Colorectal Cancer Screening 02/07/2035 Procedures Procedure Name Priority Date/Time Associated Diagnosis Comments COLONOSCOPY REPORT 02/07/2025 10 :35 AM CDT from Last 3 Months or Most Recently Relevant to Health Maintenance Results * COLONOSCOPY REPORT (02/07/2025 10:35 AM CDT) Narrative Procedure Note Odessa Mark DO - 02/07/2025 10:35 AM CDT [facility] Endoscopy Patient Name: Jose Guaman Procedure Date: 02/07/2025 Date of : 1965 Attending MD: Odessa Mark DO, Procedure: Colonoscopy Indications: Lower gastrointestinal bleeding Providers: Odessa Mark DO Referring MD: Medicines: Monitored Anesthesia Care Complications: No immediate complications. Procedure: Informed consent was obtained for the procedure, including moderate sedation after risks were discussed. Based on the pre-procedure assessment, including review of the patient's medical history, medications, allergies, and review of systems, the patient was deemed to be an appropriate candidate for sedation. A timeout was performed. Continuous ECG monitoring, pulse oximetry, blood pressure monitoring, and direct observation were performed. The Colonoscope was introduced through the anus and advanced to the terminal ileum, with identification of the appendiceal orifice and IC valve. The colonoscopy was performed without difficulty. The patient tolerated the procedure well. The quality of the bowel preparation was fair. The ileocecal valve, appendiceal orifice, and rectum were photographed. Estimated Blood Loss: Estimated blood loss: none. Findings: Hemorrhoids were found on perianal exam. The terminal ileum appeared normal. A moderate amount of somewhat particulate semi-liquid stool yellow/brown in colon was found in the entire colon. Lavage of the area was performed, resulting in incomplete clearance with fair visualization. There is no endoscopic evidence of active or recent bleeding in the entire colon. Many large-mouthed, medium-mouthed and small-mouthed diverticula were found in the entire colon. No stigmata of bleeding identified. Internal hemorrhoids were found during retroflexion. The hemorrhoids were moderate. No additional abnormalities were found on retroflexion. Impression: - Preparation of the colon was fair. No evidence of active or recent bleeding. - Hemorrhoids found on perianal exam. - The examined portion of the ileum was normal. - Diverticulosis in the entire examined colon without stigmata of inflammation or bleeding. - Internal hemorrhoids. - No specimens collected. - Suspect resolved diverticular bleeding. Recommendation: - [facility]. - Continue to trend H&H, transfuse as needed. - Okay to advance diet as tolerated. - High fiber diet indefinitely. - Complete full 7 days of antibiotic therapy then may discontinue. - GI will sign off with the above recommendations. Please contact with questions. Odessa Mark DO 02/07/2025 10:35:22 AM Number of Addenda: [address]; [place] [address] Odessa Mark DO GI PROCEDURE ORDERABLES Final Re sult from Last 3 Months or Most Recently Relevant to Health Maintenance Insurance [facility] Medicare Part D RX RO PLANS (INTERNAL) [facility] Internal Plans Advance Directives For more information, please contact: [phone] * Full Code (Latest Code Status on File) Date Activated Date Inactivated Comments 02/06/2025 9:03 AM 02/07/2025 4:59 PM * Default Full Code - Needs Discussion Date Activated Date Inactivated Comments 02/04/2025 4:17 AM 02/06/2025 9:03 AM Care Teams Case Finisher Relationship Specialty Start Date End Date Benny Mijares MD [address] [phone] PCP - General Family Practice 02/04/25
--- OUTSIDE RECORDS SUMMARY | 2025-05-18 13:55 | XMS_ITS ---
Author Organization Unknown Address [address] [place] [phone] Phone Care Team Providers Care Ladies Suit Operator Name Role Phone SASHA BRUNNER Attending Unavailable [...] 212 CVX Pneumococcal conjugate PCV20 , polysaccharide NXT675 conjugate, adjuvant, PF 12/26/2022 Completed 216 CVX Social History Type Status Start Date End Date Code Code Syst em Smoking History Unknown if ever smoked [address] Sex Male Vital Signs Vital Sign Value Unit Hartland Value [place]land Unit Date/Time Recent/Initial? Code Code System Body Mass Index 32.69 kg/m2 07/22/2024 13:52 Most Recent 06149 -5 LOINC Body Mass Index 32.69 kg/m2 07/17/2024 11:05 Initial 08539 -5 LOINC Systolic Blood Pressure 140 mm[Hg] 07/22/2024 13:56 Initial 8480- 6 LOINC Diastolic Blood Pressure 85 mm[Hg] 07/22/2024 13:56 Initial 8462- 4 LOINC Body Surface Area 2.16 m2 07/22/2024 13:52 Most Recent 3140- 1 LOINC Body Surface Area 2.16 m2 07/17/2024 11:05 Initial 3140- 1 LOINC Height 172.720 0 cm 68.00 in 07/22/2024 13:52 Most Recent 8302- 2 LOINC Height 172.720 0 cm 68.00 in 07/17/2024 11:05 Initial 8302- 2 LOINC O2 Saturation 97 % 2024 13:56 Initial 20685 -5 LOINC Pulse 67.0 /min 07/22/2024 13:56 Initial 8867- 4 LOINC Respiration 18 /min 07/22/19 13:56 Initial 9279- 1 LOINC Temperature 36.3 Sabine 97.3 F 07/22/19 13:56 Initial 8310- 5 LOINC Weight 97.52 kg 215.00 lbs 07/22/2024 13:52 Most Recent 75598 -7 LOINC Weight 97.52 kg 215.00 lbs 07/17/2024 11:05 Initial 17442 -7 [facility] Medications Medication Start Date End Date Route Frequency Dose Code Code System Medication Instructions Home Meds Gabapentin 100MG Oral Capsule 07/04/2024 08/22/2024 BY MOUTH THREE TIMES A DAY 1 CAPSULE 160273 RxNorm TAKE 1 CAPSULE BY MOUTH THREE TIMES A DAY FOR PAIN HYDROcodone bitartrate-ac etaminophen 10MG-325MG Oral Tablet 07/04/2024 07/22/2024 BY MOUTH NEEDED 3 TIMES A DAY 1 TABLET 066343 RxNorm TAKE 1 TABLET BY MOUTH NEEDED 3 TIMES A DAY FOR PAIN Atenolol 50MG Oral Tablet 07/04/2024 Unknown ORAL TWICE A DAY 50 MILLIGRAMS 557986 RxNorm TAKE 50 MILLIGRAM S ORAL TWICE A DAY Atorvastatin Calcium 40MG Oral Tablet 07/04/2024 Unknown ORAL AT BEDTIME 40 MILLIGRAMS 610061 RxNorm TAKE 40 MILLIGRAM S ORAL AT BEDTIME Citalopram 40MG Oral Tablet 07/04/2024 Unknown ORAL ONCE A DAY 40 MILLIGRAMS 390904 RxNorm TAKE 40 MILLIGRAM S ORAL ONCE A DAY Cyclobenzapri ne HCl 5MG Oral Tablet 07/04/2024 Unknown ORAL NEEDED 3 TIMES A DAY 10 MILLIGRAMS 113563 RxNorm TAKE 10 MILLIGRAM S ORAL NEEDED 3 TIMES A DAY Pantoprazole Sodium 40 MG Oral Tablet, Delayed Release 07/04/2024 Unknown ORAL ONCE A DAY 40 MG 888859 RxNorm TAKE 40 MG ORAL ONCE A DAY amLODIPine Besylate 5MG Oral Tablet 07/04/2024 Unknown ORAL ONCE A DAY 5 MILLIGRAMS 631653 RxNorm TAKE 5 MILLIGRAM S ORAL ONCE A DAY traZODone hydrochloride 50MG Oral Tablet 07/04/2024 Unknown ORAL AT BEDTIME 50 MILLIGRAMS 298052 RxNorm TAKE 50 MILLIGRAM S ORAL AT BEDTIME Albuterol Sulfate 0.09MG/1Actua tion Inhalation Suspension 07/22/2024 Unknown INHALATI ON NEEDED 1 unit(s) 5568787 RxNorm 1 EACH INHALATIO N NEEDED HYDROcodone bitartrate-ac etaminophen 10MG-325MG Oral Tablet 07/26/2024 08/22/2024 BY MOUTH ONCE A DAY 1 TABLET 459891 RxNorm TAKE 1 TABLET BY MOUTH ONCE A DAY FOR PAIN HYDROcodone bitartrate-ac etaminophen 10MG-325MG Oral Tablet 07/26/2024 08/22/2024 BY MOUTH NEEDED 3 TIMES A DAY 1 TABLET 713362 RxNorm TAKE 1 TABLET BY MOUTH NEEDED 3 TIMES A DAY FOR PAIN Gabapentin 100MG Oral Capsule 08/22/2024 09/23/2024 BY MOUTH THREE TIMES A DAY 1 CAPSULE 781103 RxNorm TAKE 1 CAPSULE BY MOUTH THREE TIMES A DAY FOR PAIN HYDROcodone bitartrate-ac etaminophen 10MG-325MG Oral Tablet 08/23/2024 09/22/2024 BY MOUTH NEEDED 3 TIMES A DAY 1 TABLET 723547 RxNorm TAKE 1 TABLET BY MOUTH NEEDED 3 TIMES A DAY FOR PAIN HYDROcodone bitartrate-ac etaminophen 10MG-325MG Oral Tablet 08/28/2024 08/23/2024 BY MOUTH ONCE A DAY 1 TABLET 738625 RxNorm TAKE 1 TABLET BY MOUTH ONCE A DAY FOR PAIN Aspirin 81MG Oral Tablet, Enteric Coated 09/30/2024 Unknown ORAL ONCE A DAY 81 MILLIGRAMS 443592 RxNorm TAKE 81 MILLIGRAM S ORAL ONCE A DAY HYDROcodone bitartrate-ac etaminophen 10MG-325MG Oral Tablet 09/30/2024 10/28/2024 BY MOUTH NEEDED 3 TIMES A DAY 1 TABLET 061170 RxNorm TAKE 1 TABLET BY MOUTH NEEDED 3 TIMES A DAY Plavix 75MG Oral Tablet 09/30/2024 Unknown ORAL ONCE A DAY 75 MILLIGRAMS 228625 RxNorm TAKE 75 MILLIGRAM S ORAL ONCE A DAY HYDROcodone bitartrate-ac etaminophen 10MG-325MG Oral Tablet 10/28/2024 11/25/2024 BY MOUTH NEEDED 3 TIMES A DAY 1 TABLET 314995 RxNorm TAKE 1 TABLET BY MOUTH NEEDED 3 TIMES A DAY FOR PAIN HYDROcodone bitartrate-ac etaminophen 10MG-325MG Oral Tablet 11/27/2024 12/26/2024 BY MOUTH NEEDED 3 TIMES A DAY 1 TABLET 052241 RxNorm TAKE 1 TABLET BY MOUTH NEEDED 3 TIMES A DAY FOR PAIN HYDROcodone bitartrate-ac etaminophen 10MG-325MG Oral Tablet 12/26/2024 Unknown BY MOUTH NEEDED 3 TIMES A DAY 1 TABLET 195677 RxNorm TAKE 1 TABLET UP TO 2 [...] Name Date Status Code Code Syste m History of tonsillectomy completed 960434086 SNOMEDCT NJX DX/THER SBST INTRLMNR CR V/THRC W/IMG GDN 07/22/2024 completed 45211 CPT Surgery on nasal sinus completed [id number] SN OMEDCT Problems Problem Start Date Resolved Date Status Code Code System GERD WITHOUT ESOPHAGITIS active 488066035 SNOMED-CT LOW BACK PAIN CO-OCCURRENT AND DUE TO BILATERAL SCIATICA active 14223610214091955 SNOM ED-CT NEUROPATHY active 162221287 SNOMED-CT DEGENERATIVE DISC DISEASE active 38182705 SNOMED-CT HERNIATED LUMBAR INTERVERTEBRAL DISC active 270948862 SNOMED-C T HERNIATED CERVICAL DISC active 813505 009 SNOMED-CT CHRONIC PAIN SYNDROME active 49643030 6 SNOMED-CT CHRONIC LOWER BACK PAIN active 405434 009 SNOMED-CT MYALGIA OF AUXILIARY MUSCLES, HEAD AND NECK active 89977819 SNOME D-CT Allergies and Adverse Reactions Allergy Substance Reaction Severity Start Date Concern Status Co de Code System No Known Drug Allergies Active 877181577 SNOMED-CT Plan of Treatment New Patient 07/04/2024 Epidural 07/22/2024 OR Epidural 07/22/2024 Epidural 07/22/2024 OR Epidural 07/22/2024 Encounters Encounter Diagnosis Start Date Code Code Sys tem Radiculopathy, cervical region 07/22/2024 SNOMED-CT Personal Care Team Section Performer Name Performer Role Active Date Inactive Da CHRISTIE Baker PCP - Primary care physician CHRISTIE WATTS PCP - Primary care physician Procedures Notes [facility] 07/22/2024 15:01 All Demographics Patient Name Age Sex Visit Number Admission Date/Time Attending Physician Date of Service Room and Bed Emergency Contact MILADYS ENE BENZ 1965 58 years Male [id number] 07/22/2024 13:39 Brandon Marshall 07/22/2024 SDS-8 Pain Management Procedural Note I had an extensive discussion with the patient. We once again discussed the risks, benefits and alternatives to this procedure. I discussed the operative and postoperative course in detail. I discussed potential complications that we may encounter. The patient is electing to undergo this procedure. No guarantees were given or implied. I reviewed the history and physical, examined the patient this morning, no changes. Home Meds: Dose and Freq Medication Dosage Frequency Atenolol 50MG Oral Tablet 50 MILLIGRAMS TWICE A DAY Atorvastatin Calcium 40MG Oral Tablet 40 MILLIGRAMS AT BEDTIME Citalopram 40MG Oral Tablet 40 MILLIGRAMS ONCE A DAY Cyclobenzaprine HCl 5MG Oral Tablet 10 MILLIGRAMS NEEDED 3 TIMES A DAY amLODIPine Besylate 5MG Oral Tablet 5 MILLIGRAMS ONCE A DAY Albuterol Sulfate 0.09MG/1Actuation Inhalation Suspension 1 EACH NEEDED Gabapentin 100MG Oral Capsule 1 CAPSULE THREE TIMES A DAY HYDROcodone bitartrate-acetaminophen 10MG-325MG Oral Tablet 1 TABLET NEEDED 3 TIMES A DAY Pantoprazole Sodium 40 MG Oral Tablet, Delayed Release 40 MG ONCE A DAY traZODone hydrochloride 50MG Oral Tablet 50 MILLIGRAMS AT BEDTIME Cervical Epidural Steroid Injection C6-C7 Interspace with Static Fluoroscopic Provider: EDSON Arcos-C Pre-Operative Diagnosis: M54.12-Cervical Radiculopathy Cervical [id number] Post-Operative Diagnosis: Same Location of Procedure: [ X ] OR Complications: None Description of procedure in detail: The patient was placed prone on the procedure table. The cervical interspace of C6 and C7 levels were visualized fluoroscopically in A/P projection angle. Using fluoroscopy our skin entry point was determined for C6-7. The patient was prepped and draped in the usual fashion. A 25-gauge needle was then used to inject 1ml of 2% Lidocaine at skin entry site. A 20-gauge Touhy needle was advanced to the epidural space. This was done with static fluoroscopic guidance. The C arm was moved to lateral position to direct needle to epidural space. Once in epidural space 1ml of contrast dye was injected. Needle position was confirmed in A/P and lateral fluoroscopic images. I then injected 3ml of solution containing 1ml 0.5% PF Ropivacaine with 10mg of PF Decadron and 1ml of PF 0.9% NS. Patient was sedated with 1mg IV versed during procedure. Provider Signature: WONG Arcos CRNA
--- OUTSIDE RECORDS SUMMARY | 2025-05-18 13:56 | XMS_ITS ---
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 Code Code System Body Mass Index 32.69 kg/m2 09/30/2024 15:20 Initial 87137 -5 LOINC Systolic Blood Pressure 156 mm[Hg] 09/30/2024 15:20 Initial 8480- 6 LOINC Diastolic Blood Pressure 94 mm[Hg] 09/30/2024 15:20 Initial 8462- 4 LOINC Body Surface Area 2.16 m2 09/30/2024 15:20 Initial 3140- 1 LOINC Height 172.720 0 cm 68.00 in 09/30/2024 15:20 Initial 8302- 2 [facility] O2 Saturation 98 % 2024 15:20 Initial 42115 -5 [facility] Pulse 55.0 /min 09/30/2024 15:20 Initial 8867- 4 [facility] Temperature 36.4 Sabine 97.5 F 10/01/19 25 15:20 Initial 8310- 5 [facility] Weight 97.52 kg 215.00 lbs 09/30/2024 15:20 Initial 76653 -7 [facility] Medications Medication Start Date End Date Route Frequency Dose Code Code System Medication Instructions Home Meds Atenolol 50MG Oral Tablet 07/04/2024 Unknown ORAL TWICE A DAY 50 MILLIGRAMS 496934 RxNorm TAKE 50 MILLIGRAMS ORAL TWICE A DAY Atorvastatin Calcium 40MG Oral Tablet 07/04/2024 Unknown ORAL AT BEDTIME 40 MILLIGRAMS 213173 RxNorm TAKE 40 MILLIGRAMS ORAL AT BEDTIME Citalopram 40MG Oral Tablet 07/04/2024 Unknown ORAL ONCE A DAY 40 MILLIGRAMS 495457 RxNorm TAKE 40 MILLIGRAMS ORAL ONCE A DAY Cyclobenzapri ne HCl 5MG Oral Tablet 07/04/2024 Unknown ORAL NEEDED 3 TIMES A DAY 10 MILLIGRAMS 757625 RxNorm TAKE 10 MILLIGRAMS ORAL NEEDED 3 TIMES A DAY Pantoprazole Sodium 40 MG Oral Tablet, Delayed Release 07/04/2024 Unknown ORAL ONCE A DAY 40 MG 160921 RxNorm TAKE 40 MG ORAL ONCE A DAY amLODIPine Besylate 5MG Oral Tablet 07/04/2024 Unknown ORAL ONCE A DAY 5 MILLIGRAMS 560993 RxNorm TAKE 5 MILLIGRAMS ORAL ONCE A DAY traZODone hydrochloride 50MG Oral Tablet 07/04/2024 Unknown ORAL AT BEDTIME 50 MILLIGRAMS 718668 RxNorm TAKE 50 MILLIGRAMS ORAL AT BEDTIME Albuterol Sulfate 0.09MG/1Actua tion Inhalation Suspension 07/22/2024 Unknown INHALATI ON NEEDED 1 unit(s) 6597348 RxNorm 1 EACH INHALATION NEEDED HYDROcodone bitartrate-ac etaminophen 10MG-325MG Oral Tablet 09/30/2024 10/29/19 25 BY MOUTH NEEDED 3 TIMES A DAY 1 TABLET 918233 RxNorm TAKE 1 TABLET BY MOUTH NEEDED 3 TIMES A DAY Aspirin 81MG Oral Tablet, Enteric Coated 09/30/2024 Unknown ORAL ONCE A DAY 81 MILLIGRAMS 758475 RxNorm TAKE 81 MILLIGRAMS ORAL ONCE A DAY Plavix 75MG Oral Tablet 09/30/2024 Unknown ORAL ONCE A DAY 75 MILLIGRAMS 642182 RxNorm TAKE 75 MILLIGRAMS ORAL ONCE A DAY HYDROcodone bitartrate-ac etaminophen 10MG-325MG Oral Tablet 10/28/2024 11/26/19 25 BY MOUTH NEEDED 3 TIMES A DAY 1 TABLET 668486 RxNorm TAKE 1 TABLET BY MOUTH NEEDED 3 TIMES A DAY FOR PAIN HYDROcodone bitartrate-ac etaminophen 10MG-325MG Oral Tablet 11/27/2024 12/27/19 25 BY MOUTH NEEDED 3 TIMES A DAY 1 TABLET 856870 RxNorm TAKE 1 TABLET BY MOUTH NEEDED 3 TIMES A DAY FOR PAIN HYDROcodone bitartrate-ac etaminophen 10MG-325MG Oral Tablet 12/26/2024 Unknown BY MOUTH NEEDED 3 TIMES A DAY 1 TABLET 119433 RxNorm TAKE 1 TABLET UP TO 2 [...] Code Code System GERD WITHOUT ESOPHAGITIS active 765627305 SNOMED-CT LOW BACK PAIN CO-OCCURRENT AND DUE TO BILATERAL SCIATICA active 55969562629339975 SNOM ED-CT NEUROPATHY active 818202914 SNOMED-CT DEGENERATIVE DISC DISEASE active 78336164 SNOMED-CT HERNIATED LUMBAR INTERVERTEBRAL DISC active 220476516 SNOMED-C T HERNIATED CERVICAL DISC active 965345 009 SNOMED-CT CHRONIC PAIN SYNDROME active 35734064 6 SNOMED-CT CHRONIC LOWER BACK PAIN active 839548 009 SNOMED-CT MYALGIA OF AUXILIARY MUSCLES, HEAD AND NECK active 28944815 SNOME D-CT Allergies and Adverse Reactions Allergy Substance Reaction Severity Start Date Concern Status Co de Code System No Known Drug Allergies Active 924077608 SNOMED-CT Plan of Treatment New Patient 07/04/2024 Epidural 07/22/2024 OR Epidural 07/22/2024 Epidural 07/22/2024 OR Epidural 07/22/2024 Encounters Encounter Diagnosis Start Date Code Code Sys tem Sacrococcygeal disorders, not elsewhere classified 09/2024 SNOMED-CT Personal Care Team Section Performer Name Performer Role Active Date Inactive Da CHRISTIE Baker PCP - Primary care physician CHRISTIE WATTS PCP - Primary care physician Progress Notes [facility] 10/03/2024 09:02 Demographics Basic Patient Name Age Sex ENE HOOK 1965 59 years Male Date/Time: 10/01/2024 & 8:29 am Multiple Calls: seen in office Caller Name: Abundio Chen Phone Number: in chart Pt mentioned that he has another upcoming Cardiac Cath. appt in October 24, for a different artery to possibly treated, at that time. Wanted to ensure you were aware of the step 2 cardiac cath. for Abundio. Will continue to care coordinate with abundio's Cardiac providers related to the INGA cervical. Please send reply here. SPOKE TO RALEIGH, THE NURSE PRACTITIONER IN [facility]. SHE RELAYED THIS INFO: STENT PLACED IN LAD LAST WEEK. ELECTIVE SURGERIES/PROCEDURES SHOULD WAIT 1 YEAR POST STENT; CARDIAC OFFICE WILL RE-ASSESS AT 6 MONTHS. PT WITH UPCOMING CARDIAC CATH WITH ANOTHER STENT POSSIBLY BEING PLACED, END OF SEPTEMBER. NOT CLEARED FROM A CARDIAC STAND POINT, AT THIS TIME, TO STOP PLAVIX. THIS STAFF WILL COMMUNICATE THIS WITH THE PATIENT VIA PHONE. [facility] 09/30/2024 15:34 All Demographics Patient Name Age Sex Visit Number Admission Date/Time Attending Physician Date of Service Room and Bed Emergency Contact ENE HOOK 1965 59 years Male [id number] 09/30/2024 13:25 Brandon Marshall 09/30/2024 09-OP Pain Management Follow Up Vital Signs: Today Date/Time BP (mm/Hg) BP Position/Site MAP (mm/Hg) Heart Rate Pulse Site Resp Temp (C) Temp (F) SPO2% O2 L/min FiO2 EtCO2 (mm/Hg) O2 Device Blood Sugar Pain Score Height (cm) Height (in) Weight (kg) Weight (lbs/ozs) Scale BMI BSA Head Cir (cm) 09/30/2024 15:20 156/94 Sitting/Left Arm 115 55 Pulse Ox 36.4 Tympanic 97.5 Tympanic 98 % Room Air 21% 172.7 cm 68 in 97.52 kg 215.0 Stated 32.69 2.16 Chief Complaint: Lumbar and Cervical Pain History of Present Illness: Cervical Radiculopathy Patient here today, for pain management follow up for INGA C6-7. Procedure gave 50% relief. Location: The pain is located in the base of the skull, shoulders, left leg and back. The pain does radiate down arms, legs, and hands. Quality: Patient rates the pain today, as a 7/10 at this time, and at times the [...] is 5 or higher KEHINDE-7 Score Assessment: Xr N/A: KEHINDE-7 not performed/Patient declined 0-4: Minimal Anxiety 8 5-9: Mild Anxiety 10-14: Moderate Anxiety 15-21: [...] foraminal stenosis at C5-6. Date of appointment: 09/30/24 Discussion: Patient stated he had great relief for 3 weeks following previous cervical INGA. He states he had lasting relief after than until recently. We discussed risks and benefits of repeating this cervical INGA. We discussed the need to speak with his cardiologists as he recently had a cardiac stent placed. He had to go to the ER where he had an IM steroid injection to help with his pain. Patient states he has thoracic outlet syndrome which is causing him more significant pain following his cardiac stent placement. We discussed risks and benefits of Cervical INGA joint injections. Patient wishes to proceed. Radiology imaging reviewed at appointment: MRI from 06/05/23 reviewed Radiology: Imaging reviewed with patient Pain Treatment History: Conservative Measures Tried and Failed: PT, heat/ice, rest Medications Trialed: opioids, gabapentin, muscle relaxers, anti depressants, nsaids, tylenol Previous Interventional Pain Procedures: yes - request for records pending Plan Gabapentin 100 mg 3 times a day Hydrocodone 10/325 3 times daily PRN Cervical INGA at C6-7 - cardiology consultation to hold plavix Problem List GERD without esophagitis Low back pain co-occurrent and due to bilateral sciatica Neuropathy Degenerative disc disease Herniated lumbar intervertebral disc Herniated cervical disc Chronic pain syndrome Surgery List History of tonsillectomy, Surgery on nasal sinus, Smoking Status List: No Social History Available Allergy List No Known Drug Allergies, Medication Home Meds: Dose and Freq: No Home Medications Available
--- OUTSIDE RECORDS SUMMARY | 2025-05-18 13:56 | XMS_ITS | Encounter Summary ---
Author Organization [facility] Address [address] [place] [address] Phone Care Team Providers Care Literacy Consultant Name Role Phone Shravan Og MD Primary Care Provider [phone] Godfrey Villarreal MD Unavailable Jacque Mathew APRN, [employer]ORM [employer]OWER Unavailable Benny Mijares MD Primary Care Provider [phone] Maeve Lopez APRN, [employer] GROWER Unavailable Blaine Ashby MD Unavailable Chau Rush MD Unavailable Francesco Junior MD Unavailable [phone] Charles Miguel MD Unavailable Reason for Visit * Reason Comments Medication Refill Encounter Details Date Type Department Care Team (Late st Contact Info) Description 09/29/2023 Refill [facility] - Internal Medicine - [address] [place] [address] Shravan Og MD [address] [place] [address] Medication Refill Social History Tobacco Use Types Packs/Day Years Used Date Smoking Tobacco: Every Day Cigarettes 0.5 20 Passive Smoke Exposure: Current Smokeless Tobacco: Former Comments:only used chew for about a year, quit chewing about 25 years ago Alcohol Use Standard Drinks/Week Comments Yes 6 (1 standard drink = 0.6 oz pur e alcohol) ONCE EVERY THREE WEEKS [facility] Utilities Answer Date Recorded In the past 12 months has th e electric, gas, oil, or water company [...] often do you attend chur ch or religion services? Never 08/29/2023 Do you belong to any clubs o r organizations such as rastafarian groups, unions, fraternal or athletic groups, or [...] Total Score - Questions 1-9 0 06/2023 [facility] [place] of Occupat ional Health - Occupational Stress [...] place to sleep or slept in a snf (including now)? No 08/29/2023 Sexually Active Control [...] Dept 08/29/23 Office Visit Shravan Og MD [facility] 05/24/23 Office Visit Shravan Og MD [facility] [place] 03/14/23 Office Visit Shravan Og MD [facility] 11/07/22 Office Visit Shravan Og MD [facility] Showing recent visits within past 365 days and meeting all other requirements Future Appointments Date Type Provider Dept 11/15/23 Appointment Shravan Og MD [facility] Showing future appointments within next 90 days and meeting all other requirements documented in this encounter Plan of Treatment Upcoming Encounters Date Type Department Care Team (Late st Contact Info) Description 06/26/2025 2:45 PM DIRECTOR DANCE Office Visit [facility] Medical [facility] - Cardiology - [place] [address] [place] [address] Francesco Junior MD 2 [facility]. [address] [place] [address] 07/24/2025 2:45 PM DIRECTOR DANCE Office Visit [facility] - Family Medicine - [place] [address] [place] [address] Benny Mijares MD [address] [facility] [address] [place] [address] documented as of this encounter Visit Diagnoses [...] documented as of this encounter Care Teams Literacy Consultant Relationship Specialty Start Date End Date Shravan Og MD PCP - General Internal Medicine 05/27/20 02/12/24 Benny Mijares MD [address] [address] PCP - General Family Medicine 04/19/24 Godfrey Villarreal MD Consulting Physician Cardiovascular Disease - Cardiology 11/15/22 05/07/24 Jacque Ryder APRN, [place] [address] [place] [address] Nurse Practitioner Advanced Practice Nurse 09/23/22 Maeve Lopez APRN, [employer] [address] [place] [phone] Nurse Practitioner Cardiology 09/06/24 Blaine Ashby MD [address] [place] [address] Consulting Physician Pulmonary Disease 10/16/24 Chau Rush MD [address] [address] Consulting Physician Colon and Rectal Surgery 10/16/24 Francesco Junior MD [facility] [address] [place] [address] Consulting Physician Cardiology 01/03/25 Charles Miguel MD [address] [address] Consulting Physician Urology 03/12/25 documented as of this encounter
--- OUTSIDE RECORDS SUMMARY | 2025-05-18 13:56 | XMS_ITS | Encounter Summary ---
Author Organization [facility] Address [address] [place] [address] Phone Care Team Providers Care Surgical Technician Name Role Phone Shravan Og MD Primary Care Provider [phone] Godfrey Villarreal MD Unavailable Jacque Mathew APRN, T[place]MAN Unavailable Benny Mijares MD Primary Care Provider [phone] Maeve Lopez APRN, T[place]MAN Unavailable Blaine Ashby MD Unavailable Chau Rush MD Unavailable Francesco Junior MD Unavailable [phone] Charles Miguel MD Unavailable Reason for Visit * Reason Comments Medication Refill Encounter Details Date Type Department Care Team (Late st Contact Info) Description 11/13/2023 Refill [facility] - Internal Medicine - [address] [place] [address] Shravan Og MD [address] [place] [address] Medication Refill Social History Tobacco Use Types Packs/Day Years Used Date Smoking Tobacco: Every Day Cigarettes 0.5 20 Passive Smoke Exposure: Current Smokeless Tobacco: Former Comments:only used chew for about a year, quit chewing about 25 years ago Alcohol Use Standard Drinks/Week Comments Yes 6 (1 standard drink = 0.6 oz pur e alcohol) ONCE EVERY THREE WEEKS [facility] Utilities Answer Date Recorded In the past [...] often do you attend chur ch or quaker services? Never 08/29/2023 Do you belong to any clubs o r organizations such as christian groups, unions, fraternal or athletic groups, or [...] Total Score - Questions 1-9 0 06/2023 [facility] [place] of Occupat ional Health - Occupational Stress [...] place to sleep or slept in a intermediate (including now)? No 08/29/2023 Sexually Active Control [...] Office Visit Shravan Og MD [facility] 05/24/23 Office Visit Shravan Og MD [facility] 03/14/23 Office Visit Shravan Og MD [facility] Showing recent visits within past 365 days and meeting all other requirements Future Appointments Date Type Provider Dept 11/15/23 Appointment Shravan Og MD [facility] Showing future appointments within next 90 days [...] st Contact Info) Description 06/26/2025 2:45 PM BUSINESS AREA MANAGER Office Visit [facility] - Cardiology - [place] [address] [place] [address] Francesco Junior MD [address] [facility] [place]. [address] [place] [address] 07/24/2025 2:45 PM BUSINESS AREA MANAGER Office Visit [facility] - Family [facility] [address] [place] [address] Benny Mijares MD #[address] [address] documented as of this encounter Visit Diagnoses [...] documented as of this encounter Care Teams Surgical Technician Relationship Specialty Start Date End Date Shravan Og MD PCP - General Internal Medicine 05/27/20 02/12/24 Benny Mijares MD [address] [address] PCP - General Family Medicine 04/19/24 Godfrey Villarreal MD Consulting Physician Cardiovascular Disease - Cardiology 11/15/22 05/07/24 Jacque Ryder APRN, TANKMAN [address] [place] [address] Nurse Practitioner Advanced Practice Nurse 09/23/22 Maeve Lopez APRN, [place]MAN [address] [place] [address] Nurse Practitioner Cardiology 09/06/24 Blaine Ashby MD [address] [place] [address] Consulting Physician Pulmonary Disease 10/16/24 Chau Rush MD #[address] [address] Consulting Physician Colon and Rectal Surgery 10/16/24 Francesco Jnuior MD 2 [facility] [address] [address] Consulting Physician Cardiology 01/03/25 Charles Miguel MD [address] [address] Consulting Physician Urology 03/12/25 documented as of this encounter
--- OUTSIDE RECORDS SUMMARY | 2025-05-18 13:56 | XMS_ITS ---
Author Organization Unknown Address [address] [place] [phone] Phone Care Team Providers Care Supervisor Concrete [employer] Finishing Name Role Phone SASHA BRUNNER Attending Unavailable [...] 212 CVX Pneumococcal conjugate PCV20 , polysaccharide RPE315 conjugate, adjuvant, PF 12/26/2022 Completed 216 CVX Social History Type Status Start Date End Date Code Code Syst em Smoking History Unknown if ever smoked [address] Sex Male Vital Signs Vital Sign Value Unit [place] Value [place] Unit Date/Time Recent/Initial? Code Code System Body Mass Index 32.69 kg/m2 11/25/2024 09:52 Initial 19908 -5 LOINC Systolic Blood Pressure 144 mm[Hg] 11/25/2024 09:52 Initial 8480- 6 LOINC Diastolic Blood Pressure 94 mm[Hg] 11/25/2024 09:52 Initial 8462- 4 LOINC Body Surface Area 2.16 m2 11/25/2024 09:52 Initial 3140- 1 LOINC Height 172.720 0 cm 68.00 in 11/25/2024 09:52 Initial 8302- 2 [facility] O2 Saturation 98 % 2024 09:52 Initial 60796 -5 [facility] Pulse 58.0 /min 11/25/2024 09:52 Initial 8867- 4 [facility] Temperature 36.4 Sabine 97.5 F 11/26/19 09:52 Initial 8310- 5 [facility] Weight 97.52 kg 215.00 lbs 11/25/2024 09:52 Initial 55829 -7 [facility] Medications Medication Start Date End Date Route Frequency Dose Code Code System Medication Instructions Home Meds Atenolol 50MG Oral Tablet 07/04/2024 Unknown ORAL TWICE A DAY 50 MILLIGRAMS 754353 RxNorm TAKE 50 MILLIGRAMS ORAL TWICE A DAY Atorvastatin Calcium 40MG Oral Tablet 07/04/2024 Unknown ORAL AT BEDTIME 40 MILLIGRAMS 857617 RxNorm TAKE 40 MILLIGRAMS ORAL AT BEDTIME Citalopram 40MG Oral Tablet 07/04/2024 Unknown ORAL ONCE A DAY 40 MILLIGRAMS 662353 RxNorm TAKE 40 MILLIGRAMS ORAL ONCE A DAY Cyclobenzapri ne HCl 5MG Oral Tablet 07/04/2024 Unknown ORAL NEEDED 3 TIMES A DAY 10 MILLIGRAMS 462025 RxNorm TAKE 10 MILLIGRAMS ORAL NEEDED 3 TIMES A DAY Pantoprazole Sodium 40 MG Oral Tablet, Delayed Release 07/04/2024 Unknown ORAL ONCE A DAY 40 MG 270102 RxNorm TAKE 40 MG ORAL ONCE A DAY amLODIPine Besylate 5MG Oral Tablet 07/04/2024 Unknown ORAL ONCE A DAY 5 MILLIGRAMS 901666 RxNorm TAKE 5 MILLIGRAMS ORAL ONCE A DAY traZODone hydrochloride 50MG Oral Tablet 07/04/2024 Unknown ORAL AT BEDTIME 50 MILLIGRAMS 696699 RxNorm TAKE 50 MILLIGRAMS ORAL AT BEDTIME Albuterol Sulfate 0.09MG/1Actua tion Inhalation Suspension 07/22/2024 Unknown INHALATI ON NEEDED 1 unit(s) 7945106 RxNorm 1 EACH INHALATION NEEDED Aspirin 81MG Oral Tablet, Enteric Coated 09/30/2024 Unknown ORAL ONCE A DAY 81 MILLIGRAMS 648042 RxNorm TAKE 81 MILLIGRAMS ORAL ONCE A DAY Plavix 75MG Oral Tablet 09/30/2024 Unknown ORAL ONCE A DAY 75 MILLIGRAMS 718698 RxNorm TAKE 75 MILLIGRAMS ORAL ONCE A DAY HYDROcodone bitartrate-ac etaminophen 10MG-325MG Oral Tablet 10/28/2024 11/26/19 25 BY MOUTH NEEDED 3 TIMES A DAY 1 TABLET 082892 RxNorm TAKE 1 TABLET BY MOUTH NEEDED 3 TIMES A DAY FOR PAIN HYDROcodone bitartrate-ac etaminophen 10MG-325MG Oral Tablet 11/27/2024 12/27/19 25 BY MOUTH NEEDED 3 TIMES A DAY 1 TABLET 900952 RxNorm TAKE 1 TABLET BY MOUTH NEEDED 3 TIMES A DAY FOR PAIN HYDROcodone bitartrate-ac etaminophen 10MG-325MG Oral Tablet 12/26/2024 Unknown BY MOUTH NEEDED 3 TIMES A DAY 1 TABLET 956502 RxNorm TAKE 1 TABLET UP TO 2 [...] Code Code System GERD WITHOUT ESOPHAGITIS active 856543565 SNOMED-CT LOW BACK PAIN CO-OCCURRENT AND DUE TO BILATERAL SCIATICA active 27742825582210741 SNOM ED-CT NEUROPATHY active 192297620 SNOMED-CT DEGENERATIVE DISC DISEASE active 18131993 SNOMED-CT HERNIATED LUMBAR INTERVERTEBRAL DISC active 390720325 SNOMED-C T HERNIATED CERVICAL DISC active 018334 009 SNOMED-CT CHRONIC PAIN SYNDROME active 58244293 6 SNOMED-CT CHRONIC LOWER BACK PAIN active 527134 009 SNOMED-CT MYALGIA OF AUXILIARY MUSCLES, HEAD AND NECK active 28860898 SNOME D-CT Allergies and Adverse Reactions Allergy Substance Reaction Severity Start Date Concern Status Co de Code System No Known Drug Allergies Active 879073899 SNOMED-CT Plan of Treatment New Patient 07/04/2024 Epidural 07/22/2024 OR Epidural 07/22/2024 Epidural 07/22/2024 OR Epidural 07/22/2024 Encounters Encounter Diagnosis Start Date Code Code Sys tem Sacrococcygeal disorders, not elsewhere classified SNOMED-CT Personal Care Team Section Performer Name Performer Role Active Date Inactive Da te CHRISTIE WATTS PCP - Primary care physician CHRISTIE WATTS PCP - Primary care physician Progress Notes [facility] 11/25/2024 10:49 All Demographics Patient Name Age Sex Visit Number Admission Date/Time Attending Physician Date of Service Room and Bed Emergency Contact ENE HOOK 1965 59 years Male [id number] 11/25/2024 09:46 Brandon Marshall 11/25/2024 05-OP Pain [...] have a cardiac catheterization tomorrow Monday10/29/24. His kiln labourer said he cannot stop his blood thinners (Plavix) for 6 months. Discussed pausing any future INGA's until that time. We discussed proceeding with bilateral SI joint injections for SI joint pain. We discussed risks and benefits of the procedure. Patient wishes to proceed. Discussed reducing opioid dose and frequency following cardiac procedure. DAIRY FEED WORKER checked and patient offered Narcan. Date of [...]
--- OUTSIDE RECORDS SUMMARY | 2025-05-18 13:56 | XMS_ITS ---
Author Organization Unknown Address [address] [place] [phone] Phone Care Team Providers Care Bureau Director Name Role Phone SASHA BRUNNER Attending Unavailable [...] 212 CVX Pneumococcal conjugate PCV20 , polysaccharide [id number] conjugate, adjuvant, PF 12/26/2022 Completed 216 CVX Social History Type Status Start Date End Date Code Code Syst em Smoking History Unknown if ever smoked [address] Sex Male Vital Signs Vital Sign Value Unit [place] Value [place] Unit Date/Time Recent/Initial? Code Code System Body Mass Index 32.69 kg/m2 08/22/2024 10:19 Initial 24555 -5 LOINC Systolic Blood Pressure 132 mm[Hg] 08/22/2024 10:19 Initial 8480- 6 LOINC Diastolic Blood Pressure 84 mm[Hg] 08/22/2024 10:19 Initial 8462- 4 LOINC Body Surface Area 2.16 m2 08/22/2024 10:19 Initial 3140- 1 LOINC Height 172.720 0 cm 68.00 in 08/22/2024 10:19 Initial 8302- 2 [facility] O2 Saturation 95 % 2024 10:19 Initial 56007 -5 [facility] Pulse 58.0 /min 08/22/2024 10:19 Initial 8867- 4 [facility] Temperature 36.3 Sabine 97.3 F 08/23/19 25 10:19 Initial 8310- 5 [facility] Weight 97.52 kg 215.00 lbs 08/22/2024 10:19 Initial 95000 -7 [facility] Medications Medication Start Date End Date Route Frequency Dose Code Code System Medication Instructions Home Meds Atenolol 50MG Oral Tablet 07/04/2024 Unknown ORAL TWICE A DAY 50 MILLIGRAMS 604787 RxNorm TAKE 50 MILLIGRAMS ORAL TWICE A DAY Gabapentin 100MG Oral Capsule 07/04/2024 08/23/19 25 BY MOUTH THREE TIMES A DAY 1 CAPSULE 943500 RxNorm TAKE 1 CAPSULE BY MOUTH THREE TIMES A DAY FOR PAIN Atorvastatin Calcium 40MG Oral Tablet 07/04/2024 Unknown ORAL AT BEDTIME 40 MILLIGRAMS 931041 RxNorm TAKE 40 MILLIGRAMS ORAL AT BEDTIME Citalopram 40MG Oral Tablet 07/04/2024 Unknown ORAL ONCE A DAY 40 MILLIGRAMS 004648 RxNorm TAKE 40 MILLIGRAMS ORAL ONCE A DAY Cyclobenzapri ne HCl 5MG Oral Tablet 07/04/2024 Unknown ORAL NEEDED 3 TIMES A DAY 10 MILLIGRAMS 192893 RxNorm TAKE 10 MILLIGRAMS ORAL NEEDED 3 TIMES A DAY Pantoprazole Sodium 40 MG Oral Tablet, Delayed Release 07/04/2024 Unknown ORAL ONCE A DAY 40 MG 600243 RxNorm TAKE 40 MG ORAL ONCE A DAY amLODIPine Besylate 5MG Oral Tablet 07/04/2024 Unknown ORAL ONCE A DAY 5 MILLIGRAMS 985842 RxNorm TAKE 5 MILLIGRAMS ORAL ONCE A DAY traZODone hydrochloride 50MG Oral Tablet 07/04/2024 Unknown ORAL AT BEDTIME 50 MILLIGRAMS 055560 RxNorm TAKE 50 MILLIGRAMS ORAL AT BEDTIME Albuterol Sulfate 0.09MG/1Actua tion Inhalation Suspension 07/22/2024 Unknown INHALATI ON NEEDED 1 unit(s) 5351803 RxNorm 1 EACH INHALATION NEEDED HYDROcodone bitartrate-ac etaminophen 10MG-325MG Oral Tablet 07/26/2024 08/23/19 25 BY MOUTH NEEDED 3 TIMES A DAY 1 TABLET 512820 RxNorm TAKE 1 TABLET BY MOUTH NEEDED 3 TIMES A DAY FOR PAIN HYDROcodone bitartrate-ac etaminophen 10MG-325MG Oral Tablet 07/26/2024 08/23/19 25 BY MOUTH ONCE A DAY 1 TABLET 582459 RxNorm TAKE 1 TABLET BY MOUTH ONCE A DAY FOR PAIN Gabapentin 100MG Oral Capsule 08/22/2024 09/24/19 25 BY MOUTH THREE TIMES A DAY 1 CAPSULE 724030 RxNorm TAKE 1 CAPSULE BY MOUTH THREE TIMES A DAY FOR PAIN HYDROcodone bitartrate-ac etaminophen 10MG-325MG Oral Tablet 08/23/2024 09/23/19 25 BY MOUTH NEEDED 3 TIMES A DAY 1 TABLET 021424 RxNorm TAKE 1 TABLET BY MOUTH NEEDED 3 TIMES A DAY FOR PAIN HYDROcodone bitartrate-ac etaminophen 10MG-325MG Oral Tablet 08/28/2024 08/24/19 25 BY MOUTH ONCE A DAY 1 TABLET 026432 RxNorm TAKE 1 TABLET BY MOUTH ONCE A DAY FOR PAIN Aspirin 81MG Oral Tablet, Enteric Coated 09/30/2024 Unknown ORAL ONCE A DAY 81 MILLIGRAMS 824442 RxNorm TAKE 81 MILLIGRAMS ORAL ONCE A DAY HYDROcodone bitartrate-ac etaminophen 10MG-325MG Oral Tablet 09/30/2024 10/29/19 25 BY MOUTH NEEDED 3 TIMES A DAY 1 TABLET 137041 RxNorm TAKE 1 TABLET BY MOUTH NEEDED 3 TIMES A DAY Plavix 75MG Oral Tablet 09/30/2024 Unknown ORAL ONCE A DAY 75 MILLIGRAMS 768906 RxNorm TAKE 75 MILLIGRAMS ORAL ONCE A DAY HYDROcodone bitartrate-ac etaminophen 10MG-325MG Oral Tablet 10/28/2024 11/26/19 25 BY MOUTH NEEDED 3 TIMES A DAY 1 TABLET 235432 RxNorm TAKE 1 TABLET BY MOUTH NEEDED 3 TIMES A DAY FOR PAIN HYDROcodone bitartrate-ac etaminophen 10MG-325MG Oral Tablet 11/27/2024 12/27/19 25 BY MOUTH NEEDED 3 TIMES A DAY 1 TABLET 027870 RxNorm TAKE 1 TABLET BY MOUTH NEEDED 3 TIMES A DAY FOR PAIN HYDROcodone bitartrate-ac etaminophen 10MG-325MG Oral Tablet 12/26/2024 Unknown BY MOUTH NEEDED 3 TIMES A DAY 1 TABLET 863107 RxNorm TAKE 1 TABLET UP TO 2 [...] Code Code System GERD WITHOUT ESOPHAGITIS active 667666226 SNOMED-CT LOW BACK PAIN CO-OCCURRENT AND DUE TO BILATERAL SCIATICA active 50829290107336409 SNOM ED-CT NEUROPATHY active 322723984 SNOMED-CT DEGENERATIVE DISC DISEASE active 05272911 SNOMED-CT HERNIATED LUMBAR INTERVERTEBRAL DISC active 263097544 SNOMED-C T HERNIATED CERVICAL DISC active 712378 009 SNOMED-CT CHRONIC PAIN SYNDROME active 52936955 6 SNOMED-CT CHRONIC LOWER BACK PAIN active 354125 009 SNOMED-CT MYALGIA OF AUXILIARY MUSCLES, HEAD AND NECK active 19590485 SNOME D-CT Allergies and Adverse Reactions Allergy Substance Reaction Severity Start Date Concern Status Co de Code System No Known Drug Allergies Active 214633433 SNOMED-CT Plan of Treatment New Patient 07/04/2024 Epidural 07/22/2024 OR Epidural 07/22/2024 Epidural 07/22/2024 OR Epidural 07/22/2024 Encounters Encounter Diagnosis Start Date Code Code Sys tem Sacrococcygeal disorders, not elsewhere classified SNOMED-CT Personal Care Team Section Performer Name Performer Role Active Date Inactive CHRISTIE Aburto PCP - Primary care physician CHRISTIE WATTS PCP - Primary care physician Progress Notes [facility] 09/19/2024 10:53 Demographics Basic Patient Name Age Sex JOSE HOOK 1965 59 years Male Date/Time: 09.17.2024 & 1005pm Multiple Calls: yes - he has no VM set up - hard to reach. Caller Name: Jose Phone Number: in chart. Patient unable to attend OR on 09.16; as he was not available / not picking up phone for the Pre-op phone call. Called pt to r/e-schedule on 09.30.2024. Pt agreeable. Pt would like to consider treatment for Cervical INGA, when he is due again. (no sedation) In the mean time patient would like to proceed with care plan of SI joint injection. [facility] 10/03/2024 09:02 Demographics Basic Patient Name Age Sex JOSE HOOK 1965 59 years Male Date/Time: 09.19.24 & 09.20.2024 Multiple Calls: Yes Caller Name: Jose Abreu Pt called to follow up. He called many times, and no VM, just called until he spoke to Clinic Staff. Jose notified this staff he looked it up in his records and Tramadol did not work for him, 11 years ago. the provider at the time, even doubled it and that did not yield pain relief. Brandon - not sure why he is following up about tramadol. Pt reports he is going for a cardiac cath. on september 26. they will go in through the wrist, per Jose. He scheduled for a procedure in the OR under [facility] on 09.30.2024, for SI joint injections. [facility] 09.27.2024 Shalom called to report he had a cardiac cath performed yesterday, 09/26/2024. Thru the wrist. Feeling a little sore in arm and chest today, per Shalom. 1 stent placed and blood thinner (plavix) started. SI joint bi-lat injections scheduled for 09/30/2024. OR wanted to confirm this is an appropriate timeline for this patient's procedure. please advise, back to this staff. Pain Clinic Staff re-assured Shalom if the procedure is not performed on this Monday, we would get in him for treatment right away. in the very near future. Shalom was agreeable. ~~~~~~~~~~~~~~ 5.5.2024 @ 1300 pt here for OR today; was notified would need cardiac clearance to be seen for procedure in O.R. Pt aware and agreeable. seen Francesco Junior MD Blind Installer at [facility]. [phone] Shalom is unsure if this is his cardiology Dr, or just a Cardiac surgeon he saw. --- have reached out to this office, for notes / clearance. wants 28 day med check and to re-assess the care plan. prefers cervical treatment at this time, instead of SI joint injections. appt this afternoon. [facility] 08/22/2024 10:59 All Demographics Patient Name Age Sex Visit Number Admission Date/Time Attending Physician Date of Service Room and Bed Emergency Contact MILADYSJOSE 1965 58 years Male [id number] 08/22/2024 10:00 Brandon Marshall 08/22/2024 04-OP Pain Management Follow Up Vital Signs: Today Date/Time BP (mm/Hg) BP Position/Site MAP (mm/Hg) Heart Rate Pulse Site Resp Temp (C) Temp (F) SPO2% O2 L/min FiO2 EtCO2 (mm/Hg) O2 Device Blood Sugar Pain Score Height (cm) Height (in) Weight (kg) Weight (lbs/ozs) Scale BMI BSA Head Cir (cm) 08/22/2024 10:19 132/84 Sitting/Left Arm 100 58 Pulse Ox 36.3 Tympanic 97.3 Tympanic 95 % Room Air 21% 5 172.7 cm 68 in 97.52 kg 215.0 Stated 32.69 2.16 Chief Complaint: Cervical radiculopathy History of Present [...] improved since last screening No previous Screening Patient Declined Screening X Score has not changed significantly since last [...] foraminal stenosis at C5-6. Date of appointment: 08/22/24 Discussion: Patient stated he had great relief for 3 weeks. He states he still has about 50% relief when compared to pain prior to cervical inga. Patient complains of low back pain today. Specifically of the SI joints. We discussed risks and benefits of SI joint injections. Patient wishes to proceed. Radiology imaging reviewed at appointment: MRI from 06/05/23 reviewed Radiology: Imaging reviewed with patient Pain Treatment History: Conservative Measures Tried and Failed: PT, heat/ice, rest Medications Trialed: opioids, gabapentin, muscle relaxers, anti depressants, nsaids, tylenol Previous Interventional Pain Procedures: yes - request for records pending Plan Bilateral SI Joint injections - august Gabapentin 100 mg 3 times a day Hydrocodone 10/325 3 times daily PRN august at injection refill pain meds Problem List GERD without esophagitis Low back pain co-occurrent and due to bilateral sciatica Neuropathy Degenerative disc disease Herniated lumbar intervertebral disc Herniated cervical disc Chronic pain syndrome Surgery List History of tonsillectomy, Surgery on nasal sinus, Smoking Status List: No Social History Available Allergy List No Known Drug Allergies, Medication Home Meds: Dose and Freq Medication Dosage Frequency Gabapentin 100MG Oral Capsule 1 CAPSULE THREE TIMES A DAY Atenolol 50MG Oral Tablet 50 MILLIGRAMS TWICE A DAY Atorvastatin Calcium 40MG Oral Tablet 40 MILLIGRAMS AT BEDTIME Citalopram 40MG Oral Tablet 40 MILLIGRAMS ONCE A DAY amLODIPine Besylate 5MG Oral Tablet 5 MILLIGRAMS ONCE A DAY HYDROcodone bitartrate-acetaminophen 10MG-325MG Oral Tablet 1 TABLET ONCE A DAY HYDROcodone bitartrate-acetaminophen 10MG-325MG Oral Tablet 1 TABLET NEEDED 3 TIMES A DAY Albuterol Sulfate 0.09MG/1Actuation Inhalation Suspension 1 EACH NEEDED traZODone hydrochloride 50MG Oral Tablet 50 MILLIGRAMS AT BEDTIME Cyclobenzaprine HCl 5MG Oral Tablet 10 MILLIGRAMS NEEDED 3 TIMES A DAY Pantoprazole Sodium 40 MG Oral Tablet, Delayed Release 40 MG ONCE A DAY
--- OUTSIDE RECORDS SUMMARY | 2025-05-18 13:56 | XMS_ITS | Encounter Summary ---
Author Organization [facility] Address [address] [place] [address] Phone Care Team Providers Care Polisher Aluminum Name Role Phone Jacque Ryder Norma PICKETT, SKIN CARVER Unavailable Benny Mijares MD Primary Care Provider [phone] Maeve Lopez APRN, SKIN CARVER Unavailable Blaine Ashby MD Unavailable Chau Rush MD Unavailable Francesco Junior MD Unavailable [phone] Charles Miguel MD Unavailable Reason for Visit * Reason Comments Medication Refill Encounter Details Date Type Department Care Team (Late st Contact Info) Description 07/30/2024 [facility]ill [facility] - [facility] - [place] [address] [place] [address] Shravan Og MD [address] [place] [address] Medication Refill Social History Tobacco Use Types Packs/Day Years Used Date Smoking Tobacco: Every Day Cigarettes 0.5 20 Passive Smoke Exposure: Current Smokeless Tobacco: Former Comments:only used chew for about a year, quit chewing about 25 years ago Alcohol Use Standard Drinks/Week Comments Yes 6 (1 standard drink = 0.6 oz pur e alcohol) ONCE EVERY THREE WEEKS [facility] Utilities Answer Date Recorded In the past [...] often do you attend chur ch or congregational services? Never 08/29/2023 Do you belong to any clubs o r organizations such as taoism groups, unions, fraternal or athletic groups, or [...] Total Score - Questions 1-9 0 04/28 [facility] [place] of Occupat ional Health - Occupational Stress [...] place to sleep or slept in a fdc (including now)? No 08/29/2023 Sexually Active Control [...] st Contact Info) Description 06/26/2025 2:45 PM POLICE BOOKING OFFICER Office Visit [facility] - Cardiology - [place] [address] [place] [address] Francesco Junior MD [address] [facility]. [address] [place] [address] [phone] 07/24/2025 2:45 PM POLICE BOOKING OFFICER Office Visit [facility] - Family Medicine - [place] [address] [place] [address] Benny Mijares MD [address] [address] documented as of this encounter Visit Diagnoses [...] Time PHQ-9 Depression Total Score: 0 05/13/20 24 1:23 PM POLICE BOOKING OFFICER documented as of this encounter Care Teams Polisher Aluminum Relationship Specialty Start Date End Date Benny Mijares MD [address] [address] PCP - General Family Medicine 04/19/24 Jacque Ryder APRN, SKIN CARVER [address] [place] [address] Nurse Practitioner Advanced Practice Nurse 09/23/22 Maeve Lopez APRN, SKIN CARVER [address] [place] [phone] Nurse Practitioner Cardiology 09/06/24 Blaine Ashby MD [address] [place] [phone] Consulting Physician Pulmonary Disease 10/16/24 Chau Rush MD #[address] [address] Consulting Physician Colon and Rectal Surgery 10/16/24 Francesco Junior MD [address] [address] Consulting Physician Cardiology 01/03/25 Charles Miguel MD [address] [address] Consulting Physician Urology 03/12/25 documented as of this encounter
--- OUTSIDE RECORDS SUMMARY | 2025-05-18 13:56 | XMS_ITS ---
Author Organization Unknown Address [address] [place] [phone] Phone Care Team Providers Care Illuminating Engineer Name Role Phone SASHA BRUNNER Attending Unavailable [...] 212 CVX Pneumococcal conjugate PCV20 , polysaccharide RPR346 conjugate, adjuvant, PF 12/26/2022 Completed 216 CVX Social History Type Status Start Date End Date Code Code Syst em Smoking History Unknown if ever smoked [address] Sex Male Vital Signs Vital Sign Value Unit [place] Value [place] Unit Date/Time Recent/Initial? Code Code System Body Mass Index 32.69 kg/m2 12/26/2024 15:20 Initial 22640 -5 LOINC Systolic Blood Pressure 139 mm[Hg] 12/26/2024 15:20 Initial 8480- 6 LOINC Diastolic Blood Pressure 84 mm[Hg] 12/26/2024 15:20 Initial 8462- 4 LOINC Body Surface Area 2.16 m2 12/26/2024 15:20 Initial 3140- 1 LOINC Height 172.720 0 cm 68.00 in 12/26/2024 15:20 Initial 8302- 2 [facility] O2 Saturation 97 % 2024 15:20 Initial 96813 -5 [facility] Pulse 64.0 /min 12/26/2024 15:20 Initial 8867- 4 [facility] Temperature 36.2 Sabine 97.1 F 12/27/19 15:20 Initial 8310- 5 [facility] Weight 97.52 kg 215.00 lbs 12/26/2024 15:20 Initial 78413 -7 [facility] Medications Medication Start Date End Date Route Frequency Dose Code Code System Medication Instructions Home Meds Atenolol 50MG Oral Tablet 07/04/2024 Unknown ORAL TWICE A DAY 50 MILLIGRAMS 103976 RxNorm TAKE 50 MILLIGRAMS ORAL TWICE A DAY Atorvastatin Calcium 40MG Oral Tablet 07/04/2024 Unknown ORAL AT BEDTIME 40 MILLIGRAMS 815778 RxNorm TAKE 40 MILLIGRAMS ORAL AT BEDTIME Citalopram 40MG Oral Tablet 07/04/2024 Unknown ORAL ONCE A DAY 40 MILLIGRAMS 873272 RxNorm TAKE 40 MILLIGRAMS ORAL ONCE A DAY Cyclobenzapri ne HCl 5MG Oral Tablet 07/04/2024 Unknown ORAL NEEDED 3 TIMES A DAY 10 MILLIGRAMS 046487 RxNorm TAKE 10 MILLIGRAMS ORAL NEEDED 3 TIMES A DAY Pantoprazole Sodium 40 MG Oral Tablet, Delayed Release 07/04/2024 Unknown ORAL ONCE A DAY 40 MG 271074 RxNorm TAKE 40 MG ORAL ONCE A DAY amLODIPine Besylate 5MG Oral Tablet 07/04/2024 Unknown ORAL ONCE A DAY 5 MILLIGRAMS 735352 RxNorm TAKE 5 MILLIGRAMS ORAL ONCE A DAY traZODone hydrochloride 50MG Oral Tablet 07/04/2024 Unknown ORAL AT BEDTIME 50 MILLIGRAMS 311002 RxNorm TAKE 50 MILLIGRAMS ORAL AT BEDTIME Albuterol Sulfate 0.09MG/1Actua tion Inhalation Suspension 07/22/2024 Unknown INHALATI ON NEEDED 1 unit(s) 1823334 RxNorm 1 EACH INHALATION NEEDED Aspirin 81MG Oral Tablet, Enteric Coated 09/30/2024 Unknown ORAL ONCE A DAY 81 MILLIGRAMS 406274 RxNorm TAKE 81 MILLIGRAMS ORAL ONCE A DAY Plavix 75MG Oral Tablet 09/30/2024 Unknown ORAL ONCE A DAY 75 MILLIGRAMS 100177 RxNorm TAKE 75 MILLIGRAMS ORAL ONCE A DAY HYDROcodone bitartrate-ac etaminophen 10MG-325MG Oral Tablet 11/27/2024 12/27/19 25 BY MOUTH NEEDED 3 TIMES A DAY 1 TABLET 519410 RxNorm TAKE 1 TABLET BY MOUTH NEEDED 3 TIMES A DAY FOR PAIN HYDROcodone bitartrate-ac etaminophen 10MG-325MG Oral Tablet 12/26/2024 Unknown BY MOUTH NEEDED 3 TIMES A DAY 1 TABLET 354102 RxNorm TAKE 1 TABLET UP TO 2 [...] Date Status Code Code Syste m INJECTION SINGLE/PUBLIC TRANSIT TROLLEY DRIVER TRIGGER POINT 3/> MUSCLES 12/26/2024 completed CPT Problems Problem Start Date Resolved Date Status Code Code System GERD WITHOUT ESOPHAGITIS active 766628940 SNOMED-CT LOW BACK PAIN CO-OCCURRENT AND DUE TO BILATERAL SCIATICA active 49193429546985937 SNOM ED-CT NEUROPATHY active 637988174 SNOMED-CT DEGENERATIVE DISC DISEASE active 68575458 SNOMED-CT HERNIATED LUMBAR INTERVERTEBRAL DISC active 821362473 SNOMED-C T HERNIATED CERVICAL DISC active 541831 009 SNOMED-CT CHRONIC PAIN SYNDROME active 35600472 6 SNOMED-CT CHRONIC LOWER BACK PAIN active 875720 009 SNOMED-CT MYALGIA OF AUXILIARY MUSCLES, HEAD AND NECK active 72037117 SNOME D-CT Allergies and Adverse Reactions Allergy Substance Reaction Severity Start Date Concern Status Co de Code System No Known Drug Allergies Active 043371772 SNOMED-CT Plan of Treatment New Patient 07/04/2024 Epidural 07/22/2024 OR Epidural 07/22/2024 Epidural 07/22/2024 OR Epidural 07/22/2024 Encounters Encounter Diagnosis Start Date Code Code Sys tem Myositis, unspecified 12/26/2024 SNOMED -CT Personal Care Team Section Performer Name Performer Role Active Date Inactive Da peter CHRISTIE WATTS PCP - Primary care physician CHRISTIE WATTS PCP - Primary care physician Progress Notes [facility] 12/26/2024 16:03 All Demographics Patient Name Age Sex Visit Number Admission Date/Time Attending Physician Date of Service Room and Bed Emergency Contact ENE GUAMAN 1965 59 years Male [id number] 12/26/2024 15:07 Brandon Marshall 12/26/2024 15-OP Pain Management Follow Up [...] have a cardiac catheterization tomorrow Monday10/29/24. His diagrammer and seamer said he cannot stop his blood thinners (Plavix) for 6 months. Discussed pausing any future INGA's until that time. We discussed proceeding with bilateral SI joint injections for SI joint pain. We discussed risks and benefits of the procedure. Patient wishes to proceed. Discussed reducing opioid dose and frequency following cardiac procedure. WEB PORTAL DEVELOPER checked and patient offered Narcan. Date of [...] scapulae Provider: EDSON Arcos Pre-Operative Diagnosis: Myositis 63982 - 3-4 muscle groups Post-Operative Diagnosis: Same [...] AIDE Arcos CRNA-Gordon ROPIVACAINE HCL INJECTION 0.5% [facility]: [id number] LOT [id number] EXP 2025-05 LIDOCAINE 2% [facility] [phone] LOT [id number] EXP DEXAMETHASONE SODIUM 10MG/ML [facility] [phone] LOT [id number] EXP Radiology imaging reviewed at appointment: MRI [...] 1 TABLET NEEDED 3 TIMES A DAY [facility] 03/10/2025 16:19 Demographics Basic Patient Name [...] Voicemail (VM) received from the pharmacist at [facility] in [place] r/t concerns for Pamela current Dresher order Called Pharmacy back and spoke to pharmacist Chika. Pharmacist reports a medication order was received today, from patients PCP Dr. Watts, for Dresher 10mg 90# for 30days, the patient sig, [...]
--- OUTSIDE RECORDS SUMMARY | 2025-05-18 13:56 | XMS_ITS | Encounter Summary ---
Author Organization [facility] Address [address] [place] [address] Phone Care Team Providers Care Payroll Administrator Name Role Phone Jacque Ryder Norma PICKETT, ACCOUNTS PAYABLE MANAGER Unavailable Benny Mijares MD Primary Care Provider [phone] Maeve Lopez APRN, ACCOUNTS PAYABLE MANAGER Unavailable Blaine Ashby MD Unavailable Chau Rush MD Unavailable Francesco Junior MD Unavailable [phone] Charles Miguel MD Unavailable Reason for Visit * Reason Comments Medication Refill Encounter Details Date Type Department Care Team (Late st Contact Info) Description 06/13/2024 Refill [facility] - Internal Medicine - [place] [address] [place] [address] Shravan Og MD [address] [place] [address] Medication Refill Social History Tobacco Use Types Packs/Day Years Used Date Smoking Tobacco: Every Day Cigarettes 0.5 20 Passive Smoke Exposure: Current Smokeless Tobacco: Former Comments:only used chew for about a year, quit chewing about 25 years ago Alcohol Use Standard Drinks/Week Comments Yes 6 (1 standard drink = 0.6 oz pur e alcohol) ONCE EVERY THREE WEEKS [facility] Utilities Answer Date Recorded In the [...] often do you attend chur ch or sabianism services? Never 08/29/2023 Do you belong to [...] Total Score - Questions 1-9 0 04/28 [facility] [place] of Occupat ional Health - Occupational Stress [...] place to sleep or slept in a mcfp (including now)? No 08/29/2023 Sexually Active Control [...] st Contact Info) Description 06/26/2025 2:45 PM MINE ENVIRONMENTAL ENGINEER Office Visit [facility] - Cardiology - [place] [address] [place] [phone] Francesco Junior MD [address] [facility] [address] [address] [facility]. [address] [place] [address] [phone] 07/24/2025 2:45 PM MINE ENVIRONMENTAL ENGINEER Office Visit [facility] - Family Medicine - [place] [address] [place] [phone] Benny Mijares MD [address] [address] documented as of this encounter Visit Diagnoses [...] Total Score: 0 05/13/20 24 1:23 PM MINE ENVIRONMENTAL ENGINEER documented as of this encounter Care Teams Payroll Administrator Relationship Specialty Start Date End Date Benny Mijares MD #[address] [address] PCP - General Family Medicine 04/19/24 Jacque Ryder APRN, ACCOUNTS PAYABLE MANAGER [address] [place] [address] Nurse Practitioner Advanced Practice Nurse 09/23/22 Maeve Lopez APRN, ACCOUNTS PAYABLE MANAGER [address] [place] [phone] Nurse Practitioner Cardiology 09/06/24 Blaine Ashby MD [address] [place] [phone] Consulting Physician Pulmonary Disease 10/16/24 Chau Rush MD #[address] [address] Consulting Physician Colon and Rectal Surgery 10/16/24 Francesco Junior MD [address] [address] Consulting Physician Cardiology 01/03/25 Charles Miguel MD [address] [address] Consulting Physician Urology 03/12/25 documented as of this encounter
--- OUTSIDE RECORDS SUMMARY | 2025-05-18 13:56 | XMS_ITS | Encounter Summary ---
Author Organization [facility] Address [address] [place] [address] Phone Care Team Providers Care Epic [facility] Name Role Phone Jacque Ryder NIEVES, FISCAL ECONOMIST Unavailable Benny Mijares MD Primary Care Provider [phone] Maeve Lopez APRN, FISCAL ECONOMIST Unavailable Blaine Ashby MD Unavailable Chau Rush MD Unavailable Francesco Junior MD Unavailable [phone] Charles Miguel MD Unavailable Reason for Visit * Reason Onset Date Comments Advice Only 02/21/2025 Medication Management 02/21/2025 Referral 02/21/2025 Encounter Details Date Type Department Care Team (Late st Contact Info) Description 02/21/2025 [facility]phone [facility] [address] [place] [id number] Benny Miajres MD [address] [address] Advice Only; Medication Management; Referral Social History Tobacco Use Types Packs/Day Years Used Date Smoking Tobacco: Every Day Cigarettes 1 42 Started: 1983 Passive Smoke Exposure: Current Smokeless Tobacco: Former Chew Quit: 1989 Alcohol Use Standard Drinks/Week Comments Yes 1 (1 standard drink = 0.6 oz pur e alcohol) once a month 6-7 beers seldom [facility] Utilities Answer Date Recorded In the [...] week 08/29/2023 How often do you attend [facility] ch or christianity services? Never 08/29/2023 Do you belong to any clubs o r organizations such as denominational groups, unions, fraternal or athletic groups, or [...] Recorded Total Score - Questions 1-9 0 09/0 12/2024 [facility] [place] of Occupat ional Health - Occupational Stress [...] on file documented as of this encounter Functional Status * BP Answer Date of Assessment Author 101/67 02/21/2025 1:10 PM CDT Sommer Castro RN * Temp Answer Date of Assessment Author 97.8 02/21/2025 1:10 PM CDT Sommer Castro RN * Pulse Answer Date of Assessment Author 70 02/21/2025 1:10 PM CDT Sommer Castro RN * Resp Answer Date of Assessment Author 16 02/21/2025 1:10 PM CDT Sommer Castro RN * SpO2 Answer Date of Assessment Author 98 02/21/2025 1:10 PM CDT Sommer Castro RN * Question Answer Date of Assessment Author Has the patient fallen twice in the past year without injury or once in the past year with injury? No 02/21/2025 2:00 PM CDT Kasandra Castro RN Does the patient report or d o you observe difficulty in gait or balance? No 02/21/2025 2:00 PM SASCHAT Kasandra Castro RN documented as of this encounter Mental Status * BP Answer Entry Date Author 101/67 02/21/2025 1:10 PM CDT Sommer Castro RN * Temp Answer Entry Date Author 97.8 02/21/2025 1:10 PM CDT Sommer Castro RN * Pulse Answer Entry Date Author 70 02/21/2025 1:10 PM CDT Sommer Castro RN * SpO2 Answer Entry Date Author 98 02/21/2025 1:10 PM SASCHAT Sommer Castro RN * Question Answer Entry Date Author Has the patient fallen twice in the past year without injury or once in the past year with injury? No 02/21/2025 2:00 PM CDT Kasandra Castro RN Does the patient report or d o you observe difficulty in gait or balance? No 02/21/2025 2:00 PM SASCHAT Kasandra Castro RN documented in this encounter Miscellaneous Notes * Telephone Encounter - Benny Mijares MD - 02/24/2025 10:10 AM CDT Yes, I put in a new Cardio referral for him to see Dr. Cuellar at [facility]. Thanks! * Telephone Encounter - Bogdan Hough RN - 02/24/2025 9:16 AM CDT Situation: Follow-up Background: Patient contacting PCP office. Assessment: Patient calling to check status of medication refill. This RN informed patient that it was sent to pharmacy on 02/21/2025. Patient verbalized understanding. Patient did request a second opinion for a different cardiology office about the blockage in his arteries, and asking if Dr. Benny Mijares MD will put in a cardiology referral to a different office. Recommendation: Please advise. Encounter routed to provider to notify. * Telephone Encounter - Jamilah Cueva RN - 02/22/2025 5:15 PM CDT Looks like it was sent to pharmacy yesterday: E-Prescribing Status: Receipt confirmed by pharmacy (02/21/2025 10:48 PM CDT) * Telephone Encounter - Gloria Miller - 02/21/2025 3:51 PM CDT Please call Jose (relationship to patient self) back at primary phone number [phone] regarding above referenced patient. Secondary phone number is na. Call is concerning Shalom would like a call back from the office directly in regards to getting his medication refilled. He states that he is completely out and is afraid that he wont get it before this weekend. HYDROcodone-acetaminophen (NORCO) 10-325 MG Tablet Patient's PCP is Benny Mijares MD. Thank you. documented in this encounter Plan of Treatment Upcoming Encounters Date Type Department Care Team (Late st Contact Info) Description 06/26/2025 2:45 PM CONTENT MANAGER Office Visit [facility] - Cardiology - [place] [address] [place] [phone] Francesco Junior MD [address] [facility] [facility] [address] [place] [address] 07/24/2025 2:45 PM CONTENT MANAGER [facility] Visit [facility] - Family Medicine - [place] [address] [place] [address] Benny Mijares MD #2 [facility] [address] [place] [address] documented as of this encounter Visit Diagnoses Not on filedocumented in this encounter Additional Health Concerns Assessment Noted Time PHQ-9 Depression Total Score: 0 02/04/20 11:14 AM CDT documented as of this encounter Care Teams Epic [facility] Relationship Specialty Start Date End Date Benny Mijares MD #2 [facility] [address] [place] [address] PCP - General Family Medicine 04/19/24 Jacque Ryder APRN, FISCAL ECONOMIST [address] [place] [address] Nurse Practitioner Advanced Practice Nurse 09/23/22 Maeve Lopez PRODUCTION SPECIALIST, FISCAL ECONOMIST [address] [place] [phone] Nurse Practitioner Cardiology 09/06/24 Blaine Ashby MD #2 [place] [phone] Consulting Physician Pulmonary Disease 10/16/24 Chau Rush MD #[address] [address] Consulting Physician Colon and Rectal Surgery 10/16/24 Francesco Junior MD 2 [facility] [address] [address] Consulting Physician Cardiology 01/03/25 Charles Miguel MD #[address] [address] Consulting Physician Urology 03/12/25 documented as of this encounter
--- OUTSIDE RECORDS SUMMARY | 2025-05-18 13:56 | XMS_ITS | Clinical Summary ---
Author Organization [facility] Address [address] [place] [address] Care Team Providers Care Golf Technician Name Role Phone Mann Mijares MD Primary Care Provider [phone] Allergies No known active allergies Medications methocarbamol (ROBAXIN-750) 750 mg tablet take 1 tablet by oral route every 4 hours 0 0 03/03/20 16 Active Additional Information Patient not taking.Reported on 03/04/2025 HYDROcodone-francy taminophen (VICODIN) 5-300 mg per tablet take 1 tablet by oral route every 4 - 6 hours as needed for pain 0 0 03/03/20 16 Active Additional Information Patient taking differently: 2 tablet oral Every 4 hours PRN, Reported on 03/04/2025 atorvastatin (LIPITOR) 10 mg tablet take 1 tablet by oral route every day 0 0 03/03/20 16 Active Additional Information Patient taking differently: 20 mg oral Daily, Reported on 03/04/2025 gabapentin (NEURONTIN) 800 mg tablet take 1 tablet by oral route 3 times every day 0 0 03/03/20 16 Active Additional Information Patient taking differently:800 mgContinuous PRN, Reported on 03/04/2025 citalopram (CeleXA) 20 mg tablet take 1 tablet by oral route every day 0 0 03/03/20 16 Active atenolol (TENORMIN) 25 mg tablet take 1 tablet by oral route every day 0 0 03/03/20 16 Active Additional Information Patient taking differently: 50 mg oral Daily, Reported on 03/04/2025 omeprazole (PriLOSEC) 20 mg capsule take 1 capsule by oral route every day before a meal 0 0 03/03/20 16 Active Additional Information Patient not taking.Reported on 03/04/2025 diazePAM (VALIUM) 5 mg tablet take 1 tablet by oral route 2 times every day 0 0 03/03/20 16 Active Additional Information Patient not taking.Reported on 03/04/2025 methylPREDNISol one (MEDROL DOSEPACK) 4 mg tablet take as directed by Oral route 1 0 04/15/20 16 Active Additional Information Patient not taking.Reported on 03/04/2025 cyclobenzaprine (FLEXERIL) 10 mg tablet take 1 tablet by oral route 3 times every day prn 30 1 04/15/20 16 Active Additional Information Patient taking differently:10 mg2 times daily PRN, muscle spasms, Reported on 03/04/2025 mupirocin (BACTROBAN) 2 % ointment Apply topically 3 (three) times a day 22 g 12/02/19 19 Active Additional Information Patient not taking.Reported on 03/04/2025 ibuprofen (ADVIL,MOTRIN) 800 mg tablet Take 1 tablet (800 mg total) by mouth 3 (three) times a day 21 tablet 12/02/19 19 Active Additional Information Patient taking differently:800 mg oralContinuous PRN, Reported on 03/04/2025 oxyCODONE-aceta minophen (PERCOCET) 10-325 mg per tabletIndicatio ns:Pain Take one tablet every 12 hours as needed for pain. 10 tablet 01/31/20 19 Active Additional Information Patient not taking.Reported on 03/04/2025 amLODIPine (NORVASC) 5 mg tablet Take 1 tablet (5 mg total) by mouth every morning Active clopidogreL (PLAVIX) 75 mg tablet Take 1 tablet (75 mg total) by mouth daily 09/28/19 25 Active aspirin 81 mg chewable tablet Take 1 tablet (81 mg total) by mouth daily 09/28/19 25 Active albuterol HFA (PROVENTIL HFA,VENTOLIN HFA,PROAIR HFA) 90 mcg/actuation inhaler Inhale 1-2 puffs every 6 (six) hours as needed 01/25/20 25 Active docusate sodium (COLACE) 100 mg capsule Take 1 capsule (100 mg total) by mouth 2 (two) times a day 02/12/20 25 Active furosemide (LASIX) 20 mg tablet Take 1 tablet (20 mg total) by mouth daily as needed 03/14/20 23 Active isosorbide mononitrate ER (IMDUR) 30 mg 24 hr tablet Take 1 tablet (30 mg total) by mouth gelatin powder mixer before breakfast 02/21/[address] (PROTONIX) 40 mg EC tablet Take 1 tablet (40 mg total) by mouth daily 12/31/19 25 Active traZODone (DESYREL) 50 mg tablet Take 1 tablet (50 mg total) by mouth daily as needed 07/14/19 23 Active Active Problems Problem Noted Date Diagnosed Date Coronary artery disease invo lving [place] coronary artery of [place] heart without angina pectoris 03/04/2025 Assessment & Plan (03/04/2025 11:54 AM CDT): Hx of what sounds like stable angina s/p pci x 2 to lad/rca. On dapt, plan to deescalate to plavix/aspirin monotherapy after 6 months, especially in light of hx of GIB. Ldl <70. No change in symptoms with colchicine, plan to to stop Bilateral carotid artery disease 03/04/2025 Assessment & Plan (03/04/2025 12:55 PM CDT): Hx moderate disease, repeat duplex today Moderate mixed hyperlipidemia not requiring stat in therapy 03/04/2025 Cellulitis of face 12/01/2018 History of spinal surgery 04/15/2016 Overview (09/01/2016): H/O Spinal surgery Cervical spondylosis with radiculopathy 03/03/20 16 Overview (09/01/2016): Cervical spondylosis with radiculopathy Chronic infection of sinus 01/19/2012 Encounters Date Type Department Care Team Description 03/04/2025 11:00 AM CDT Office Visit [facility] Medicine Cardiology [address] [place] [address] Medical Office Building [address] [place] [address] Christoph Rosales MD Bilateral carotid bruits (Primary Dx); Coronary artery disease involving [place] coronary artery of [place] heart without angina pectoris; Bilateral carotid artery disease, unspecified type; Moderate mixed hyperlipidemia not requiring statin therapy 03/03/2025 10:57 AM CDT - 03/03/2025 11:59 PM CDT Hospital Encounter [facility] [address] [place] [address] Discharge Disposition: Discharge to home or self care 03/03/2025 10:56 AM CDT - 03/03/2025 11:59 PM CDT Hospital Encounter [facility] ([facility] [place] [facility]) [address] [place] [address] Discharge Disposition: Discharge to home or self care 03/03/2025 9:02 AM CDT - 03/03/2025 11:59 PM CDT Hospital Encounter [facility] ([facility] [place] [facility]) [address] [place] [address] Discharge Disposition: Discharge to home or self care 02/28/2025 Telephone [facility] Medicine Cardiology [address] [facility] 8th [place] [address] [place] [address] Peggy Henderson New Patient from Last 3 Months Immunizations Immunization Administration Dates Next Due Influenza, Trivalent, IM (MDV) 01/27/2016 Surgical History Surgery Date Site/Laterality Comments CERVICAL FUSION SINUS SURGERY Medical History Medical History Date Comments Hypertension Neuropathy COPD (chronic obstructive pulmonary disease) Degenerative lumbar disc Social History Tobacco Use Types Packs/Day Years Used Date Smoking Tobacco: Every Day Smokeless Tobacco: Never Tobacco Cessation:Ready to Q uit: Not Asked; Counseling Given: Not Answered Sex and Gender Information Value Date Recorded Sex Assigned at Not on file Legal Sex Male 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 Gender Identity Not on file Sexual Orientation Not on file Last Filed Vital Signs Vital Sign Reading Time Taken Comments Blood Pressure 134/76 03/04/2025 11:26 AM CDT Pulse 68 03/04/2025 11:26 AM CDT Temperature 37 C (98.6 F) 01/27/2019 10:03 AM CDT Respiratory Rate 15 01/27/2019 10:57 AM CDT Oxygen Saturation 97% 03/04/2025 11:26 AM CDT Inhaled Oxygen Concentration - - Weight 99.6 kg (219 lb 9.6 oz) 03/04/2025 11:26 AM CDT Height 177.8 cm (5' 10) 03/04/2025 11:26 AM CDT Body Mass Index 31.51 03/04/2025 11:26 AM CDT Plan of Treatment Health Maintenance Due Date Last Done Comments Colon Cancer Screening-Colonoscopy 1967 Depression Screening 1967 Hepatitis C Screening 1967 Hepatitis B Screening 08/23/1985 Regular Well Visit/Exam 18-64 08/23/1985 Prostate Cancer Screening-PSA 12/15/2021 12/16/2019 Zoster Vaccine (2 of 2) 01/17/2023 11/22/2022 Covid-19 Vaccine (2 - 2024-2 6 season) 2025 10/09/2020 Influenza Vaccine (#1) 2025 4, 03/22/2023, 03/17/2022, Additional history exists DTaP/Tdap/Td Vaccine (2 - Td or Tdap) 01/31/2026 02/01/2016 Pneumococcal vaccine <65 Completed 12/26/2022 Procedures Procedure Name Priority Date/Time Associated Diagnosis Comments IR OUTSIDE REFERENCE Routine 03/03/2025 10:57 AM CDT IR OUTSIDE REFERENCE Routine 03/03/2025 10:56 AM CDT US TRANSFER OF OUTSIDE FILMS Routine 03/03/2025 9:02 AM CDT PSA SCREEN Routine 12/16/2019 10:34 AM CDT from Last 3 Months or Most Recently Relevant to Health Maintenance Results * IR Outside Reference (03/03/2025 10:57 AM CDT) Impressions RAD_PACS_[facility] - 03/03/2025 10:57 AM CDT These images are for Reference purposes only and have not been reviewed by [facility] Radiology. There will be no report generated by a [facility] Radiologist. Narrative RAD_PACS_[facility] - 03/03/2025 10:57 AM CDT EXAMINATION: Images For Reference Purposes Only us Christoph Rosales MD IMG IR PROCEDURES Fi nal Result [facility] * IR Outside Reference (03/03/2025 10:56 AM CDT) Impressions RAD_PACDilcia_[facility] - 03/03/2025 10:56 AM CDT These images are for Reference purposes only and have not been reviewed by [facility]. There will be no report generated by a [facility] Radiologist. Narrative [facility] - 03/03/2025 10:56 AM CDT EXAMINATION: Images For Reference Purposes Only us Christoph Rosales MD IMG IR PROCEDURES Fi nal Result Performing Organization Address [facility] Co de Phone Number RAD[facility] * US Outside Reference (03/03/2025 9:02 AM CDT) Impressions RAD_BILLY_[facility] - 03/03/2025 9:02 AM CDT These images are for Reference purposes only and have not been reviewed by [facility]. There will be no report generated by a [facility] Radiologist. Narrative [facility]_P[facility] - 03/03/2025 9:02 AM CDT EXAMINATION: Images For Reference Purposes Only us Christoph Rosales MD IMG US PROCEDURES Fi nal Result Performing Organization Address [facility] Co de Phone Number [facility]_P[facility] * PSA screen (12/16/2019 10:34 AM CDT) PSA-Total 2.91 <=3.90 ng/mL [facility]UMBERTO [facility] (AIYANA) Comment: Interpretive Data AGE SEX REFERENCE INTERVAL 0 minutes-150 years Female None 0 minutes-49 years Male None 50-59 years Male 0-3.90 60-69 years Male 0-5.40 70-79 years Male 0-6.20 80-150 years Male 0-6.20 Current interpretive data last revised 2018. Testing performed by: [facility], [address] [place] [address], [place]., [address] Blood specimen (specimen) 12/16/2019 10:34 AM CDT 12/16/2019 2:31 PM CDT Shravan Og MD LAB BLOOD ORDERABLES Final Result [facility] ([facility]) [facility] Department of Laboratories [place], [place] [id number] from Last 3 Months or Most Recently Relevant to Health Maintenance Insurance [facility] Care Teams Golf Technician Relationship Specialty Start Date End Date Mann Mijares MD [address] [place], [place] [id number] PCP - General 03/03/16
--- OUTSIDE RECORDS SUMMARY | 2025-05-18 13:56 | XMS_ITS | Encounter Summary ---
Author Organization [facility] Address [address] [place] [address] Phone Care Team Providers Care Speech And Hearing Clinic Director Name Role Phone Jacque Ryder NIEVES, SCHEDULING AGENT Unavailable Benny Mijares MD Primary Care Provider [phone] Maeve Lopez APRN, SCHEDULING AGENT Unavailable Blaine Ashby MD Unavailable Chau Rush MD Unavailable Francesco Junior MD Unavailable [phone] Charles Miguel MD Unavailable Reason for Visit * Reason Comments Medication Refill Encounter Details Date Type Department Care Team (Late st Contact Info) Description 03/22/2025 Refill [facility] - Family Medicine [facility] [address] [place] [address] Benny Mijares MD #[address] [address] Medication Refill Social History Tobacco Use Types Packs/Day Years Used Date Smoking Tobacco: Every Day Cigarettes 1 42 Started: 1983 Passive Smoke Exposure: Current Smokeless Tobacco: Former Chew Quit: 1989 Alcohol Use Standard Drinks/Week Comments Yes 1 (1 standard drink = 0.6 oz pur e alcohol) once a month 6-7 beers seldom [facility] Utilities Answer Date Recorded In [...] often do you attend chur ch or presybeterian services? Never 08/29/2023 Do you belong to any clubs o r organizations such as yarsani groups, unions, fraternal or athletic groups, or [...] Score - Questions 1-9 0 09/0 12/2024 [facility] [place] of Occupat ional Health - Occupational Stress [...] place to sleep or slept in a senior living (including now)? No 08/29/2023 Sexually Active Control Partners Comments Not Currently Female Sex and Gender Information Value Date Recorded Sex Assigned at Male 01/10/2023 2:18 PM CDT Legal Sex Male 9:45 PM CDT Gender Identity Male 01/10/2023 2:18 PM CDT Sexual Orientation Not on file documented as of this encounter Miscellaneous Notes * Telephone Encounter - Martine Restrepo RN - 03/24/2025 10:28 AM CDT Refills on file - see last Rx documented in this encounter Plan of Treatment Upcoming Encounters Date Type Department Care Team (Late st Contact Info) Description 06/26/2025 2:45 PM PROPERTY WORKER Office Visit [facility] - Cardiology - [place] [address] [place] [address] Francesco Junior MD [address] [facility]. [address] [place] [address] 07/24/2025 2:45 PM PROPERTY WORKER Office Visit [facility] - Family [facility] [address] [place] [address] Benny Mijares MD #[address] [address] documented as of this encounter Visit Diagnoses Diagnosis Primary hypertension Unspecified essential hypertension documented in this encounter Additional Health Concerns Assessment Noted Time PHQ-9 Depression Total Score: 0 02/04/20 11:14 AM CDT documented as of this encounter Care Teams Speech And Hearing Clinic Director Relationship Specialty Start Date End Date Benny Mijares MD #[address] [address] PCP - General Family Medicine 04/19/24 Jacque Ryder APRN, SCHEDULING AGENT [address] [place] [address] Nurse Practitioner Advanced Practice Nurse 09/23/22 Maeve Lopez APRN, SCHEDULING AGENT [address] [place] [address] Nurse Practitioner Cardiology 09/06/24 Blaine Ashby MD #[address] [place] [address] Consulting Physician Pulmonary Disease 10/16/24 Chau Rush MD #[address] [address] Consulting Physician Colon and Rectal Surgery 10/16/24 Francesco Junior MD 2 [facility] [address] [address] [facility]. [address] [place], [place] [phone] Consulting Physician Cardiology 01/03/25 Charles Miguel MD #2 [address] [facility] [address] [place] [phone] Consulting Physician Urology 03/12/25 documented as of this encounter
--- OUTSIDE RECORDS SUMMARY | 2025-05-18 13:56 | XMS_ITS | Clinical Summary ---
Author Organization [facility] Address [address] [place] [address] Phone Care Team Providers Care Shredded Filler Hopper Feeder Name Role Phone LucyvikashJacque lee APRN, PRESIDENT AND CEO Unavailable Benny Mijares MD Primary Care Provider [phone] Maeve Lopez APRN, PRESIDENT AND CEO Unavailable Blaine Ashby MD Unavailable Chau Rush MD Unavailable Francesco Junior MD Unavailable [phone] Charles Miguel MD Unavailable Allergies No known active allergies Medications traZODone (DESYREL) 50 MG Tablet Take 50 mg by mouth nightly as needed for Sleep. 023 Active citalopram (CeleXA) 40 MG Tablet Take 40 mg by mouth every morning. 024 Active cyclobenzaprine (FLEXERIL) 10 MG Tablet Take 1 Tablet by mouth 3 times daily as needed for Muscle spasms. 42 Tablet 024 Active gabapentin (NEURONTIN) 100 MG Capsule 100 mg 3 times daily as needed. 025 Active clopidogrel (Plavix) 75 MG Tablet Take 1 Tablet by mouth daily. 90 Tablet 3 025 Active aspirin 81 MG Chewable Tablet Take 1 Tablet by mouth daily. Active amLODIPine (NORVASC) 5 MG Tablet Take 1 Tablet by mouth every morning. 90 Tablet 3 025 Active pantoprazole (PROTONIX) 40 MG Tablet Delayed ResponseIndicatio ns:Gastroesophage al reflux disease, unspecified whether esophagitis present Take 1 Tablet by mouth daily. 90 Tablet 3 025 Active atenolol (TENORMIN) 50 MG TabletIndications :Primary hypertension Take 1 Tablet by mouth 2 times daily. 180 Tablet 3 025 Active atorvastatin (LIPITOR) 40 MG TabletIndications :Mixed hyperlipidemia Take 1 Tablet by mouth nightly. 90 Tablet 3 025 Active albuterol 108 (90 Base) MCG/ACT Aerosol Solution INHALE 1 TO 2 PUFFS BY MOUTH EVERY 6 HOURS NEEDED FOR WHEEZING 18 g 2 Active isosorbide mononitrate (IMDUR) 30 MG TABLET SR 24 HRIndications:Aty pical chest pain Take 1 Tablet by mouth every morning. 90 Tablet 3 025 Active docusate sodium (COLACE) 100 MG Capsule Take 1 Capsule by mouth 2 times daily as needed for Constipation - 1st line. 30 Capsule 025 Active oxyCODONE-acetami nophen (PERCOCET) 5-325 MG TabletIndications :Diverticulitis Take 1 Tablet by mouth every 6 hours as needed for Severe pain. 12 Tablet 025 Active oxyCODONE-Acetami nophen (PERCOCET) 10-325 MG TabletIndications :Chronic back pain greater than 3 months duration,Chronic neck pain Take 1 Tablet by mouth every 8 hours as needed for Severe pain. 90 Tablet 025 Active furosemide (LASIX) 20 MG Tablet Take 1 Tablet by mouth daily as needed (leg edema). 30 Tablet 3 023 2024 Discontinued(M ed List Clean Up) hydrOXYzine (VISTARIL) 25 MG Capsule Take 1 Capsule by mouth nightly as needed for Other (insomnia). 20 Capsule 025 2024 Discontinued(M ed List Clean Up) colchicine 0.6 MG TabletIndications :Atypical chest pain Take 1 Tablet by mouth daily. 90 Tablet 3 2024 Discontinued(M ed List Clean Up) HYDROcodone-aceta minophen (NORCO) 10-325 MG TabletIndications :Chronic bilateral low back pain with bilateral sciatica Take 1 Tablet by mouth every 8 hours as needed for Moderate or more severe pain. 90 Tablet 2024 Discontinued docusate sodium (COLACE) 100 MG Capsule Take 1 Capsule by mouth 2 times daily. 30 Capsule 1 2024 Discontinued metroNIDAZOLE (FLAGYL) 500 MG Tablet Take 1 Tablet by mouth 3 times daily for 8 days. 24 Tablet 2024 levoFLOXacin (LEVAQUIN) 500 MG Tablet Take 1 Tablet by mouth daily for 8 days. 8 Tablet 2024 HYDROcodone-aceta minophen (NORCO) 10-325 MG TabletIndications :Chronic bilateral low back pain with bilateral sciatica Take 1 Tablet by mouth every 8 hours as needed for Moderate or more severe pain. 90 Tablet 2024 Discontinued(L ack of Efficacy) Hospital, Clinic, or Other Facility Administered Medication Ordered Dose Route Frequency Start Date End Date Status ketorolac (TORADOL) injection 60 mgIndications:History of diverticulitis,Chronic back pain greater than 3 months duration 60 mg IM ONCE 05/06/2025 05/06/2025 Ended Active Problems Problem Noted Date Diagnosed Date Generalized abdominal pain 05/06/2025 History of diverticulitis 05/06/2025 Obesity (BMI 30-39.9) 05/06/2025 Chronic neck pain 05/06/2025 Chronic back pain greater than 3 months duration 05/06/2025 History of coronary artery disease 02/22/2025 Iron deficiency anemia secondary to blood loss ( chronic) 02/13/2025 Bladder wall thickening 02/11/2025 Stenosis of inferior mesenteric artery Anemia, normocytic normochromic 02/11/2025 Constipation 02/11/2025 Left flank pain 02/11/2025 Lower GI bleeding 02/04/2025 Overview (05/01/2025): EGD w/ benign esophageal nodule, colonoscopy showed umcomplicated diverticultis vs inferior mesentery artery stenosis Morbid obesity 02/03/2025 Diverticulitis 02/03/2025 Bloody stool 02/03/2025 Rectal bleeding 02/03/2025 COVID-19 10/23/2024 Dizziness 10/06/2024 Dysphagia 10/01/2024 History [...] Encounters Date Type Department Care Team Description 05/14/2025 2:30 PM FRUIT LOADER - 05/14/2025 11:59 PM FRUIT LOADER [facility] [address] [place] [address] Francesco Junior MD Discharge Disposition: Discharged to home or Selfcare 05/14/2025 Medication Prior Authorization [facility] [address] [place] [address] Benny Mijares MD Prior Authorization (oxyCODONE-Acetaminop hen (PERCOCET) 10-325 MG Tablet) 05/14/2025 Travel 05/06/2025 11:15 AM FRUIT LOADER [facility] [address] [place] [address] Benny Mijares MD Obesity (BMI 30-39.9) (Primary Dx); History of diverticulitis; Generalized abdominal pain; Chronic back pain greater than 3 months duration; Chronic neck pain Discharge Disposition: Discharged to home or Selfcare 05/06/2025 [facility]phone [facility] [place] [address] Benny Mijares MD Medication Management 05/06/2025 Travel 05/05/2025 Telephone [facility] [address] [place] [address] Benny Mijares MD Appointment 05/04/2025 Telephone [facility] [address] [place] [address] Benny Mijares MD 05/01/2025 11:23 AM FRUIT LOADER - 05/03/2025 3:44 PM FRUIT LOADER [facility] [address] [place] [address] Josef Velazquez MD Smith, Addy Sandoval APRN, PRESIDENT AND CEO Carmicheal, Ana Swain MD Diverticulitis Discharge Disposition: Discharged to home or Selfcare 05/01/2025 Telephone [facility] [address] [place] [address] Benny Mijares MD 05/01/2025 Travel 04/16/2025 [facility]ill [facility] [address] [place] [phone] Benny Mijares MD Medication Refill 04/11/2025 Telephone [facility] Cardiology [facility] [address] [place] [address] Francisca Craig APRN, PRESIDENT AND CEO 03/22/2025 [facility] [address] [place] [address] Benny Mijares MD Medication Refill 03/20/2025 Refill [facility] [address] [place] [phone] Benny Mijares MD Medication Refill 03/12/2025 8:15 AM CDT Office Visit [facility] [address] [place] [address] Charles Miguel MD Bladder wall thickening (Primary Dx) Discharge Disposition: Discharged to home or Selfcare 03/12/2025 Telephone [facility] [address] [place] [address] Benny Mijares MD 03/12/2025 Travel 02/28/2025 11:30 AM CDT Clinical Support [facility] On[facility] [address] [place] [address] Honey Torrez, PAC Anemia, normocytic normochromic (Primary Dx); Iron deficiency anemia secondary to blood loss (chronic) Discharge Disposition: Discharged to home or Selfcare 02/28/2025 Travel 02/28/2025 Telephone [facility] Central Call Center [address] [place] [phone] Benny Mijares MD Referral 02/21/2025 1:00 PM CDT Clinical Support [facility] Oncology Services [address] [place] [address] Honey Torrez October, [facility] Anemia, normocytic normochromic (Primary Dx); Iron deficiency anemia secondary to blood loss (chronic) Discharge Disposition: Discharged to home or Selfcare 02/21/2025 Telephone [facility] Central Call Center [address] [place] [phone] Benny Mijares MD Advice Only; Medication Management; Referral 02/21/2025 Telephone [facility] Oncology Services [address] [place] [address] Honey Torrez Anel, [facility] 02/21/2025 Travel 02/20/2025 10:00 AM CDT Office Visit [facility] Cardiology [facility] [address] [place] [address] Benny Mijares MD Arora, Shilpkumar, MD Coronary artery disease involving [place] coronary artery of [place] heart without angina pectoris (Primary Dx); Stenosis of inferior mesenteric artery (HCC); Atypical chest pain; Dizziness; Benign essential HTN; Stenosis of right carotid artery Discharge Disposition: Discharged to home or Selfcare 02/20/2025 Refill [facility] Central Call Center [address] [place] [phone] Benny Mijares MD Medication Refill; Follow-up 02/20/2025 Telephone [facility] Central Call Center [address] [place] [phone] Benny Mijares MD Follow-up 02/20/2025 Results Follow-Up [facility] Cardiology [facility] [address] [place] [address] Francisca Craig APRN, PRESIDENT AND CEO US DOPPLER LOWER ARTERIAL W EXER LIMITED 02/19/2025 7:43 AM CDT - 02/19/2025 11:59 PM CDT Hospital [facility] 1 [facility] [place] [phone] Francesco Junior MD Discharge Disposition: Discharged to home or Selfcare 02/18/2025 11:45 AM CDT [facility] [place] [address] [facility] [address] [place] [phone] Chau Rush MD Diverticulitis of colon with bleeding (Primary Dx) Discharge Disposition: Discharged to home or Selfcare 02/18/2025 Travel 02/17/2025 1:00 PM CDT Clinical Support [facility] [address] [place] [phone] Honey Torrez October, Anemia, normocytic normochromic (Primary Dx); Iron deficiency anemia secondary to blood loss (chronic) Discharge Disposition: Discharged to home or Selfcare 02/17/2025 Travel from Last 3 Months Immunizations Immunization Administration Dates Next Due Influenza Vaccine 04/19/2024 Influenza Vaccine, MDCK,quad rivalent, pres free 03/17/2022,04/01/2021 Influenza Vaccine, Quadrivalent, PF 03/22/2023,0 02/18/2020,01/18/2016 Influenza, Seasonal, Injectable, Undefined 01/26 Influenza,Split Virus,Trivalent,Injectable,PF 05/02/2025() Pneumococcal conjugate PCV20 , polysaccharide [id number] conjugate, adjuvant, PF 12/26/2022 TDAP Vaccine 02/01/2016 Zoster Vaccine Recombinant 11/22/2022 Family History Medical History Relation Name Comments No Known Problems Daughter Hypertension Father No Known Problems Maternal Grandfather Diabetes Maternal Grandmother Heart Disease Maternal Grandmother Aneurysm Mother brain Breast Cancer [...] Quit: 1989 Tobacco Cessation:Ready to Q uit: Yes; Counseling Given: Yes Alcohol Use Standard Drinks/Week Comments Yes 1 (1 standard drink = 0.6 oz pur e alcohol) once a month 6-7 beers seldom Social Connection and Isolation Panel Answer Date Recorded In a typical week, how many times do you talk on the phone with family, friends, or neighbors? More than three times a week 08/29/2023 How often do you get togethe r with friends or relatives? More than three times a week 08/29/2023 How often do you attend chur ch or yazidism services? Never 08/29/2023 Do you belong to any clubs o r organizations such as pentecostalism groups, unions, fraternal or athletic groups, or [...] Score - Questions 1-9 0 09/0 12/2024 [place] [facility] - Occupational Stress Questionnaire Answer Date Recorded Do you feel stress - tense, restless, nervous, or anxious, or unable to sleep at night because your mind is troubled all the time - these days? Not at all 08/29/2023 Hunger Vital Sign Answer Date Recorded [...] place to sleep or slept in a nursing home (including now)? No 08/29/2023 Social Connection and Isolation Panel Answer Date Recorded In a typical week, how many times do you talk on the phone with family, friends, or neighbors? Patient declined 05/01/2025 How often do you get togethe r with friends or relatives? Patient declined 05/01/2025 How often do you attend pentecostalism or yazidism serv ices? Patient declined 05/01/2025 Do you belong to any clubs o r organizations such as pentecostalism groups, unions, fraternal or athletic groups, or school groups? Patient declined 05/01/2025 How often do you attend meet ings of the clubs or organizations you belong to? Patient declined 05/01/2025 Are you , , di vorced, , never , or living with a partner? Patient declined 05/01/2025 AUDIT-C Answer Date Recorded Q1: How often do you have a drink containing alc ohol? Patient declined 05/01/2025 Q2: How many drinks containi ng alcohol do you have on a typical day when you are drinking? Patient declined 05/01/2025 Q3: How often do you have si x or more drinks on one occasion? Patient declined 05/01/2025 Overall Financial Resource Strain (CARDIA) Answe r Date Recorded How hard is it for you to pa y for the very basics like food, housing, medical care, and heating? Patient declined 05/01/2025 [place] [facility] - Occupational Stress Questionnaire Answer Date Recorded Do you feel stress - tense, restless, nervous, or anxious, or unable to sleep at night because your mind is troubled all the time - these days? Patient declined 05/01/2025 Exercise Vital Sign Answer Date Recorde d On average, how many days pe r week do you engage in moderate to strenuous exercise (like a brisk walk)? Patient declined On average, how many minutes do you engage in exercise at this level? Patient declined 05/01/2025 Hunger Vital Sign Answer Date Recorded Within the past 12 months, y ou worried that your food would run out before you got the money to buy more. Patient declined Within the past 12 months, t he food you bought just didn't last and you didn't have money to get more. Patient declined 08/2024 PRAPARE - Transportation Answer Date Re corded In the past 12 months, has l ack of transportation kept you from medical appointments or from getting medications? Patient declined 05/01/2025 In the past 12 months, has l ack of transportation kept you from meetings, work, or from getting things needed for daily living? Patient declined 05/01/2025 Housing Stability Vital Sign Answer [place] e Recorded In the last 12 months, was t here a time when you were not able to pay the mortgage or rent on time? Patient declined 05/01/20 25 In the past 12 months, how m any times have you moved where you were living? 0 05/01/2025 At any time in the past 12 m [facility], were you homeless or living in a nursing home (including now)? Patient declined 05/01/2025 [facility] Utilities Answer Date Recorded In the past 12 months has th e [employer], gas, oil, or water company threatened to shut off services in your home? Patient declined 05/01/2025 Sexually Active Control Partners Comments Not Currently Female Sex and Gender Information Value Date Recorded Sex Assigned at Male 01/10/2023 2:18 PM CDT Legal Sex Male 9:45 PM CDT Gender Identity Male 01/10/2023 2:18 PM CDT Sexual Orientation Not on file Last Filed Vital Signs Vital Sign Reading Time Taken Comments Blood Pressure 116/76 05/06/2025 11:17 AM FRUIT LOADER Pulse 64 05/06/2025 11:17 AM FRUIT LOADER Temperature 36.1 C (96.9 F) 05/06/2025 11:17 AM FRUIT LOADER Respiratory Rate 20 05/03/2025 12:47 PM FRUIT LOADER Oxygen Saturation 100% 05/06/2025 11:17 AM FRUIT LOADER Inhaled Oxygen Concentration - - Weight 98.9 kg (218 lb) 05/06/2025 11:17 AM FRUIT LOADER Height 172.7 cm (5' 8) 05/06/2025 11:17 AM FRUIT LOADER Body Mass Index 33.15 05/06/2025 11:17 AM FRUIT LOADER Plan of Treatment Upcoming Encounters Date Type Department Care Team (Late st Contact Info) Description 06/26/2025 2:45 PM FRUIT LOADER [facility] [place] [address] [place] [address] Francesco Junior MD [address] [facility] [address] [place] [address] 07/24/2025 2:45 PM FRUIT LOADER [facility] [place] [address] [place] [address] Benny Mijares MD [address] [address] Health Maintenance Due Date Last Done Comments Hepatitis C Virus (HCV) Screening 1965 Hepatitis B Immunization (1 of 3 - 19+ 3-dose series) 08/23/1986 Cologuard 08/23/2012 Medicare Initial AWV [id number] 11/27/2015 Respiratory Syncytial Virus (RSV) Immunization (Adult) (1 - Risk 50-74 years 1-dose series) 08/23/2017 Zoster Immunization (2 of 2) 01/17/2023 11/22/2022 Immunochemical Fecal Occult Blood 09/22/2023 09/21/2022 Influenza Immunization (#1) 2025 11/2 06/2023, 03/22/2023, 03/17/2022, Additional history exists SARS-COV-2 Immunization ( season) 2025 10/09/2020 Td Immunization Every 10 Years (Adults With 1 Tdap) 01/31/2026 02/01/2016 Colonoscopy 10/01/2027 09/30/2022, 05/0 09/2022, 08/13/2018 Colorectal Cancer Screening 10/01/2027 DTaP/Tdap/Td Immunization Discontinued 02/01/2016 Pneumococcal Immunization (50+ years) Completed 12/26/2022 Pneumococcal Immunization Combined Discontinued 12/26/2022 Lung Cancer Screening Discontinued 06/10/2024 PSA Discussion Completed 02/03/2025, 08/28, 06/24/2021 Human Papillomavirus (HPV) Immunization (No Doses Required) Completed Meningococcal Immunization (ACWY) Aged Out No longer eligible based on patient's age to complete this topic Rotavirus Immunization Aged Out No lo nger eligible based on patient's age to complete this topic Medical Devices Implanted Type Area Atmospheric Physics Professor Device Identifier Shelf Expiration Date Model / Serial / Lot System Coronary Stent Xience Skypoint Everolimus Eluting 3.25 Mm X 38 Mm / Rapid-Exchang e - [id number] Implanted:Qty : 1 on 09/26/20[facility] IMPLANT [employer] [id number] 11/18/2026 [id number] / / [id number] System Coronary Stent Xience Skypoint Everolimus Eluting 4.00 Mm X 18 Mm / Rapid-Exchang e - [id number] Implanted:Qty : 1 on 11/05/2024 by Francesco Junior MD at [facility] IMPLANT N/A: Coronary [employer] [id number] 07/14/2027 [id number] / / [id number] Procedures Procedure Name Priority Date/Time Associated Diagnosis Comments CBC WITH AUTO DIFFERENTIAL Routine 05/03/2025 4:19 AM FRUIT LOADER COMPLETE BLOOD COUNT (CBC) WITH DIFF Routine 05/03/2025 4:19 AM FRUIT LOADER BASIC METABOLIC PANEL W/ CALCIUM TOTAL Routine 05/03/2025 4:19 AM FRUIT LOADER CBC WITH AUTO DIFFERENTIAL Routine 05/02/2025 5:50 AM FRUIT LOADER COMPLETE BLOOD COUNT (CBC) WITH DIFF Routine 05/02/2025 5:50 AM FRUIT LOADER BASIC METABOLIC PANEL W/ CALCIUM TOTAL Routine 05/02/2025 5:50 AM FRUIT LOADER RHYTHM STRIP 05/02/2025 12:00 AM FRUIT LOADER RHYTHM STRIP 05/02/2025 12:00 AM FRUIT LOADER URINALYSIS REFLEX IF INDICATED BY ABNORMAL RESULTS STAT 05/01/2025 12:[address] ABDOMEN PELVIS W/ CONTRAST Stat with Interpretation 05/01/2025 12:40 PM FRUIT LOADER CBC WITH AUTO DIFFERENTIAL STAT 05/01/2025 11:43 AM FRUIT LOADER LIPASE STAT 05/01/2025 11:43 AM FRUIT LOADER CMP (COMPREHENSIVE METABOLIC PANEL) STAT 05/01/2025 11:43 AM FRUIT LOADER COMPLETE BLOOD COUNT (CBC) WITH DIFF STAT 05/01/2025 11:43 AM FRUIT LOADER RHYTHM STRIP 05/01/2025 12:00 AM FRUIT LOADER RHYTHM STRIP 05/01/2025 12:00 AM FRUIT LOADER PATHOLOGY CYTOLOGY NON-SOFTWARE QUALITY ANALYST Routine 03/12/2025 9:20 AM CDT Bladder wall thickening POCT UA AUTOMATED W/O MICRO Routine 03/12/2025 8:41 AM CDT Bladder wall thickening NGOZI,POST-VOID RES,US,NON-IMAGING Routine 03/12/2025 8:15 AM CDT Bladder wall thickening CTA GENERIC 03/07/2025 12:00 AM CDT US DOPPLER LOWER ARTERIAL W EXER LIMITED Routine 02/19/2025 11:39 AM CDT PAD (peripheral artery disease) (HCC) PSA SCREEN Routine 02/03/2025 11:57 AM CDT Screening for prostate cancer CT CHEST SCREENING WO Routine 06/10/2024 9:34 AM FRUIT LOADER Personal history of tobacco use, presenting hazards to health GI IMAGING - COLONOSCOPY STAT 09/30/2022 9:35 AM CDT STOOL, OCCULT BLOOD, DIAGNOSTIC, VIA GUAIAC STAT 09/21/2022 3:49 PM CDT from Last 3 Months or Most Recently Relevant to Health Maintenance Results * CBC with Auto Differential (05/03/2025 4:19 AM FRUIT LOADER) Only the most recent of3 resultswithin the time period is included. WBC 8.19 4.00 - 12.00 10(3)/mcL 05/03/2025 5:02 AM [facility] RBC 4.75 4.40 - 5.80 10(6)/mcL 05/03/2025 5:02 AM [facility] HEMOGLOBIN (HGB) 14.2 13.0 - 16.5 g/dL 05/03/2025 5:02 AM [facility] HEMATOCRIT (HCT) 43.7 38.0 - 50.0 % 05/03/2025 5:02 AM [facility] MCV 92.0 82.0 - 96.0 fL 05/03/2025 5:02 AM [facility] MCH 29.9 26.0 - 32.0 pg 05/03/2025 5:02 AM [facility] MCHC 32.5 31.0 - 36.0 g/dL 05/03/2025 5:02 AM [facility] PLATELET COUNT 253 140 - 440 10(3)/mcL 05/03/2025 5:02 AM [facility] RDW 12.7 11.8 - 15.5 % 05/03/2025 5:02 AM [facility] MPV 8.9 8.0 - 12.6 fL 05/03/2025 5:02 AM [facility] NEUTROPHILS 60.4 40.0 - 68.0 % 05/03/2025 5:02 AM [facility] LYMPHOCYTES 22.6 19.0 - 49.0 % 05/03/2025 5:02 AM [facility] MONOCYTES 10.6 3.0 - 13.0 % 05/03/2025 5:02 AM [facility] EOSINOPHILS 5.6 0.0 - 8.0 % 05/03/2025 5:02 AM [facility] BASOPHILS 0.4 0.0 - 1.0 % 05/03/2025 5:02 AM [facility] IMMATURE GRANULOCYTE 0.4 0.0 - 0.4 % 05/03/2025 5:02 AM [facility] ABSOLUTE NEUTROPHILS 4.95 1.40 - 5.30 10(3)/[facility] 05/03/2025 5:02 AM [facility] ABSOLUTE LYMPHOCYTES 1.85 0.90 - 3.30 10(3)/[facility] 05/03/2025 5:02 AM [facility] ABSOLUTE MONOCYTES 0.87 0.10 - 0.90 10(3)/[facility] 05/03/2025 5:02 AM [facility] ABSOLUTE EOSINOPHIL 0.46 0.00 - 0.50 10(3)/[facility] 05/03/2025 5:02 AM [facility] ABSOLUTE BASOPHILS 0.03 0.00 - 0.10 10(3)/[facility] 05/03/2025 5:02 AM [facility] ABSOLUTE IMMATURE GRANULOCYTE 0.03 0.00 - 0.03 10 (3) [facility]. 05/03/2025 5:02 AM [facility] NRBC PER 100 WBC 0 05/03/20 5:02 AM [facility] Blood Venipuncture / Unknown 05/03/2025 4:19 AM FRUIT LOADER 05/03/2025 4:52 AM FRUIT LOADER us Addy Gandhi HAIR STYLIST, PRESIDENT AND CEO HEMATOLOGY ORDERABLES F inal Result [facility] [address] [place] [address] * (ABNORMAL) BMP with Ca, Total (05/03/2025 4:19 AM FRUIT LOADER) Only the most recent of2 resultswithin the time period is included. SODIUM 140 136 - 145 mmol/L 05/03/2025 5:23 AM FRUIT LOADER [facility] POTASSIUM 3.9 3.5 - 5.1 mmol/L 05/03/2025 5:23 AM [facility] CHLORIDE 103 98 - 107 mmol/L 05/03/2025 5:23 AM [facility] CO2, VENOUS 26 22 - 30 mmol/L 05/03/2025 5:23 AM [facility] ANION GAP 14.9 <18.0 mmol/L 05/03/2025 5:23 AM FRUIT LOADER [facility] GLUCOSE 83 70 - 99 mg/dL 05/03/2025 5:23 AM [facility] BUN 7(L) 8 - 26 mg/dL 05/03/2025 5:23 AM [facility] CREATININE, BLOOD 0.79 0.70 - 1.30 mg/dL 05/03/2025 5:23 AM [facility] BUN/CREATININE RATIO 9(L) 12 - 20 ratio 05/03/2025 5:23 AM [facility] CALCIUM 9.2 8.7 - 10.5 mg/dL 05/03/2025 5:23 AM [facility] GFR, ESTIMATED >60 >=60 05/03/2025 5:23 AM [facility] Comment: Creatinine Clearance is the preferred criteria for selecting drug dose adjustments in renally impaired patients. The GFR is provided as additional pertinent clinical information. GFR is reported in mL/min/1.73 sq m. Calculation based on the 2020 Chronic Kidney Disease Epidemiology Collaboration (CKD-EPI) equation refit without adjustment for race. GFR, EST. >60 >=60 025 5:23 AM FRUIT LOADER [facility] Comment: Creatinine Clearance is the preferred criteria for selecting drug dose adjustments in renally impaired patients. The GFR is provided as additional pertinent clinical information. GFR is reported in mL/min/1.73 sq m. Calculation based on the 2009 Chronic Kidney Disease Epidemiology Collaboration (CKD-EPI). GFR, EST. NONAFRICAN >60 >=60 05/03/2025 5:23 AM FRUIT LOADER [facility] Comment: Creatinine Clearance is the preferred criteria for selecting drug dose adjustments in renally impaired patients. The GFR is provided as additional pertinent clinical information. GFR is reported in mL/min/1.73 sq m. Calculation based on the 2009 Chronic Kidney Disease Epidemiology Collaboration (CKD-EPI). Blood Venipuncture / Unknown 05/03/2025 4:19 AM FRUIT LOADER 05/03/2025 4:54 AM FRUIT LOADER Addy Gandhi HAIR STYLIST, PRESIDENT AND CEO CHEMISTRY ORDERABLES Fi nal Result Performing Organization Address [facility] de Phone Number [facility] [place] [address] * RHYTHM STRIP (05/02/2025 12:00 AM FRUIT LOADER) Only the most recent of4 resultswithin the time period is included. 05/02/2025 Provider Scan IMG ECG ORDERABLES Final Result Performing Organization Address [facility] Co de Phone Number RESULTING AGENCY * Urinalysis w/ Reflex (05/01/2025 12:45 PM FRUIT LOADER) SPECIFIC GRAVITY 1.010 1.003 - 1.030 05/01/2025 1:25 PM FRUIT LOADER [facility] URINE PH 8.0 5.0 - 9.0 05/01/2025 1:25 PM FRUIT LOADER [facility] WBC ESTERASE Negative Negative 05/01/2025 1:25 PM FRUIT LOADER [facility] NITRITE Negative Negative 05/01/2025 1:25 PM FRUIT LOADER [facility] PROTEIN, RANDOM URINE Negative Negative 05/01/2025 1:25 PM FRUIT LOADER [facility] URINE GLUCOSE, QUAL Negative Negative 05/01/2025 1:25 PM FRUIT LOADER [facility] URINE KETONES Negative Negative 05/01/2025 1:25 PM FRUIT LOADER [facility] UROBILINOGEN Normal Normal mg/dL 05/01/2025 1:25 PM FRUIT LOADER [facility] URINE BLOOD Negative Negative choco/ul 05/01/2025 1:25 PM FRUIT LOADER [facility] URINALYSIS COLOR Yellow 05/01/20 1:25 PM FRUIT LOADER [facility] URINALYSIS CLARITY Clear 05/01/2025 1:25 PM FRUIT LOADER [facility] Urine URINE SPECIMEN / Unknown Non-Phlebotomy Collection / Unknown 05/01/2025 12:45 PM FRUIT LOADER 05/01/2025 12:58 PM FRUIT LOADER Josef Velazquez MD URINE ORDERABLES Final Result [facility] [address] [place] [address] * CT ABDOMEN PELVIS W/ CONTRAST (05/01/2025 12:40 PM FRUIT LOADER) Anatomical Region Laterality Modality Abdomen N/A Computed Tomogra phy 05/01/2025 12:4 0 PM FRUIT LOADER Impressions 05/01/2025 1:04 PM FRUIT LOADER IMPRESSION: 1. Multifocal sites of mild uncomplicated diverticulitis along the proximal to distal descending colon. No extraluminal air or abscess. Narrative 05/01/2025 1:04 PM FRUIT LOADER DICTATING PHYSICIAN: Alexa Wright M.D. - [facility] PROCEDURE: CT ABDOMEN PELVIS W/ CONTRAST DATE OF EXAM: 05/01/2025 12:40 PM DEMOGRAPHICS: 59 years, Male INDICATION: Left lower quadrant pain, left back pain. Diarrhea for one week. History of GI bleed. Diverticulosis. COMPARISON: CT 02/03/2025 TECHNIQUE: Contiguous axial slices of the abdomen and pelvis were submitted after the IV administration of contrast. Coronal and sagittal reformatted images were provided. Contrast utilized: 100 mL Isovue 300 IV. DOSE OPTIMIZATION AND RADIATION EXPOSURE: Radiation dose reduction techniques were employed. CTDIvol: 2.9 - 16.3 mGy. DLP: 1745 mGy-cm. FINDINGS: Inferior chest: Bilateral dependent atelectasis. Coronary artery calcification. Liver: Unremarkable. Gallbladder and biliary tree: No calcified gallstones. No biliary duct dilation. Pancreas: Unremarkable. No duct dilation. Spleen: Unremarkable. Adrenals: Unremarkable. Kidneys/Ureters: Normal renal size and enhancement. No hydronephrosis or nephrolithiasis. Bilateral perinephric stranding, nonspecific. Urinary bladder: Unremarkable. Reproductive organs: Mildly enlarged prostate gland. Distal esophagus, Stomach and Small Bowel: Stomach is unremarkable. Duodenal diverticulum. No bowel obstruction. Colon: Extensive diverticulosis. Focal fat stranding along a few diverticuli along the proximal to distal descending colon (series 301, images 65, 98, and 137). No extraluminal air. No abscess. Appendix: Normal. Peritoneum/Mesentery: No free fluid or free air. Vasculature: Aorta is normal in caliber with moderate aortoiliac atherosclerotic calcification. DAMARIS stenosis or occlusion better evaluated on the recent CTA. IVC is unremarkable. Patent splanchnic and hepatic vasculature. Lymphatic system: No lymphadenopathy. Retroperitoneum: Unremarkable. Abdominal/pelvic wall: Fat-containing umbilical hernia. Bones: No suspicious osseous lesions. Procedure Note Alexa Wright MD - 05/01/2025 DICTATING PHYSICIAN: Alexa Wright M.D. - [facility] PROCEDURE: CT ABDOMEN PELVIS W/ CONTRAST DATE OF EXAM: 05/01/2025 12:40 PM DEMOGRAPHICS: 59 years, Male INDICATION: Left lower quadrant pain, left back pain. Diarrhea for oneweek. History of GI bleed. Diverticulosis. COMPARISON: CT 02/03/2025 TECHNIQUE: Contiguous axial slices of the abdomen and pelvis weresubmitted after the IV administration of contrast. Coronal and sagittalreformatted images were provided. Contrast utilized: 100 mL Isovue 300 IV. DOSE OPTIMIZATION AND RADIATION EXPOSURE: Radiation dose reductiontechniques were employed. CTDIvol: 2.9 - 16.3 mGy. DLP: 1745 mGy-cm. FINDINGS: Inferior chest: Bilateral dependent atelectasis. Coronary arterycalcification. Liver: Unremarkable. Gallbladder and biliary tree: No calcified gallstones. No biliary ductdilation. Pancreas: Unremarkable. No duct dilation. Spleen: Unremarkable. Adrenals: Unremarkable. Kidneys/Ureters: Normal renal size and enhancement. No hydronephrosis ornephrolithiasis. Bilateral perinephric stranding, nonspecific. Urinary bladder: Unremarkable. Reproductive organs: Mildly enlarged prostate gland. Distal esophagus, Stomach and Small Bowel: Stomach is unremarkable.Duodenal diverticulum. No bowel obstruction. Colon: Extensive diverticulosis. Focal fat stranding along a fewdiverticuli along the proximal to distal descending colon (series 301,images 65, 98, and 137). No extraluminal air. No abscess. Appendix: Normal. Peritoneum/Mesentery: No free fluid or free air. Vasculature: Aorta is normal in caliber with moderate aortoiliacatherosclerotic calcification. DAMARIS stenosis or occlusion better evaluatedon the recent CTA. IVC is unremarkable. Patent splanchnic and hepaticvasculature. Lymphatic system: No lymphadenopathy. Retroperitoneum: Unremarkable. Abdominal/pelvic wall: Fat-containing umbilical hernia. Bones: No suspicious osseous lesions. IMPRESSION: 1. Multifocal sites of mild uncomplicated diverticulitis along theproximal to distal descending colon. No extraluminal air or abscess. Josef Velazquez MD IMG CT ORDERABLES Final Result * Lipase (05/01/2025 11:43 AM FRUIT LOADER) LIPASE 15 8 - 78 U/L 05/01/2025 12:12 PM FRUIT LOADER [facility] Blood Venipuncture / Unknown 05/01/2025 11:43 AM FRUIT LOADER 05/01/2025 11:50 AM FRUIT LOADER us Josef Velazquez MD CHEMISTRY ORDERABLES Fi nal Result [facility] [address] [place] [address] * (ABNORMAL) CMP (05/01/2025 11:43 AM FRUIT LOADER) SODIUM 142 136 - 145 mmol/L 05/01/2025 12:12 PM [facility] POTASSIUM 4.1 3.5 - 5.1 mmol/L 05/01/2025 12:12 PM [facility] CHLORIDE 104 98 - 107 mmol/L 05/01/2025 12:12 PM [facility] CO2, VENOUS 27 22 - 30 mmol/L 05/01/2025 12:12 PM [facility] ANION GAP 15.1 <18.0 mmol/L 05/01/2025 12:12 PM [facility] GLUCOSE 98 70 - 99 mg/dL 05/01/2025 12:12 PM [facility] BUN 9 8 - 26 mg/dL 05/01/2025 12:12 PM [facility] CREATININE, BLOOD 0.88 0.70 - 1.30 mg/dL 05/01/2025 12:12 PM [facility] BUN/CREATININE RATIO 10(L) 12 - 20 ratio 05/01/2025 12:12 PM [facility] TOTAL PROTEIN 7.1 6.0 - 8.0 g/dL 05/01/2025 12:12 PM [facility] ALBUMIN 4.0 3.5 - 5.0 g/dL 05/01/2025 12:12 PM [facility] A/G RATIO 1.3 1.0 - 2.2 05/01/2025 12:12 PM [facility] CALCIUM 8.9 8.7 - 10.5 mg/dL 05/01/2025 12:12 PM [facility] T BILI 0.2 0.2 - 1.2 mg/dL 05/01/2025 12:12 PM [facility] SGOT (AST) 17 <43 U/L 05/01/2025 12:12 PM FRUIT LOADER [facility] SGPT (ALT) 11 <56 U/L 05/01/2025 12:12 PM FRUIT LOADER [facility] ALKALINE PHOSPHATASE 97 40 - 150 U/L 05/01/2025 12:12 PM FRUIT LOADER [facility] GFR, ESTIMATED >60 >=60 05/01/2025 12:12 PM FRUIT LOADER [facility] Comment: Creatinine Clearance is the preferred criteria for selecting drug dose adjustments in renally impaired patients. The GFR is provided as additional pertinent clinical information. GFR is reported in mL/min/1.73 sq m. Calculation based on the 2020 Chronic Kidney Disease Epidemiology Collaboration (CKD-EPI) equation refit without adjustment for race. GFR, EST. >60 >=60 025 12:12 PM [facility] Comment: Creatinine Clearance is the preferred criteria for selecting drug dose adjustments in renally impaired patients. The GFR is provided as additional pertinent clinical information. GFR is reported in mL/min/1.73 sq m. Calculation based on the 2009 Chronic Kidney Disease Epidemiology Collaboration (CKD-EPI). GFR, EST. NONAFRICAN >60 >=60 05/01/2025 12:12 PM [facility] Comment: Creatinine Clearance is the preferred criteria for selecting drug dose adjustments in renally impaired patients. The GFR is provided as additional pertinent clinical information. GFR is reported in mL/min/1.73 sq m. Calculation based on the 2009 Chronic Kidney Disease Epidemiology Collaboration (CKD-EPI). Blood Venipuncture / Unknown 05/01/2025 11:43 AM FRUIT LOADER 05/01/2025 11:50 AM FRUIT LOADER us Josef Velazquez MD CHEMISTRY ORDERABLES Fi nal Result [facility] [address] [place] [address] * PATHOLOGY CYTOLOGY NON-SOFTWARE QUALITY ANALYST (03/12/2025 9:20 AM CDT) Case Report Medical Cytology Report Case: [id number] Authorizing Provider: Charles Miguel MD Collected: 03/12/2025 09:20 AM Ordering Location: [facility] PHYSICIAN Received: 03/12/2025 09:20 AM GROUP UROLOGY Pathologist: Aria Palacio MD PhD Specimen: Urine Clean Catch 03/14/2025 8:46 AM CDT [facility] FINAL DIAGNOSIS Urine, clean catch, cytologic evaluation: - Less than optimal due to scant urothelial cells - Negative for high-grade urothelial carcinoma - Scant urothelial cells, degenerated cells, and red blood cells 03/14/2025 8:46 AM CDT [facility] at 0846 CDT Clinical Information Hematuria 03/14/2025 8:46 AM CDT [facility] Gross Description A. Received fresh labeled with the patient identifiers and urine clean catch is 80 mL of cloudy yellow fluid from which 2 cytospins are created. These slides will be fixed in 95% ETOH and subsequently pap stained for cytologic examination. 03/14/2025 8:46 AM CDT [facility] Microscopic Description Microscopic examination was performed which supports the final diagnosis. All control tissues stained appropriately. 03/14/2025 8:46 AM CDT [facility] Other URINE SPECIMEN OBTAINED BY CLEAN CATCH PROCEDURE / Unknown Non-Phlebotomy Collection / Unknown 03/12/2025 9:20 AM CDT 03/12/2025 9:20 AM CDT us Charles Miguel MD PATHOLOGY/CYTOLOGY ORDERABLES Fi nal Result [facility] [address] [place] [address] * (ABNORMAL) POCT UA AUTOMATED W/O MICRO (03/12/2025 8:41 AM CDT) POC UA SPECIFIC GRAVITY 1.020 URINE PH 5.0 5.0 - 9.0 POC URINE LEUKOCYTES Negative Negative Kwan/uL POC URINE NITRITE Negative Negative POC URINE PROTEIN Negative Negative mg/dL POC URINE GLUCOSE Norm Negative, Norm mg/dL POC URINE KETONE Negative Negative mg/dL POC URINE UROBILINOGEN Norm Norm, 0.2 E.U./dL (mg/dL), 1 E.U./dL (mg/dL) POC URINE BILIRUBIN Negative Negative mg/dL POC URINE BLOOD INSTRUMENT 50 Choco/uL(A) Negative Choco/uL POC URINE COLOR Dark Yellow POC URINE CLARITY Clear Urine 03/12/2025 8:41 AM CDT us Charles Miguel MD POINT OF CARE TESTING (MANUAL) F inal Result * NGOZI,POST-VOID RES,US,NON-IMAGING (03/12/2025 8:15 AM CDT) Narrative Rach Mathews - 03/12/2025 8:15 AM CDT Rach Mathews 03/12/2025 3:00 PM POCT Bladder Scan collected per standing order of Dr. Miguel on 03/12/2025 PVR= 0 ML us Charles Miguel MD [place] - SURGERY Final Result * CTA GENERIC (03/07/2025 12:00 AM CDT) 03/07/2025 us Provider Scan IMG CT ORDERABLES Final Result SCAN * US DOPPLER LOWER ARTERIAL W EXER LIMITED (02/19/2025 11:39 AM CDT) Anatomical Region Laterality Modality vascular N/A Ultrasound Narrative 02/20/2025 9:46 AM CDT Vascular Lower Arterial Plethysmography Procedure Patient name MILADYS Masters 1965 Indications for Study:Leg Pain and Claudication Bilateral Lower Extremities. Type of Study: Extremities Arteries:Lower Arterial Plethysmography, Doppler w. Exercise Limited. Conclusions Summary - No significant peripheral arterial disease. Signature Velocities are measured in cm/s ; Diameters are measured in cm Pressures Right Left + + + + + + + + + + !Location ! !> !Pressure !Ratio ! !> !Pressure !Ratio ! + + + + + + + + + + !Low Thigh ! ! !194 !1.59 ! ! !217 !1.78 ! + + + + + + + + + + !Calf ! ! !167 !1.37 ! ! !175 !1.43 ! + + + + + + + + + + !Ankle PT ! ! !158 !1.3 ! ! !172 !1.41 ! + + + + + + + + + + !Ankle AT ! ! !136 !1.11 ! ! !161 !1.32 ! + + + + + + + + + + !Great Toe ! ! !170 !1.39 ! ! !155 !1.27 ! + + + + + + + + + + - Brachial Pressure:Right: 122.Left:121. - TAZ:Right: 1.3.Left: 1.41. Right Plethysmographic Results + +--+--------+-----+-----+---------+ !Location !> !Pressure!Ratio!Notch!Amplitude! + +--+--------+-----+-----+---------+ !Low Thigh ! !194 !1.59 ! ! ! + +--+--------+-----+-----+---------+ !Calf ! !167 !1.37 ! ! ! + +--+--------+-----+-----+---------+ !Ankle PT ! !158 !1.3 ! ! ! + +--+--------+-----+-----+---------+ !Ankle AT ! !136 !1.11 ! ! ! + +--+--------+-----+-----+---------+ - Right Brachial Pressure:122. - Right TAZ:1.3. Left Plethysmographic Results + +--+--------+-----+-----+---------+ !Location !> !Pressure!Ratio!Notch!Amplitude! + +--+--------+-----+-----+---------+ !Low Thigh ! !217 !1.78 ! ! ! + +--+--------+-----+-----+---------+ !Calf ! !175 !1.43 ! ! ! + +--+--------+-----+-----+---------+ !Ankle PT ! !172 !1.41 ! ! ! + +--+--------+-----+-----+---------+ !Ankle AT ! !161 !1.32 ! ! ! + +--+--------+-----+-----+---------+ - Left Brachial Pressure:121. - Left TAZ:1.41. Plethysmographic Digit Evaluation Right Left + + +--+--------+-----+ + +--+--------+-----+ + !Location ! !> !Pressure!Ratio!PPG Wave Form ! !> !Pressure!Ratio!PPG Wave Form ! + + +--+--------+-----+ + +--+--------+-----+ + !Great Toe ! ! !170 !1.39 ! ! ! !155 !1.27 ! ! + + +--+--------+-----+ + +--+--------+-----+ + Post Exercise Exercise Time: 180 sec. Speed: 2.5. Inclined: 0. Right Left + + + + + + + + + + !Location ! !> !Pressure !Ratio ! !> !Pressure !Ratio ! + + + + + + + + + + !SHOE HANDLER ! ! !161 !1.15 ! ! !159 !1.14 ! + + + + + + + + + + - Brachial Pressure:Right: 140. - TAZ:Right: 1.15.Left: 1.14. Impressions Right Impression - No significant large vessel peripheral arterial disease with TAZ of 1.30. - No significant small vessel peripheral arterial disease with TBI of 1.39. Left Impression - No significant large vessel peripheral arterial disease with TAZ of 1.41 - No significant small vessel peripheral arterial disease with TBI of 1.27 Demographics Age 59 Gender Male Race Height 220 lbs. Weight BMI Assistant Operations Manager Juan R Marshall Interpreting Vernon Referring Vernon Maya Physician Francesco Physician Ordering Physician Procedure Note Francesco Junior MD - 02/20/2025 Vascular Lower Arterial Plethysmography Procedure Patient name MARYAMBRANDY ENE Bar 1965 Indications for Study:Leg Pain and Claudication Bilateral Lower Extremities. Type of Study: Extremities Arteries:Lower Arterial Plethysmography, Doppler w. Exercise Limited. Conclusions Summary - No significant peripheral arterial disease. Signature Velocities are measured in cm/s ; Diameters are measured in cm Pressures RightLeft + ++ +---- ----- + ++ + +-------- ----- ------+ !Location ! !>!Pressure !Ratio ! !> !Pressure!Ratio ! + ++ +---- ----- + ++ + +-------- ----- ------+ !Low Thigh ! !!194 !1.59 ! ! !217!1.78 ! + ++ +---- ----- + ++ + +-------- ----- ------+ !Calf ! !!167 !1.37 ! ! !175!1.43 ! + ++ +---- ----- + ++ + +-------- ----- ------+ !Ankle PT ! !!158 !1.3 ! ! !172!1.41 ! + ++ +---- ----- + ++ + +-------- ----- ------+ !Ankle AT ! !!136 !1.11 ! ! !161!1.32 ! + ++ +---- ----- + ++ + +-------- ----- ------+ !Great Toe ! !!170 !1.39 ! ! !155!1.27 ! + ++ +---- ----- + ++ + +-------- ----- ------+ - Brachial Pressure:Right: 122.Left:121. - TAZ:Right: 1.3.Left: 1.41. Right Plethysmographic Results + +--+--------+-----+-----+---------+ !Location !> !Pressure!Ratio!Notch!Amplitude! + +--+--------+-----+-----+---------+ !Low Thigh ! !194 !1.59 ! ! ! + +--+--------+-----+-----+---------+ !Calf ! !167 !1.37 ! ! ! + +--+--------+-----+-----+---------+ !Ankle PT ! !158 !1.3 ! ! ! + +--+--------+-----+-----+---------+ !Ankle AT ! !136 !1.11 ! ! ! + +--+--------+-----+-----+---------+ - Right Brachial Pressure:122. - Right TAZ:1.3. Left Plethysmographic Results + +--+--------+-----+-----+---------+ !Location !> !Pressure!Ratio!Notch!Amplitude! + +--+--------+-----+-----+---------+ !Low Thigh ! !217 !1.78 ! ! ! + +--+--------+-----+-----+---------+ !Calf ! !175 !1.43 ! ! ! + +--+--------+-----+-----+---------+ !Ankle PT ! !172 !1.41 ! ! ! + +--+--------+-----+-----+---------+ !Ankle AT ! !161 !1.32 ! ! ! + +--+--------+-----+-----+---------+ - Left Brachial Pressure:121. - Left TAZ:1.41. Plethysmographic Digit Evaluation RightLeft + ++--+--------+-----+-- ----- ++--+--------+-----+ ----- ------+ !Location ! !>!Pressure!Ratio!PPG Wave Form ! !>!Pressure!Ratio!PPG Wave Form ! + ++--+--------+-----+-- ----- ++--+--------+-----+ ----- ------+ !Great Toe ! ! !170!1.39 ! ! ! !155 !1.27 !! + ++--+--------+-----+-- ----- ++--+--------+-----+ ----- ------+ Post Exercise Exercise Time: 180 sec. Speed: 2.5. Inclined: 0. RightLeft + ++ +---- ----- + ++ + +-------- ----- ------+ !Location ! !>!Pressure !Ratio ! !> !Pressure!Ratio ! + ++ +---- ----- + ++ + +-------- ----- ------+ !SHOE HANDLER ! !!161 !1.15 ! ! !159!1.14 ! + ++ +---- ----- + ++ + +-------- ----- ------+ - Brachial Pressure:Right: 140. - TAZ:Right: 1.15.Left: 1.14. Impressions Right Impression - No significant large vessel peripheral arterial disease with TAZ of 1.30. - No significant small vessel peripheral arterial disease with TBI of 1.39. Left Impression - No significant large vessel peripheral arterial disease with TAZ of 1.41 - No significant small vessel peripheral arterial disease with TBI of 1.27 Demographics Age 59 Gender Male Race Height 220 lbs. Weight BMI Assistant Operations Manager Juan R Junior Referring Vernon Maya Physician Francesco Physician Ordering Physician Francesco Junior MD IMG US ORDERABLES Final Resu lt * PSA SCREEN (02/03/2025 11:57 AM CDT) PSA SCREEN, TOTAL <0.10 <4.00 ng/mL 02/03/2025 2:00 PM CDT [facility] Blood Venipuncture / Unknown 02/03/2025 11:57 AM CDT 02/03/2025 12:33 PM CDT Narrative [facility] - 02/03/2025 2:00 PM CDT The Real Time TomographyNIBablic Total PSA assay is a Chemiluminescent Microparticle Immunoassay (CMIA) for the quantitative determination of total PSA (both free PSA and PSA complexed to [id number]) in human serum. Total PSA values obtained with different assay methods, including Alonso PSA assays, cannot be used interchangeably. Benny Mijares MD CHEMISTRY ORDERABLES Chelsea l Result [facility] [place] [address] * CT CHEST SCREENING WO (06/10/2024 9:34 AM FRUIT LOADER) Anatomical Region Laterality Modality Chest N/A Computed Tomogra phy 06/11/2024 8:05 AM FRUIT LOADER Impressions 06/11/2024 8:07 AM FRUIT LOADER IMPRESSION: Scattered pulmonary nodules with the largest measuring up to 0.5 cm. Mild emphysematous changes of lungs with scattered mild subsegmental atelectasis and scarring. Scattered mild bronchial wall thickening, which is likely related to mild chronic bronchitis/bronchiolitis. Lung-RADS category 2: Benign appearance or behavior. Recommendation: Low dose Screening CT of chest in 12 months. Narrative 06/11/2024 8:07 AM FRUIT LOADER EXAM DESCRIPTION: CT CHEST SCREENING WO REASON [...] Jorge Melo D.O. PS: HILARIO Report ID: [id number] Reading Location: [id number] Procedure Note Jorge Melo DO - 06/11/2024 [...] Jorge Melo D.O. PS: PS Report ID: [id number] Reading Location: [place] [address] IMPRESSION: Scattered pulmonary nodules with the largest [...] IMG CT ORDERABLES Final R esult * GI IMAGING - COLONOSCOPY (09/30/2022 9:35 AM CDT) Shiva Pardo MD IMG DIAGNOSTIC ORDERABLES Final Result * Stool, Occult Blood, Diagnostic (09/21/2022 3:49 PM CDT) OCCULT BLOOD DIAG Negative Negative 09/21/2022 4:21 PM CDT [facility] Stool STOOL SPECIMEN / Unknown Non-Phlebotomy Collection / Unknown 09/21/2022 3:49 PM CDT 09/21/2022 4:21 PM CDT Tameka Zamarripa HAIR STYLIST, PRESIDENT AND CEO BODY FLUIDS & STOOLS ORDERABLES Final Result [facility] [address] [place] [address] from Last 3 Months or Most Recently Relevant to Health Maintenance Insurance MEDICARE [facility] Advance Directives * Full Code (Latest Code Status on File) Date Activated Date Inactivated Comments 05/01/2025 1:07 PM CPR-Full Treat ment: FULL ARREST: Attempt Resuscitation/CPR wit intubation and mechanical ventilation. PRE-ARREST: Use entire range of life support measures to stabilize the patient. * Full Code Date Activated Date Inactivated Comments 09/21/2022 9:58 PM 09/22/2022 7:14 AM CPR-Full Devon atment: FULL ARREST: Attempt Resuscitation/CPR wit intubation and mechanical ventilation. PRE-ARREST: Use entire range of life support measures to stabilize the patient. Care Teams Shredded Filler Hopper Feeder Relationship Specialty Start Date End Date Benny Mijares MD #[address] [address] PCP - General Family Medicine 04/19/24 Jacque Ryder APRN, PRESIDENT AND CEO #2 [place] [address] Nurse Practitioner Advanced Practice Nurse 09/23/22 Maeve Lopez APRN, PRESIDENT AND CEO #2 [place] [phone] Nurse Practitioner Cardiology 09/06/24 Blaine Ashby MD #2 [place] [phone] Consulting Physician Pulmonary Disease 10/16/24 Chau Rush MD #[address] [address] Consulting Physician Colon and Rectal Surgery 10/16/24 Francesco Junior MD [address] [address] Consulting Physician Cardiology 01/03/25 Charles Miguel MD #[address] [address] Consulting Physician Urology 03/12/25
--- OUTSIDE RECORDS SUMMARY | 2025-05-18 13:56 | XMS_ITS | Encounter Summary ---
Author Organization [facility] Address [address] [place] [address] Phone Care Team Providers Care Slab Tripper Name Role Phone Jacque Ryder Norma PICKETT, ADVERTISING ACCOUNT REPRESENTATIVE Unavailable Benny Mijares MD Primary Care Provider [phone] Maeve Lopez APRN, ADVERTISING ACCOUNT REPRESENTATIVE Unavailable Blaine Ashby MD Unavailable Chau Rush MD Unavailable Francesco Junior MD Unavailable [phone] Charles Miguel MD Unavailable Reason for Visit * Reason Comments Medication Refill Encounter Details Date Type Department Care Team (Late st Contact Info) Description 08/13/2024 Refill [facility] - Internal Medicine - [place] [address] [place] [address] Shravan Og MD [address] [place] [address] Medication Refill Social History Tobacco Use Types Packs/Day Years Used Date Smoking Tobacco: Every Day Cigarettes 0.5 20 Passive Smoke Exposure: Current Smokeless Tobacco: Former Comments:only used chew for about a year, quit chewing about 25 years ago Alcohol Use Standard Drinks/Week Comments Yes 6 (1 standard drink = 0.6 oz pur e alcohol) ONCE EVERY THREE WEEKS [facility] Utilities Answer Date Recorded In the past [...] any clubs o r organizations such as roman catholic groups, unions, fraternal or athletic groups, or [...] Total Score - Questions 1-9 0 04/28 [facility] [place] of Occupat ional Health - Occupational Stress [...] place to sleep or slept in a long-term (including now)? No 08/29/2023 Sexually Active Control [...] st Contact Info) Description 06/26/2025 2:45 PM CLAIM TAKER Office Visit [facility] - Cardiology - [place] [address] [place] [phone] Francesco Junior MD [address] [facility]. [address] [place] [phone] 07/24/2025 2:45 PM CLAIM TAKER Office Visit [facility] - Family Medicine - [place] [address] [place] [phone] Benny Mijares MD #[address] [address] documented as of this encounter Visit Diagnoses [...] Total Score: 0 05/13/20 24 1:23 PM CLAIM TAKER documented as of this encounter Care Teams Slab Tripper Relationship Specialty Start Date End Date Benny Mijares MD #[address] [address] PCP - General Family Medicine 04/19/24 Jacque Ryder APRN, ADVERTISING ACCOUNT REPRESENTATIVE #[address] [place] [address] Nurse Practitioner Advanced Practice Nurse 09/23/22 Maeve Lopez APRN, ADVERTISING ACCOUNT REPRESENTATIVE [address] [place] [phone] Nurse Practitioner Cardiology 09/06/24 Blaine Ashby MD #2 [place] [phone] Consulting Physician Pulmonary Disease 10/16/24 Chau Rush MD #[address] [address] Consulting Physician Colon and Rectal Surgery 10/16/24 Francesco Junior MD [address] [address] Consulting Physician Cardiology 01/03/25 Charles Miguel MD [address] [address] Consulting Physician Urology 03/12/25 documented as of this encounter
--- OUTSIDE RECORDS SUMMARY | 2025-05-18 13:57 | XMS_ITS ---
Author Organization Unknown Address [address] [place] [phone] Phone Care Team Providers Care Milker Machine Name Role Phone SASHA BRUNNER Attending Unavailable [...] 212 CVX Pneumococcal conjugate PCV20 , polysaccharide [id number] conjugate, adjuvant, PF 12/26/2022 Completed 216 CVX Social History Type Status Start Date End Date Code Code Syst em Smoking History Unknown if ever smoked [address] Sex Male Vital Signs Vital Sign Value Unit [place] Value [place] Unit Date/Time Recent/Initial? Code Code System Body Mass Index 32.69 kg/m2 10/28/2024 09:30 Most Recent 03018 -5 LOINC Body Mass Index 32.69 kg/m2 10/28/2024 09:25 Initial 39870 -5 LOINC Systolic Blood Pressure 124 mm[Hg] [...] O2 Saturation 99 % 2024 09:30 Initial 71888 -5 INC Pulse 61.0 /min 10/28/2024 09:30 Initial 8867- 4 INC Temperature 36.2 Sabine 97.1 F 10/29/19 09:30 Initial 8310- 5 LOINC Weight 97.52 kg 215.00 lbs 10/28/2024 09:30 Most Recent 56425 -7 LOINC Weight 97.52 kg 215.00 lbs 10/28/2024 09:25 Initial 72381 -7 [facility] Medications Medication Start Date End Date Route Frequency Dose Code Code System Medication Instructions Home Meds Atenolol 50MG Oral Tablet 07/04/2024 Unknown ORAL TWICE A DAY 50 MILLIGRAMS 764347 RxNorm TAKE 50 MILLIGRAMS ORAL TWICE A DAY Atorvastatin Calcium 40MG Oral Tablet 07/04/2024 Unknown ORAL AT BEDTIME 40 MILLIGRAMS 562353 RxNorm TAKE 40 MILLIGRAMS ORAL AT BEDTIME Citalopram 40MG Oral Tablet 07/04/2024 Unknown ORAL ONCE A DAY 40 MILLIGRAMS 680444 RxNorm TAKE 40 MILLIGRAMS ORAL ONCE A DAY Cyclobenzapri ne HCl 5MG Oral Tablet 07/04/2024 Unknown ORAL NEEDED 3 TIMES A DAY 10 MILLIGRAMS 905467 RxNorm TAKE 10 MILLIGRAMS ORAL NEEDED 3 TIMES A DAY Pantoprazole Sodium 40 MG Oral Tablet, Delayed Release 07/04/2024 Unknown ORAL ONCE A DAY 40 MG 257525 RxNorm TAKE 40 MG ORAL ONCE A DAY amLODIPine Besylate 5MG Oral Tablet 07/04/2024 Unknown ORAL ONCE A DAY 5 MILLIGRAMS 149318 RxNorm TAKE 5 MILLIGRAMS ORAL ONCE A DAY traZODone hydrochloride 50MG Oral Tablet 07/04/2024 Unknown ORAL AT BEDTIME 50 MILLIGRAMS 730634 RxNorm TAKE 50 MILLIGRAMS ORAL AT BEDTIME Albuterol Sulfate 0.09MG/1Actua tion Inhalation Suspension 07/22/2024 Unknown INHALATI ON NEEDED 1 unit(s) 7526220 RxNorm 1 EACH INHALATION NEEDED HYDROcodone bitartrate-ac etaminophen 10MG-325MG Oral Tablet 09/30/2024 10/29/19 25 BY MOUTH NEEDED 3 TIMES A DAY 1 TABLET 876652 RxNorm TAKE 1 TABLET BY MOUTH NEEDED 3 TIMES A DAY Aspirin 81MG Oral Tablet, Enteric Coated 09/30/2024 Unknown ORAL ONCE A DAY 81 MILLIGRAMS 828498 RxNorm TAKE 81 MILLIGRAMS ORAL ONCE A DAY Plavix 75MG Oral Tablet 09/30/2024 Unknown ORAL ONCE A DAY 75 MILLIGRAMS 775461 RxNorm TAKE 75 MILLIGRAMS ORAL ONCE A DAY HYDROcodone bitartrate-ac etaminophen 10MG-325MG Oral Tablet 10/28/2024 11/26/19 25 BY MOUTH NEEDED 3 TIMES A DAY 1 TABLET 222377 RxNorm TAKE 1 TABLET BY MOUTH NEEDED 3 TIMES A DAY FOR PAIN HYDROcodone bitartrate-ac etaminophen 10MG-325MG Oral Tablet 11/27/2024 12/27/19 25 BY MOUTH NEEDED 3 TIMES A DAY 1 TABLET 010318 RxNorm TAKE 1 TABLET BY MOUTH NEEDED 3 TIMES A DAY FOR PAIN HYDROcodone bitartrate-ac etaminophen 10MG-325MG Oral Tablet 12/26/2024 Unknown BY MOUTH NEEDED 3 TIMES A DAY 1 TABLET 132370 RxNorm TAKE 1 TABLET UP TO 2 [...] Code Code System GERD WITHOUT ESOPHAGITIS active 209901599 SNOMED-CT LOW BACK PAIN CO-OCCURRENT AND DUE TO BILATERAL SCIATICA active 40010705616140594 SNOM ED-CT NEUROPATHY active 447316365 SNOMED-CT DEGENERATIVE DISC DISEASE active 01216941 SNOMED-CT HERNIATED LUMBAR INTERVERTEBRAL DISC active 788046327 SNOMED-C T HERNIATED CERVICAL DISC active 776002 009 SNOMED-CT CHRONIC PAIN SYNDROME active 56081047 6 SNOMED-CT CHRONIC LOWER BACK PAIN active 962970 009 SNOMED-CT MYALGIA OF AUXILIARY MUSCLES, HEAD AND NECK active 60385337 SNOME D-CT Allergies and Adverse Reactions Allergy Substance Reaction Severity Start Date Concern Status Co de Code System No Known Drug Allergies Active 781675582 SNOMED-CT Plan of Treatment New Patient 07/04/2024 Epidural 07/22/2024 OR Epidural 07/22/2024 Epidural 07/22/2024 OR Epidural 07/22/2024 Encounters Encounter Diagnosis Start Date Code Code Sys tem Sacrococcygeal disorders, not elsewhere classified 06/2024 SNOMED-CT Personal Care Team Section Performer Name Performer Role Active Date Inactive Da te CHRISTIE WATTS PCP - Primary care physician CHRISTIE WATTS PCP - Primary care physician Progress Notes [facility] 10/28/2024 10:05 All Demographics Patient Name Age Sex Visit Number Admission Date/Time Attending Physician Date of Service Room and Bed Emergency Contact ENE HOOK 1965 59 years Male [id number] 10/28/2024 09:25 Brandon Marshall 10/28/2024 03-OP Pain [...] have a cardiac catheterization tomorrow Monday10/29/24. His architectural manager said he cannot stop his blood thinners (Plavix) for 6 months. Discussed pausing any future INGA's until that time. We discussed proceeding with bilateral SI joint injections for SI joint pain. We discussed risks and benefits of the procedure. Patient wishes to proceed. Discussed reducing opioid dose and frequency following cardiac procedure. SHIPPING TEAM LEADER checked and patient offered Narcan. Radiology imaging [...]
--- OUTSIDE RECORDS SUMMARY | 2025-05-18 13:57 | XMS_ITS ---
Author Organization Unknown Address [address] [place] [phone] Phone Care Team Providers Care Tension Worker Name Role Phone SASHA BRUNNER Attending Unavailable [...] 212 CVX Pneumococcal conjugate PCV20 , polysaccharide [id number] conjugate, adjuvant, PF 12/26/2022 Completed 216 CVX Social History Type Status Start Date End Date Code Code Syst em Smoking History Unknown if ever smoked [address] Sex Male Vital Signs Vital Sign Value Unit [place] Value [place] Unit Date/Time Recent/Initial? Code Code System Body Mass Index 32.69 kg/m2 07/22/2024 13:52 Most Recent 25787 -5 LOINC Body Mass Index 32.69 kg/m2 07/17/2024 11:05 Initial 79090 -5 LOINC Systolic Blood Pressure 140 mm[Hg] [...] O2 Saturation 97 % 2024 13:56 Initial 63645 -5 LOINC Pulse 67.0 /min 07/22/2024 13:56 Initial 8867- 4 LOINC Respiration 18 /min 07/22/19 13:56 Initial 9279- 1 LOINC Temperature 36.3 Sabine 97.3 F 07/22/19 13:56 Initial 8310- 5 LOINC Weight 97.52 kg 215.00 lbs 07/22/2024 13:52 Most Recent 95876 -7 LOINC Weight 97.52 kg 215.00 lbs 07/17/2024 11:05 Initial 76601 -7 [facility] Medications Medication Start Date End Date Route Frequency Dose Code Code System Medication Instructions Home Meds Gabapentin 100MG Oral Capsule 07/04/2024 08/22/2024 BY MOUTH THREE TIMES A DAY 1 CAPSULE 382813 RxNorm TAKE 1 CAPSULE BY MOUTH THREE TIMES A DAY FOR PAIN HYDROcodone bitartrate-ac etaminophen 10MG-325MG Oral Tablet 07/04/2024 07/22/2024 BY MOUTH NEEDED 3 TIMES A DAY 1 TABLET 090971 RxNorm TAKE 1 TABLET BY MOUTH NEEDED 3 TIMES A DAY FOR PAIN Atenolol 50MG Oral Tablet 07/04/2024 Unknown ORAL TWICE A DAY 50 MILLIGRAMS 619206 RxNorm TAKE 50 MILLIGRAM S ORAL TWICE A DAY Atorvastatin Calcium 40MG Oral Tablet 07/04/2024 Unknown ORAL AT BEDTIME 40 MILLIGRAMS 241371 RxNorm TAKE 40 MILLIGRAM S ORAL AT BEDTIME Citalopram 40MG Oral Tablet 07/04/2024 Unknown ORAL ONCE A DAY 40 MILLIGRAMS 746822 RxNorm TAKE 40 MILLIGRAM S ORAL ONCE A DAY Cyclobenzapri ne HCl 5MG Oral Tablet 07/04/2024 Unknown ORAL NEEDED 3 TIMES A DAY 10 MILLIGRAMS 834699 RxNorm TAKE 10 MILLIGRAM S ORAL NEEDED 3 TIMES A DAY Pantoprazole Sodium 40 MG Oral Tablet, Delayed Release 07/04/2024 Unknown ORAL ONCE A DAY 40 MG 796704 RxNorm TAKE 40 MG ORAL ONCE A DAY amLODIPine Besylate 5MG Oral Tablet 07/04/2024 Unknown ORAL ONCE A DAY 5 MILLIGRAMS 878068 RxNorm TAKE 5 MILLIGRAM S ORAL ONCE A DAY traZODone hydrochloride 50MG Oral Tablet 07/04/2024 Unknown ORAL AT BEDTIME 50 MILLIGRAMS 731896 RxNorm TAKE 50 MILLIGRAM S ORAL AT BEDTIME Albuterol Sulfate 0.09MG/1Actua tion Inhalation Suspension 07/22/2024 Unknown INHALATI ON NEEDED 1 unit(s) 7705098 RxNorm 1 EACH INHALATIO N NEEDED HYDROcodone bitartrate-ac etaminophen 10MG-325MG Oral Tablet 07/26/2024 08/22/2024 BY MOUTH ONCE A DAY 1 TABLET 651544 RxNorm TAKE 1 TABLET BY MOUTH ONCE A DAY FOR PAIN HYDROcodone bitartrate-ac etaminophen 10MG-325MG Oral Tablet 07/26/2024 08/22/2024 BY MOUTH NEEDED 3 TIMES A DAY 1 TABLET 740715 RxNorm TAKE 1 TABLET BY MOUTH NEEDED 3 TIMES A DAY FOR PAIN Gabapentin 100MG Oral Capsule 08/22/2024 09/23/2024 BY MOUTH THREE TIMES A DAY 1 CAPSULE 983283 RxNorm TAKE 1 CAPSULE BY MOUTH THREE TIMES A DAY FOR PAIN HYDROcodone bitartrate-ac etaminophen 10MG-325MG Oral Tablet 08/23/2024 09/22/2024 BY MOUTH NEEDED 3 TIMES A DAY 1 TABLET 631959 RxNorm TAKE 1 TABLET BY MOUTH NEEDED 3 TIMES A DAY FOR PAIN HYDROcodone bitartrate-ac etaminophen 10MG-325MG Oral Tablet 08/28/2024 08/23/2024 BY MOUTH ONCE A DAY 1 TABLET 234844 RxNorm TAKE 1 TABLET BY MOUTH ONCE A DAY FOR PAIN Aspirin 81MG Oral Tablet, Enteric Coated 09/30/2024 Unknown ORAL ONCE A DAY 81 MILLIGRAMS 005965 RxNorm TAKE 81 MILLIGRAM S ORAL ONCE A DAY HYDROcodone bitartrate-ac etaminophen 10MG-325MG Oral Tablet 09/30/2024 10/28/2024 BY MOUTH NEEDED 3 TIMES A DAY 1 TABLET 741718 RxNorm TAKE 1 TABLET BY MOUTH NEEDED 3 TIMES A DAY Plavix 75MG Oral Tablet 09/30/2024 Unknown ORAL ONCE A DAY 75 MILLIGRAMS 700055 RxNorm TAKE 75 MILLIGRAM S ORAL ONCE A DAY HYDROcodone bitartrate-ac etaminophen 10MG-325MG Oral Tablet 10/28/2024 11/25/2024 BY MOUTH NEEDED 3 TIMES A DAY 1 TABLET 416090 RxNorm TAKE 1 TABLET BY MOUTH NEEDED 3 TIMES A DAY FOR PAIN HYDROcodone bitartrate-ac etaminophen 10MG-325MG Oral Tablet 11/27/2024 12/26/2024 BY MOUTH NEEDED 3 TIMES A DAY 1 TABLET 668379 RxNorm TAKE 1 TABLET BY MOUTH NEEDED 3 TIMES A DAY FOR PAIN HYDROcodone bitartrate-ac etaminophen 10MG-325MG Oral Tablet 12/26/2024 Unknown BY MOUTH NEEDED 3 TIMES A DAY 1 TABLET 550386 RxNorm TAKE 1 TABLET UP TO 2 [...] Code Syste m History of tonsillectomy completed 439635463 SNOMEDCT NJX DX/THER SBST INTRLMNR CR V/THRC W/IMG GDN 07/22/2024 completed 97807 CPT Surgery on nasal sinus completed 495588429 SN OMEDCT Problems Problem Start Date Resolved Date Status Code Code System GERD WITHOUT ESOPHAGITIS active 929225823 SNOMED-CT LOW BACK PAIN CO-OCCURRENT AND DUE TO BILATERAL SCIATICA active 61443689455044259 SNOM ED-CT NEUROPATHY active 725189820 SNOMED-CT DEGENERATIVE DISC DISEASE active 62582586 SNOMED-CT HERNIATED LUMBAR INTERVERTEBRAL DISC active 653511174 SNOMED-C T HERNIATED CERVICAL DISC active 016177 009 SNOMED-CT CHRONIC PAIN SYNDROME active 77369675 6 SNOMED-CT CHRONIC LOWER BACK PAIN active 359547 009 SNOMED-CT MYALGIA OF AUXILIARY MUSCLES, HEAD AND NECK active 05159328 SNOME D-CT Allergies and Adverse Reactions Allergy Substance Reaction Severity Start Date Concern Status Co de Code System No Known Drug Allergies Active 941414377 SNOMED-CT Plan of Treatment New Patient 07/04/2024 Epidural 07/22/2024 OR Epidural 07/22/2024 Epidural 07/22/2024 OR Epidural 07/22/2024 Encounters Encounter Diagnosis Start Date Code Code Sys tem Radiculopathy, cervical region 07/22/2024 SNOMED-CT Personal Care Team Section Performer Name Performer Role Active Date Inactive Da CHRISTIE Baker PCP - Primary care physician CHRISTIE WATTS PCP - Primary care physician Procedures Notes [facility] 07/22/2024 15:01 All Demographics Patient Name Age Sex Visit Number Admission Date/Time Attending Physician Date of Service Room and Bed Emergency Contact MILADYS ENE BENZ 1965 58 years Male [id number] 07/22/2024 13:39 Brandon Marshall 07/22/2024 SDS-8 Pain [...] EDSON Arcos-C Pre-Operative Diagnosis: M54.12-Cervical Radiculopathy Cervical [id number] Post-Operative Diagnosis: Same Location of Procedure: [ [...]
--- OUTSIDE RECORDS SUMMARY | 2025-05-18 13:57 | XMS_ITS ---
Author Organization Unknown Address [address] [place] [phone] Phone Care Team Providers Care Oil Field Laborer Name Role Phone SASHA BRUNNER Attending Unavailable [...] 212 CVX Pneumococcal conjugate PCV20 , polysaccharide [id number] conjugate, adjuvant, PF 12/26/2022 Completed 216 CVX Social History Type Status Start Date End Date Code Code Syst em Smoking History Unknown if ever smoked [address] Sex Male Vital Signs Vital Sign Value Unit H[place] Value Hinkle Unit Date/Time Recent/Initial? Code Code System Body Mass Index 32.69 kg/m2 08/22/2024 10:19 Initial 90771 -5 LOINC Systolic Blood Pressure 132 mm[Hg] 08/22/2024 10:19 Initial 8480- 6 LOINC Diastolic Blood Pressure 84 mm[Hg] 08/22/2024 10:19 Initial 8462- 4 LOINC Body Surface Area 2.16 m2 08/22/2024 10:19 Initial 3140- 1 LOINC Height 172.720 0 cm 68.00 in 08/22/2024 10:19 Initial 8302- 2 [facility] O2 Saturation 95 % 2024 10:19 Initial 88784 -5 [facility] Pulse 58.0 /min 08/22/2024 10:19 Initial 8867- 4 [facility] Temperature 36.3 Sabine 97.3 F 08/23/19 25 10:19 Initial 8310- 5 [facility] Weight 97.52 kg 215.00 lbs 08/22/2024 10:19 Initial 02607 -7 [facility] Medications Medication Start Date End Date Route Frequency Dose Code Code System Medication Instructions Home Meds Atenolol 50MG Oral Tablet 07/04/2024 Unknown ORAL TWICE A DAY 50 MILLIGRAMS 183507 RxNorm TAKE 50 MILLIGRAMS ORAL TWICE A DAY Gabapentin 100MG Oral Capsule 07/04/2024 08/23/19 25 BY MOUTH THREE TIMES A DAY 1 CAPSULE 194762 RxNorm TAKE 1 CAPSULE BY MOUTH THREE TIMES A DAY FOR PAIN Atorvastatin Calcium 40MG Oral Tablet 07/04/2024 Unknown ORAL AT BEDTIME 40 MILLIGRAMS 567297 RxNorm TAKE 40 MILLIGRAMS ORAL AT BEDTIME Citalopram 40MG Oral Tablet 07/04/2024 Unknown ORAL ONCE A DAY 40 MILLIGRAMS 932813 RxNorm TAKE 40 MILLIGRAMS ORAL ONCE A DAY Cyclobenzapri ne HCl 5MG Oral Tablet 07/04/2024 Unknown ORAL NEEDED 3 TIMES A DAY 10 MILLIGRAMS 040315 RxNorm TAKE 10 MILLIGRAMS ORAL NEEDED 3 TIMES A DAY Pantoprazole Sodium 40 MG Oral Tablet, Delayed Release 07/04/2024 Unknown ORAL ONCE A DAY 40 MG 662857 RxNorm TAKE 40 MG ORAL ONCE A DAY amLODIPine Besylate 5MG Oral Tablet 07/04/2024 Unknown ORAL ONCE A DAY 5 MILLIGRAMS 134485 RxNorm TAKE 5 MILLIGRAMS ORAL ONCE A DAY traZODone hydrochloride 50MG Oral Tablet 07/04/2024 Unknown ORAL AT BEDTIME 50 MILLIGRAMS 113993 RxNorm TAKE 50 MILLIGRAMS ORAL AT BEDTIME Albuterol Sulfate 0.09MG/1Actua tion Inhalation Suspension 07/22/2024 Unknown INHALATI ON NEEDED 1 unit(s) 6619523 RxNorm 1 EACH INHALATION NEEDED HYDROcodone bitartrate-ac etaminophen 10MG-325MG Oral Tablet 07/26/2024 08/23/19 25 BY MOUTH NEEDED 3 TIMES A DAY 1 TABLET 167727 RxNorm TAKE 1 TABLET BY MOUTH NEEDED 3 TIMES A DAY FOR PAIN HYDROcodone bitartrate-ac etaminophen 10MG-325MG Oral Tablet 07/26/2024 08/23/19 25 BY MOUTH ONCE A DAY 1 TABLET 851053 RxNorm TAKE 1 TABLET BY MOUTH ONCE A DAY FOR PAIN Gabapentin 100MG Oral Capsule 08/22/2024 09/24/19 25 BY MOUTH THREE TIMES A DAY 1 CAPSULE 159369 RxNorm TAKE 1 CAPSULE BY MOUTH THREE TIMES A DAY FOR PAIN HYDROcodone bitartrate-ac etaminophen 10MG-325MG Oral Tablet 08/23/2024 09/23/19 25 BY MOUTH NEEDED 3 TIMES A DAY 1 TABLET 159433 RxNorm TAKE 1 TABLET BY MOUTH NEEDED 3 TIMES A DAY FOR PAIN HYDROcodone bitartrate-ac etaminophen 10MG-325MG Oral Tablet 08/28/2024 08/24/19 25 BY MOUTH ONCE A DAY 1 TABLET 220535 RxNorm TAKE 1 TABLET BY MOUTH ONCE A DAY FOR PAIN Aspirin 81MG Oral Tablet, Enteric Coated 09/30/2024 Unknown ORAL ONCE A DAY 81 MILLIGRAMS 938035 RxNorm TAKE 81 MILLIGRAMS ORAL ONCE A DAY HYDROcodone bitartrate-ac etaminophen 10MG-325MG Oral Tablet 09/30/2024 10/29/19 25 BY MOUTH NEEDED 3 TIMES A DAY 1 TABLET 989644 RxNorm TAKE 1 TABLET BY MOUTH NEEDED 3 TIMES A DAY Plavix 75MG Oral Tablet 09/30/2024 Unknown ORAL ONCE A DAY 75 MILLIGRAMS 555787 RxNorm TAKE 75 MILLIGRAMS ORAL ONCE A DAY HYDROcodone bitartrate-ac etaminophen 10MG-325MG Oral Tablet 10/28/2024 11/26/19 25 BY MOUTH NEEDED 3 TIMES A DAY 1 TABLET 700343 RxNorm TAKE 1 TABLET BY MOUTH NEEDED 3 TIMES A DAY FOR PAIN HYDROcodone bitartrate-ac etaminophen 10MG-325MG Oral Tablet 11/27/2024 12/27/19 25 BY MOUTH NEEDED 3 TIMES A DAY 1 TABLET 911608 RxNorm TAKE 1 TABLET BY MOUTH NEEDED 3 TIMES A DAY FOR PAIN HYDROcodone bitartrate-ac etaminophen 10MG-325MG Oral Tablet 12/26/2024 Unknown BY MOUTH NEEDED 3 TIMES A DAY 1 TABLET 487666 RxNorm TAKE 1 TABLET UP TO 2 [...] Code Code System GERD WITHOUT ESOPHAGITIS active 829692049 SNOMED-CT LOW BACK PAIN CO-OCCURRENT AND DUE TO BILATERAL SCIATICA active 81373396726963367 SNOM ED-CT NEUROPATHY active 915440143 SNOMED-CT DEGENERATIVE DISC DISEASE active 58221075 SNOMED-CT HERNIATED LUMBAR INTERVERTEBRAL DISC active 337799100 SNOMED-C T HERNIATED CERVICAL DISC active 672939 009 SNOMED-CT CHRONIC PAIN SYNDROME active 82009841 6 SNOMED-CT CHRONIC LOWER BACK PAIN active 341190 009 SNOMED-CT MYALGIA OF AUXILIARY MUSCLES, HEAD AND NECK active 82636410 SNOME D-CT Allergies and Adverse Reactions Allergy Substance Reaction Severity Start Date Concern Status Co de Code System No Known Drug Allergies Active 903100573 SNOMED-CT Plan of Treatment New Patient 07/04/2024 Epidural 07/22/2024 OR Epidural 07/22/2024 Epidural 07/22/2024 OR Epidural 07/22/2024 Encounters Encounter Diagnosis Start Date Code Code Sys tem Sacrococcygeal disorders, not elsewhere classified SNOMED-CT Personal Care Team Section Performer Name Performer Role Active Date Inactive CHRISTIE Aburto PCP - Primary care physician CHRISTIE WATTS PCP - Primary care physician Progress Notes [facility] 09/19/2024 10:53 Demographics Basic Patient Name Age [...] with care plan of SI joint injection. [facility] 10/03/2024 09:02 Demographics Basic Patient Name [...] for a procedure in the OR under [facility] on 09.30.2024, for SI joint injections. [facility] 09.27.2024 Shalom called to report he [...] aware and agreeable. seen Francesco Junior MD Color Blender at [facility]. [phone] Shalom is unsure if this is his cardiology Dr, or just a Cardiac surgeon he saw. --- have reached out to this office, for notes / clearance. wants 28 day med check and to re-assess the care plan. prefers cervical treatment at this time, instead of SI joint injections. appt this afternoon. [facility] 08/22/2024 10:59 All Demographics Patient Name Age Sex Visit Number Admission Date/Time Attending Physician Date of Service Room and Bed Emergency Contact MILADYSJOSE 1965 58 years Male [id number] 08/22/2024 10:00 Brandon Marshall 08/22/2024 04-OP Pain [...]
--- OUTSIDE RECORDS SUMMARY | 2025-05-18 13:57 | XMS_ITS ---
Author Organization Unknown Address [address] [place] [address] [phone] Phone Care Team Providers Care Director Of Compensation Name Role Phone SASHA BRUNNER Attending Unavailable [...] 212 CVX Pneumococcal conjugate PCV20 , polysaccharide [id number] conjugate, adjuvant, PF 12/26/2022 Completed 216 CVX Social History Type Status Start Date End Date Code Code Syst em Smoking History Unknown if ever smoked [address] Sex Male Vital Signs Vital Sign Value Unit Patten Value Patten Unit Date/Time Recent/Initial? Code Code System Body Mass Index 32.69 kg/m2 07/04/2024 09:23 Initial 14796 -5 LOINC Systolic Blood Pressure 128 mm[Hg] 07/04/2024 09:23 Initial 8480- 6 LOINC Diastolic Blood Pressure 80 mm[Hg] 07/04/2024 09:23 Initial 8462- 4 LOINC Body Surface Area 2.16 m2 07/04/2024 09:23 Initial 3140- 1 LOINC Height 172.720 0 cm 68.00 in 07/04/2024 09:23 Initial 8302- 2 [facility] O2 Saturation 96 % 2024 09:23 Initial 97479 -5 [facility] Pulse 56.0 /min 07/04/2024 09:23 Initial 8867- 4 [facility] Temperature 36.2 Sabine 97.1 F 07/04/19 09:23 Initial 8310- 5 [facility] Weight 97.52 kg 215.00 lbs 07/04/2024 09:23 Initial 96852 -7 [facility] Medications Medication Start Date End Date Route Frequency Dose Code Code System Medication Instructions Home Meds Gabapentin 100MG Oral Capsule 07/04/2024 08/22/2024 BY MOUTH THREE TIMES A DAY 1 CAPSULE 613294 RxNorm TAKE 1 CAPSULE BY MOUTH THREE TIMES A DAY FOR PAIN HYDROcodone bitartrate-ac etaminophen 10MG-325MG Oral Tablet 07/04/2024 07/22/2024 BY MOUTH NEEDED 3 TIMES A DAY 1 TABLET 753035 RxNorm TAKE 1 TABLET BY MOUTH NEEDED 3 TIMES A DAY FOR PAIN Atenolol 50MG Oral Tablet 07/04/2024 Unknown ORAL TWICE A DAY 50 MILLIGRAMS 551918 RxNorm TAKE 50 MILLIGRAM S ORAL TWICE A DAY Atorvastatin Calcium 40MG Oral Tablet 07/04/2024 Unknown ORAL AT BEDTIME 40 MILLIGRAMS 693643 RxNorm TAKE 40 MILLIGRAM S ORAL AT BEDTIME Citalopram 40MG Oral Tablet 07/04/2024 Unknown ORAL ONCE A DAY 40 MILLIGRAMS 349247 RxNorm TAKE 40 MILLIGRAM S ORAL ONCE A DAY Cyclobenzapri ne HCl 5MG Oral Tablet 07/04/2024 Unknown ORAL NEEDED 3 TIMES A DAY 10 MILLIGRAMS 889385 RxNorm TAKE 10 MILLIGRAM S ORAL NEEDED 3 TIMES A DAY Furosemide 20MG Oral Tablet 07/04/2024 07/17/2024 ORAL NEEDED 20 MILLIGRAMS 194842 RxNorm TAKE 20 MILLIGRAM S ORAL NEEDED Pantoprazole Sodium 40 MG Oral Tablet, Delayed Release 07/04/2024 Unknown ORAL ONCE A DAY 40 MG 299005 RxNorm TAKE 40 MG ORAL ONCE A DAY amLODIPine Besylate 5MG Oral Tablet 07/04/2024 Unknown ORAL ONCE A DAY 5 MILLIGRAMS 166137 RxNorm TAKE 5 MILLIGRAM S ORAL ONCE A DAY traZODone hydrochloride 50MG Oral Tablet 07/04/2024 Unknown ORAL AT BEDTIME 50 MILLIGRAMS 846355 RxNorm TAKE 50 MILLIGRAM S ORAL AT BEDTIME Albuterol Sulfate 0.09MG/1Actua tion Inhalation Suspension 07/22/2024 Unknown INHALATI ON NEEDED 1 unit(s) 0007510 RxNorm 1 EACH INHALATIO N NEEDED HYDROcodone bitartrate-ac etaminophen 10MG-325MG Oral Tablet 07/26/2024 08/22/2024 BY MOUTH ONCE A DAY 1 TABLET 965006 RxNorm TAKE 1 TABLET BY MOUTH ONCE A DAY FOR PAIN HYDROcodone bitartrate-ac etaminophen 10MG-325MG Oral Tablet 07/26/2024 08/22/2024 BY MOUTH NEEDED 3 TIMES A DAY 1 TABLET 335379 RxNorm TAKE 1 TABLET BY MOUTH NEEDED 3 TIMES A DAY FOR PAIN Gabapentin 100MG Oral Capsule 08/22/2024 09/23/2024 BY MOUTH THREE TIMES A DAY 1 CAPSULE 259272 RxNorm TAKE 1 CAPSULE BY MOUTH THREE TIMES A DAY FOR PAIN HYDROcodone bitartrate-ac etaminophen 10MG-325MG Oral Tablet 08/23/2024 09/22/2024 BY MOUTH NEEDED 3 TIMES A DAY 1 TABLET 074271 RxNorm TAKE 1 TABLET BY MOUTH NEEDED 3 TIMES A DAY FOR PAIN HYDROcodone bitartrate-ac etaminophen 10MG-325MG Oral Tablet 08/28/2024 08/23/2024 BY MOUTH ONCE A DAY 1 TABLET 153802 RxNorm TAKE 1 TABLET BY MOUTH ONCE A DAY FOR PAIN Aspirin 81MG Oral Tablet, Enteric Coated 09/30/2024 Unknown ORAL ONCE A DAY 81 MILLIGRAMS 290706 RxNorm TAKE 81 MILLIGRAM S ORAL ONCE A DAY HYDROcodone bitartrate-ac etaminophen 10MG-325MG Oral Tablet 09/30/2024 10/28/2024 BY MOUTH NEEDED 3 TIMES A DAY 1 TABLET 921475 RxNorm TAKE 1 TABLET BY MOUTH NEEDED 3 TIMES A DAY Plavix 75MG Oral Tablet 09/30/2024 Unknown ORAL ONCE A DAY 75 MILLIGRAMS 843642 RxNorm TAKE 75 MILLIGRAM S ORAL ONCE A DAY HYDROcodone bitartrate-ac etaminophen 10MG-325MG Oral Tablet 10/28/2024 11/25/2024 BY MOUTH NEEDED 3 TIMES A DAY 1 TABLET 439562 RxNorm TAKE 1 TABLET BY MOUTH NEEDED 3 TIMES A DAY FOR PAIN HYDROcodone bitartrate-ac etaminophen 10MG-325MG Oral Tablet 11/27/2024 12/26/2024 BY MOUTH NEEDED 3 TIMES A DAY 1 TABLET 527447 RxNorm TAKE 1 TABLET BY MOUTH NEEDED 3 TIMES A DAY FOR PAIN HYDROcodone bitartrate-ac etaminophen 10MG-325MG Oral Tablet 12/26/2024 Unknown BY MOUTH NEEDED 3 TIMES A DAY 1 TABLET 636429 RxNorm TAKE 1 TABLET UP TO 2 [...] Code Code System GERD WITHOUT ESOPHAGITIS active 302937865 SNOMED-CT LOW BACK PAIN CO-OCCURRENT AND DUE TO BILATERAL SCIATICA active 01364864312581270 SNOM ED-CT NEUROPATHY active 672001608 SNOMED-CT DEGENERATIVE DISC DISEASE active 36410884 SNOMED-CT HERNIATED LUMBAR INTERVERTEBRAL DISC active 257186279 SNOMED-C T HERNIATED CERVICAL DISC active 613724 009 SNOMED-CT CHRONIC PAIN SYNDROME active 56206528 6 SNOMED-CT CHRONIC LOWER BACK PAIN active 470794 009 SNOMED-CT MYALGIA OF AUXILIARY MUSCLES, HEAD AND NECK active 22262289 SNOME D-CT Allergies and Adverse Reactions Allergy Substance Reaction Severity Start Date Concern Status Co de Code System No Known Drug Allergies Active 863362409 SNOMED-CT Plan of Treatment New Patient 07/04/2024 [...] PCP - Primary care physician Progress Notes [facility] 07/04/2024 11:19 All Demographics Patient Name Age Sex Visit Number Admission Date/Time Attending Physician Date of Service Room and Bed Emergency Contact JOSE HOOK 1965 58 years Male [id number] 07/04/2024 09:13 Brandon Marshall 07/04/2024 05-OP PAIN [...] guidelines, including Official Disability Guidelines (ODG) and [employer] guidelines [...]
--- OUTSIDE RECORDS SUMMARY | 2025-05-18 13:57 | XMS_ITS ---
Author Organization Unknown Address [address] [place] [address] [phone] Phone Care Team Providers Care Shrink Pit Supervisor Name Role Phone SASHA BRUNNER Attending Unavailable [...] 212 CVX Pneumococcal conjugate PCV20 , polysaccharide [id number] conjugate, adjuvant, PF 12/26/2022 Completed 216 CVX Social History Type Status Start Date End Date Code Code Syst em Smoking History Unknown if ever smoked [address] Sex Male Vital Signs Vital Sign Value Unit Rives Value Rives Unit Date/Time Recent/Initial? Code Code System Body Mass Index 32.69 kg/m2 09/30/2024 15:20 Initial 11915 -5 LOINC Systolic Blood Pressure 156 mm[Hg] 09/30/2024 15:20 Initial 8480- 6 LOINC Diastolic Blood Pressure 94 mm[Hg] 09/30/2024 15:20 Initial 8462- 4 LOINC Body Surface Area 2.16 m2 09/30/2024 15:20 Initial 3140- 1 LOINC Height 172.720 0 cm 68.00 in 09/30/2024 15:20 Initial 8302- 2 [facility] O2 Saturation 98 % 2024 15:20 Initial 63208 -5 [facility] Pulse 55.0 /min 09/30/2024 15:20 Initial 8867- 4 [facility] Temperature 36.4 Sabine 97.5 F 10/01/19 25 15:20 Initial 8310- 5 [facility] Weight 97.52 kg 215.00 lbs 09/30/2024 15:20 Initial 71640 -7 [facility] Medications Medication Start Date End Date Route Frequency Dose Code Code System Medication Instructions Home Meds Atenolol 50MG Oral Tablet 07/04/2024 Unknown ORAL TWICE A DAY 50 MILLIGRAMS 560272 RxNorm TAKE 50 MILLIGRAMS ORAL TWICE A DAY Atorvastatin Calcium 40MG Oral Tablet 07/04/2024 Unknown ORAL AT BEDTIME 40 MILLIGRAMS 592365 RxNorm TAKE 40 MILLIGRAMS ORAL AT BEDTIME Citalopram 40MG Oral Tablet 07/04/2024 Unknown ORAL ONCE A DAY 40 MILLIGRAMS 100069 RxNorm TAKE 40 MILLIGRAMS ORAL ONCE A DAY Cyclobenzapri ne HCl 5MG Oral Tablet 07/04/2024 Unknown ORAL NEEDED 3 TIMES A DAY 10 MILLIGRAMS 530372 RxNorm TAKE 10 MILLIGRAMS ORAL NEEDED 3 TIMES A DAY Pantoprazole Sodium 40 MG Oral Tablet, Delayed Release 07/04/2024 Unknown ORAL ONCE A DAY 40 MG 482121 RxNorm TAKE 40 MG ORAL ONCE A DAY amLODIPine Besylate 5MG Oral Tablet 07/04/2024 Unknown ORAL ONCE A DAY 5 MILLIGRAMS 084550 RxNorm TAKE 5 MILLIGRAMS ORAL ONCE A DAY traZODone hydrochloride 50MG Oral Tablet 07/04/2024 Unknown ORAL AT BEDTIME 50 MILLIGRAMS 064818 RxNorm TAKE 50 MILLIGRAMS ORAL AT BEDTIME Albuterol Sulfate 0.09MG/1Actua tion Inhalation Suspension 07/22/2024 Unknown INHALATI ON NEEDED 1 unit(s) 5741008 RxNorm 1 EACH INHALATION NEEDED HYDROcodone bitartrate-ac etaminophen 10MG-325MG Oral Tablet 09/30/2024 10/29/19 25 BY MOUTH NEEDED 3 TIMES A DAY 1 TABLET 941019 RxNorm TAKE 1 TABLET BY MOUTH NEEDED 3 TIMES A DAY Aspirin 81MG Oral Tablet, Enteric Coated 09/30/2024 Unknown ORAL ONCE A DAY 81 MILLIGRAMS 588659 RxNorm TAKE 81 MILLIGRAMS ORAL ONCE A DAY Plavix 75MG Oral Tablet 09/30/2024 Unknown ORAL ONCE A DAY 75 MILLIGRAMS 972476 RxNorm TAKE 75 MILLIGRAMS ORAL ONCE A DAY HYDROcodone bitartrate-ac etaminophen 10MG-325MG Oral Tablet 10/28/2024 11/26/19 25 BY MOUTH NEEDED 3 TIMES A DAY 1 TABLET 637389 RxNorm TAKE 1 TABLET BY MOUTH NEEDED 3 TIMES A DAY FOR PAIN HYDROcodone bitartrate-ac etaminophen 10MG-325MG Oral Tablet 11/27/2024 12/27/19 25 BY MOUTH NEEDED 3 TIMES A DAY 1 TABLET 322485 RxNorm TAKE 1 TABLET BY MOUTH NEEDED 3 TIMES A DAY FOR PAIN HYDROcodone bitartrate-ac etaminophen 10MG-325MG Oral Tablet 12/26/2024 Unknown BY MOUTH NEEDED 3 TIMES A DAY 1 TABLET 449691 RxNorm TAKE 1 TABLET UP TO 2 [...] Code Code System GERD WITHOUT ESOPHAGITIS active 443363417 SNOMED-CT LOW BACK PAIN CO-OCCURRENT AND DUE TO BILATERAL SCIATICA active 70251822918045231 SNOM ED-CT NEUROPATHY active 507984903 SNOMED-CT DEGENERATIVE DISC DISEASE active 01256768 SNOMED-CT HERNIATED LUMBAR INTERVERTEBRAL DISC active 116572773 SNOMED-C T HERNIATED CERVICAL DISC active 840410 009 SNOMED-CT CHRONIC PAIN SYNDROME active 35760182 6 SNOMED-CT CHRONIC LOWER BACK PAIN active 919977 009 SNOMED-CT MYALGIA OF AUXILIARY MUSCLES, HEAD AND NECK active 87623043 SNOME D-CT Allergies and Adverse Reactions Allergy Substance Reaction Severity Start Date Concern Status Co de Code System No Known Drug Allergies Active 017172580 SNOMED-CT Plan of Treatment New Patient 07/04/2024 Epidural 07/22/2024 OR Epidural 07/22/2024 Epidural 07/22/2024 OR Epidural 07/22/2024 Encounters Encounter Diagnosis Start Date Code Code Sys tem Sacrococcygeal disorders, not elsewhere classified 09/2024 SNOMED-CT Personal Care Team Section Performer Name Performer Role Active Date Inactive Da CHRISTIE Baker PCP - Primary care physician CHRISTIE WATTS PCP - Primary care physician Progress Notes [facility] 10/03/2024 09:02 Demographics Basic Patient Name Age [...] COMMUNICATE THIS WITH THE PATIENT VIA PHONE. [facility] 09/30/2024 15:34 All Demographics Patient Name Age Sex Visit Number Admission Date/Time Attending Physician Date of Service Room and Bed Emergency Contact ENE HOOK 1965 59 years Male [id number] 09/30/2024 13:25 Brandon Marshall 09/30/2024 09-OP Pain [...]
--- NOTE | 2025-05-18 14:10 | ED_ITS ---
HPI - URI/Sore Throat General Chief Complaint: Upper Respiratory Infection Stated Complaint: Headache/Body Aches/Fever Time Seen by Provider: 05/18/25 14:12 Source: patient, RN notes reviewed and old records reviewed Mode of arrival: ambulatory Limitations: no limitations History of Present Illness HPI Narrative: 59 YEAR OLD MALE PRESENTS TO [facility] CARE WITH COMPLAINTS OF 2 DAY HISTORY OF HEADACHE, FEVER, PRODUCTIVE COUGH AND BODY ACHES. PATIENT REPORTS THAT HE HAS TAKEN TYLENOL AND ALSO THERAFLU FOR HIS SYMPTOMS. PATIENT DOES HAVE HISTORY OF TOBACCO USE. PATIENT REPORTS THAT HE IS HAVING SOME SHORTNESS OF BREATH ON EXERTION IS NOT HAVING ANY SORE THROAT. PATIENT IS ON DAILY HYDROCODONE AND REQUESTS TORADOL SHOT, PATIENT IS ON DAILY BLOOD THINNER TOLD PATIENT HE SHOULD NOT HAVE TORADOL WITH BEING ON BLOOD THINNERS. 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 MD elicited complaint: fever, cough and other (HEADACHE,BODY ACHES) Pertinent past history: other (chronic pain, tobacco abuse) Onset (ago): day(s) (2) Consistency: constant Pain scale (0-10): 7 Able to tolerate fluids by mouth: Yes Treatments prior to arrival: acetaminophen and other (THERAFLU) Related Data Home Medications ?Medication ?Instructions ?Recorded ?Confirmed ?Last Taken ?Type amlodipine 5 mg tablet 5 mg DAILY 10/19/21 06/20/23 Unknown History atenolol 50 mg tablet 50 mg DAILY 10/19/21 4 Unknown History atorvastatin 40 mg tablet 1 tablet DAILY 10/19/2105/30 Unknown History citalopram 40 mg tablet 40 tablet DAILY 10/19/21 Unknown History methocarbamol 500 mg tablet 1 tablet BID 10/19/2105/30 Unknown History pantoprazole 40 mg tablet,delayed 1 tablet PO DAILY 06/20/23 Unknown History release trazodone 50 mg tablet 1 tablet DAILY 10/19/2105/30 Unknown History clopidogrel 75 mg tablet mg 01/08/25 Unknown History hydrocodone 10 mg-acetaminophen tablet 01/08/25 Unkno wn History 325 mg tablet Allergies Allergy/AdvReac Type Severity Reaction Status Date / Time No Known Allergies Allergy Verified 01/08/25 18:57 Review of Systems Review of Systems: CONSTITUTIONAL:REPORTS malaise, chills, sweats, or fever. EYES: Denies visual changes, redness, or discharge. ENT: Reports rhinorrhea, congestion, sinus pain, NO otalgia and NO sore throat. CARDIOVASCULAR: Denies chest pain, palpitations, or edema. RESPIRATORY: Reports cough.? Reports dyspnea with exertion GASTROINTESTINAL: Denies abdominal pain, nausea, vomiting, diarrhea SKIN: Denies rash or itching. MUSCULOSKELETAL: REPORTS myalgia. NEUROLOGIC: REPORTS headache. All systems reviewed & are unremarkable except as noted in HPI and below PMFSH Past Medical History Medical History GERD (gastroesophageal reflux disease) DDD (degenerative disc disease) Hypertension Elevated cholesterol COPD (chronic obstructive pulmonary disease) Surgical History Surgical History History of sinus surgery H/O cervical spine surgery Social History Social History Smoking packs per day: 1 Smoking cigarettes per day: 20.0 Smoking status: Current every day smoker Tobacco type: cigarettes Alcohol intake: unknown Substance use type: does not use Living arrangements: with family Gender identity (if verbalized by the patient): Male Comments At time of signature, agree with nursing past medical, surgical, social and family history. There is no relevant family history pertinent to the presenting complaint Exam Narrative: GENERAL:chronic ill-appearing, looks older than stated age,well-nourished, and in no acute distress. HEAD: Normocephalic EYES: PERRLA, conjunctivae clear ENT: Nares clear, turbinates edematous and erythematous, clear discharge. Mucous membranes moist. TM pearly avilez with dull light reflex bilaterally; no tragal tenderness. Oropharynx erythematous without lesions. Tonsils not enlarged and without exudate, no drooling, no hoarseness, no trismus, uvula midline. NECK: Supple. No lymphadenopathy CHEST: Coarse breath sounds to auscultation, breath sounds equal. No wheezing, rhonchi, rales, or stridor. No respiratory distress, speaks in full sentences.cough noted with SAO2 97% on room air, mild tachypnea HEART: Regular rate and rhythm. No murmur heard. SKIN: Warm, dry, no rash. NEURO: Alert and oriented x3. PSYCH: Normal mood and affect Course Course Level of Care: Express Care Visit Vital Signs Vital signs: Vital Signs Temperature 37.3 C 05/18/25 13:54 Pulse Rate 87 05/18/25 13:54 Respiratory Rate 24 H 05/18/25 13:54 Blood Pressure 134/7 L 05/18/25 13:54 Pulse Oximetry 97 05/18/25 13:54 Oxygen Delivery Room Air 05/18/25 13:54 Temperature 37.3 C 05/18/25 13:54 Pulse Rate 87 05/18/25 13:54 Respiratory Rate 24 H 05/18/25 13:54 Blood Pressure 134/7 L 05/18/25 13:54 Pulse Oximetry 97 05/18/25 13:54 Oxygen Delivery Room Air 05/18/25 13:54 reviewed MDM MDM Narrative Medical decision making narrative: Patient tested negative for COVID and FLU chest x-ray negative for acute findings. Patient reports some dyspnea with exertion and cough and congestion with coarse breath sounds noted will treat for bronchitis with RX sent to patient pharmacy. Patient is agreeable with plan of care, Anticipatory guidance with review of reasons to seek care in ED reviewed with understanding voiced. Differential Diagnosis Differential Diagnosis: Differential diagnostic considerations for upper respiratory infection include upper respiratory infection, croup, otitis media, sinusitis, viral infection, bronchitis, influenza, pharyngitis, strep, uvulitis.? Lab Data MDM Lab Attestation statement: I personally reviewed the patient's lab results. Lab results narrative: INFLUENZA A&B NEGATIVE, COVID NEGATIVE Labs: Lab Results 05/18/25 Range/Units 14:26 POC Influenza A Ag Negative (Negative) POC Influenza B Ag Negative (Negative) POC SARS CoV-2 Ag Negative (Negative) reviewed Imaging Data Attestation: I personally reviewed and interpreted this imaging study as follows: My impression: no acute pulmonary findings Radiologist's impression: ITS Impressions Chest X-Ray 05/18/25 14:42 IMPRESSION: 1. No acute pulmonary findings. [facility] [address] [place] [address] XRay Report Signed Patient: Jose Guaman : 1965 MR#: [id number] Age: 59 Acct:[id number] Loc: EXPBE ADM Date: 05/18/[address]: Ordering Physician: Karrie Alba APRN Date of Service: 05/18/25 Procedure(s): XR chest 2V Accession Number(s): [id number] cc: Dyllan, Benny More MD; Karrie Alba APRN~ EXAMINATION: XR chest 2V DATE: 05/18/2025 14:41 INDICATION: Cough. TECHNIQUE: Frontal and lateral views of the chest were obtained. COMPARISON: None. FINDINGS: Borderline size heart. Lungs are clear of acute processes. Irma and mediastinum are normal. IMPRESSION: 1. No acute pulmonary findings. Reviewed, dictated and finalized at location T. [employer] SALESPERSON Please be advised this is a medical document. It is intended for [id number] communication. It is written in medical language and may contain unfamiliar abbreviations or verbiage. Medical documents are intended to carry relevant information, facts as evident, and the clinical opinion of the practitioner at the time of the encounter. This report may have been done utilizing a voice recognition system. Attempts have been made to correct errors. However, there may be uncorrected grammatical, spelling, and recognition errors present. The file time of this note does not necessarily represent the time of service. Dictated By: Kia Arango 05/18/25 1442 Signed By: <Electronically signed by Kia Arango in OV> Critical Care Time Critical Care Time Critical Care Time: No Discharge Plan Discharge Clinical Impression: Bronchitis Patient Disposition: Home Condition: Stable Instructions: Antibiotic Form, Acute Bronchitis (ED) Additional Instructions: INCREASE FLUIDS ESPECIALLY JUICES AND WATER [id number] COUGH AND COLD MEDICINE OF YOUR CHOICE FOR YOUR SYMPTOMS PRESCRIPTION COUGH MEDICINE DIRECTED--CAUTION DROWSINESS AND NO DRIVING OR ALCOHOL COUGH TABLETS DIRECTED FOR COUGH--DO NOT BITE, CHEW OR SUCK ON--SWALLOW WHOLE CONTINUE YOUR INHALER/NEBULIZER DIRECTED STEROIDS DIRECTED--TAKE WITH FOOD HEAT TO THE FACE 20-30 MINUTES 4-6 TIMES A DAY FOR PAIN SALT WATER GARGLES, THROAT LOZENGES OR THROAT SPRAYS DESIRED ANTIBIOTIC DIRECTED--FINISHED THE MEDICATION If your symptoms persist, change or worsen significantly before you can contact your personal physician then please, without delay, go to the emergency department for further evaluation. Follow-up with PCP in 7-10 days or sooner if needed Follow up with PCP soon in regards to your blood pressure which is elevated above threshold for referral. Blood pressure above 120/80 may indicate pre- hypertension.: 134/71 Patient Language: Malay Prescriptions: New amoxicillin-pot clavulanate 875-125 mg tablet 1 tablet PO Q12H Qty: 20 0RF prednisone 20 mg tablet 40 mg PO DAILY Qty: 10 0RF No Action atorvastatin 40 mg tablet 1 tablet DAILY methocarbamol 500 mg tablet 1 tablet BID citalopram 40 mg tablet 40 tablet DAILY trazodone 50 mg tablet 1 tablet DAILY amlodipine 5 mg tablet 5 mg DAILY pantoprazole 40 mg tablet,delayed release (DR/EC) 1 tablet PO DAILY atenolol 50 mg tablet 50 mg DAILY clopidogrel 75 mg tablet hydrocodone-acetaminophen 10-325 mg tablet triamcinolone acetonide 0.1 % cream 1 applic topical BID 7 Days Qty: 30 0RF Follow-up/Referrals: Dyllan,Benny More MD [Primary Care Provider, Unknown] Time of Disposition: 14:56 Quality Hilaria Coma Scale Eyes: Open Verbal: Oriented and Alert Motor: Follows Commands Hilaria Coma Total Score: 15
[2025-05-18 14:28] LABS: EDCOVIDSCREEN Negative (Negative); EDINFLUASCREEN Negative (Negative); EDINFLUBSCREEN Negative (Negative)
== END 2025-05-18 15:02 | disposition home or self-care (01) ==
PROVIDERS: Emergency Provider Registered Nurse; PCP Family Medicine
DX: J40 Bronchitis, not specified as acute or chronic (principal); Z20.822 Contact with and (suspected) exposure to COVID-19; F17.210 Nicotine dependence, cigarettes, uncomplicated; I10 Essential (primary) hypertension; E78.00 Pure hypercholesterolemia, unspecified; J44.9 Chronic obstructive pulmonary disease, unspecified; K21.9 Gastro-esophageal reflux disease without esophagitis
CPT/HCPCS: 71046; 87426; 87804; 99213; G0463